=== PATIENT | male | born 1955 | race Caucasian/White ===

== ENCOUNTER 2018-09-07 19:52 | Inpatient (IN) | payer BC, OTHER ==
[~2018-09-07] VITALS: Ht 185.4 cm; Wt 147.4 kg
[2018-09-07] MEDS ORDERED: NS IV 1000 ML 1,000 ML IV SCH (20:03)
--- NOTE | 2018-09-07 20:12 | ED GI ---
General Chief Complaint: Abdominal/GI Problems Stated Complaint: GI BLEED Source of Information: Patient, Family, Spouse Exam Limitations: No Limitations History of Present Illness Date Seen by Provider: Sep 07, 2018 Time Seen by Provider: 19:45 Initial Comments Dark tarry stools for the past day and a half now pain. Dizziness lightheadedness passed out multiple times called EMS by . A colonoscopy 6 months ago that was unremarkable for screening By Dr. Colmenares. Patient states for the past few weeks she's been feeling a little more weak and tired than usual but has no history of any chest pressure and heart attacks or heart disease. He uses Breo for COPD, hydrochlorothiazide for blood pressure and lisinopril. He does not smoke he does drink beer about every day and denies any recreational drug use. Allergies and Home Medications Allergies Coded Allergies: No Known Drug Allergies (Unverified , 09/07/18) Patient Home Medication List Home Medication List Reviewed: Yes Review of Systems Review of Systems Constitutional: No chills, No dizziness, No fever EENTM: No Blurred Vision, No Double Vision Respiratory: Denies Cough, Denies Shortness of Air Cardiovascular: Denies Chest Pain, Denies Edema, Denies Irregular Heart Rate, Denies Lightheadedness, Denies Palpitations, Denies Syncope Gastrointestinal: Abdomen Distended; Denies Constipated, Denies Diarrhea; Other (Black tarry stools times one and a half days) Genitourinary: Denies Burning, Denies Discharge Musculoskeletal: No back pain, No joint pain Skin: No pruritus, No rash Past Tixshco-Vhuzjg-Sqqtaq Hx Patient Social History Alcohol Use: Regular Use Alcohol Beverage of Choice: Beer Recreational Drug Use: No Smoking Status: Never a Smoker Physical Exam Vital Signs Capillary Refill : Height/Weight/BMI Height: '" Weight: lbs. oz. kg; BMI Method: General Appearance: WD/WN, mild distress HEENT: PERRL/EOMI, normal ENT inspection, TMs normal, pharynx normal ( Oropharynx is dry) Neck: non-tender, full range of motion, supple, normal inspection Respiratory: chest non-tender, lungs clear, normal breath sounds, no respiratory distress, no accessory muscle use Cardiovascular: normal peripheral pulses, regular rate, rhythm Peripheral Pulses: 2+ Radial Pulses (R), 2+ Radial Pulses (L) Gastrointestinal: normal bowel sounds, non tender, soft Extremities: normal inspection, no pedal edema, normal capillary refill Neurologic/Psychiatric: 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, no motor/sensory deficits, alert, normal mood/affect, oriented x 3, other (Atraumatic head without Jang sign, hemotympanum or raccoon eyes.) Progress/Results/Core Measures Results/Orders Lab Results Laboratory Tests Test 09/07/18 19:55 Range/Units White Blood Count 9.1 4.3-11.0 10^3/uL Red Blood Count 2.00 L 4.35-5.85 10^6/uL Hemoglobin 5.3 *L 13.3-17.7 G/DL Hematocrit 17 *L 40-54 % Mean Corpuscular Volume 85 80-99 FL Mean Corpuscular Hemoglobin 27 25-34 PG Mean Corpuscular Hemoglobin Concent 31 L 32-36 G/DL Red Cell Distribution Width 21.7 H 10.0-14.5 % Platelet Count 132 130-400 10^3/uL Mean Platelet Volume 11.2 H 7.4-10.4 FL Neutrophils (%) (Auto) 76 H 42-75 % Lymphocytes (%) (Auto) 13 12-44 % Monocytes (%) (Auto) 11 0-12 % Eosinophils (%) (Auto) 0 0-10 % Basophils (%) (Auto) 0 0-10 % Neutrophils # (Auto) 6.9 1.8-7.8 X 10^3 Lymphocytes # (Auto) 1.2 1.0-4.0 X 10^3 Monocytes # (Auto) 1.0 0.0-1.0 X 10^3 Eosinophils # (Auto) 0.0 0.0-0.3 10^3/uL Basophils # (Auto) 0.0 0.0-0.1 10^3/uL Prothrombin Time 17.9 H 12.2-14.7 SEC INR Comment 1.5 H 0.8-1.4 Activated Partial Thromboplast Time 30 24-35 SEC Sodium Level 134 L 135-145 MMOL/L Potassium Level 4.4 3.6-5.0 MMOL/L Chloride Level 106 98-107 MMOL/L Carbon Dioxide Level 19 L 21-32 MMOL/L Anion Gap 9 5-14 MMOL/L Blood Urea Nitrogen 33 H 7-18 MG/DL Creatinine 0.77 0.60-1.30 MG/DL Estimat Glomerular Filtration Rate > 60 BUN/Creatinine Ratio 43 Glucose Level 143 H 70-105 MG/DL Calcium Level 7.4 L 8.5-10.1 MG/DL Corrected Calcium 8.8 8.5-10.1 MG/DL Magnesium Level 1.3 L 1.8-2.4 MG/DL Total Bilirubin 1.1 H 0.1-1.0 MG/DL Aspartate Amino Transf (AST/SGOT) 34 5-34 U/L Alanine Aminotransferase (ALT/SGPT) 27 0-55 U/L Alkaline Phosphatase 72 40-136 U/L Troponin I < 0.30 <0.30 NG/ML Total Protein 4.4 L 6.4-8.2 GM/DL Albumin 2.3 L 3.2-4.5 GM/DL Lipase 12 8-78 U/L Serum Alcohol < 10 <10 MG/DL My Orders Orders - JAIMEE VILLATORO Saline Lock/Iv-Start (09/07/18 20:03) Ns Iv 1000 Ml (Sodium Chloride 0.9%) (09/07/18 20:03) Alcohol (09/07/18 20:03) Cbc With Automated Diff (09/07/18 20:) Comprehensive Metabolic Panel (09/07/18 20:03) Lactic Acid Analyzer (09/07/18 20:03) Lipase (09/07/18 20:03) Magnesium (09/07/18 20:03) Protime With Inr (09/07/18 20:03) Partial Thromboplastin Time (09/07/18 20:03) Troponin I (09/07/18 20:03) Type And Screen (09/07/18 20:03) Blood Culture (09/07/18 20:03) Ct Abdomen/Pelvis W (09/07/18 20:03) Ondansetron Injection (Zofran Injectio (09/07/18 20:15) Vital Signs: Special (Order) (09/07/18 20:20) Consent-Obtain Consent For (09/07/18 20:20) Monitor S/S Transfusion Reacti (09/07/18 20:20) Ns Iv 500 Ml (Sodium Chloride 0.9%) (09/07/18 20:20) Red Cells Leukocytes Reduced (09/07/18 20:20) Preop Checklist (09/07/18 20:20) Pantoprazole Injection (Protonix Injecti (09/07/18 20:39) Ct Head/Cervical Spine Wo (09/07/18 20:50) Ondansetron Injection (Zofran Injectio (09/07/18 21:00) Fentanyl Injection (Sublimaze Injection (09/07/18 21:15) Hydrocodone/Apap 5/325 Tablet (Lortab 5 (09/07/18 22:45) Iohexol Injection (Omnipaque 350 Mg/Ml 1 (09/07/18 22:45) Contrast Received (Contrast Received) (09/07/18 22:45) Ns (Ivpb) (Sodium Chloride 0.9%) (09/07/18 22:45) Medications Given in ED Current Medications Medications Dose Ordered Sig/Eduardo Route Start Time Stop Time Status Last Admin Dose Admin Acetaminophen/ Hydrocodone Bitart 1 tab ONCE ONCE PO 09/07/18 22:45 09/07/18 22:46 DC 09/07/18 22:42 1 TAB Fentanyl Citrate 50 mcg ONCE ONCE IVP 09/07/18 21:15 09/07/18 21:16 DC 09/07/18 22:44 50 MCG Iohexol 100 ml ONCE ONCE IV 09/07/18 22:45 09/07/18 22:46 DC 09/07/18 22:51 100 ML Ondansetron HCl 4 mg ONCE ONCE IVP 09/07/18 20:15 09/07/18 20:16 DC 09/07/18 21:00 4 MG Ondansetron HCl 4 mg ONCE ONCE IVP 09/07/18 21:00 09/07/18 21:01 DC 09/07/18 22:45 4 MG Pantoprazole 40 mg STK-MED ONCE .ROUTE 09/07/18 20:39 09/07/18 20:41 DC 09/07/18 22:46 80 MG Sodium Chloride 250 ml ONCE ONCE IV 09/07/18 22:45 09/07/18 22:46 DC 09/07/18 22:51 80 ML Progress Progress Note : Time: 21:[address] of the head and C-spine as well as CT of the abdomen with contrast. Protonix 80 mg. Type and crossmatched for 4 units and holding 2. Plan to move him to the ICU as he has stabilized after a 30 cc/kg fluid bolus of 2500 cc. He has now with a blood pressure laying flat 115. Diagnostic Imaging Diagonstic Imaging: CT (Without contrast) Plain Films/CT/US/NM/MRI: c-spine, head Comments No acute intracranial abnormalities. No hemorrhages, mass effect, midline shift , tumors or calvarial fracture. No fracture or mis-alignment of the cervical spine. Reviewed: Reviewed by Me Diagonstic Imaging: CT (With contrast.) Plain Films/CT/US/NM/MRI: abdomen, pelvis Comments Mostly decompressed bowels. No free fluid or air. Lumbar and thoracic spine other osseous structures as visualized are unremarkable for acute changes. There is degenerative changes noted. There is a thickened appearance to the gallbladder. Findings suspicious for reported hypertension. Hepatic steatosis with possible chronic liver disease. Small amount of ascites. Gallbladder wall thickening is likely from ascites. Ascending colon thickening could be from cirrhotic colopathy versus colitis. Nonspecific gastric distention. Reviewed: Reviewed by Me Departure Communication (Admissions) Time/Spoke to Admitting Phy: 20:55 Discussed the case with Dr. Kay. She agrees with ICU and consulting Dedra and Dr. Serna in the morning. Time/Spoke to Consulting Phy: 20:[address] Moe, General Surgery and since the patient is stable he agrees with putting the patient in the ICU on Protonix 40 mg twice a day and having Dr. Colmenares consult on the case in the morning. He'll be available for phone calls throughout the night. Impression Primary Impression: GI bleed Qualified Codes: K92.2 - Gastrointestinal hemorrhage, unspecified Additional Impressions: Acute blood loss anemia Hypomagnesemia Disposition: ADMITTED INPATIENT Condition: Critical Admissions Decision to Admit Reason: Admit from ER (General) Decision to Admit/Date: Sep 07, 2018 Time/Decision to Admit Time: 21:00 Departure-Patient Inst. Referrals: UNKNOWN (PCP/Family) Primary Care Physician JAIMEE VILLATORO Sep 07, 2018 20:11
[2018-09-07 20:15] LABS: BASOPHILS % (AUTO) 0 % (0-10); EOSINOPHILS % (AUTO) 0 % (0-10); LYMPHOCYTES # (AUTO) 1.2 X 10^3 (1.0-4.0); LYMPHOCYTES % (AUTO) 13 % (12-44); MEAN CORPUSCULAR HEMOGLOBIN 27 PG (25-34); MEAN CORPUSCULAR HGB CONC 31 G/DL (32-36); MEAN CORPUSCULAR VOLUME 85 FL (80-99); MEAN PLATELET VOLUME 11.2 FL (7.4-10.4); MONOCYTES % (AUTO) 11 % (0-12); NEUTROPHILS # (AUTO) 6.9 X 10^3 (1.8-7.8); NEUTROPHILS % (AUTO) 76 % (42-75); PLATELET COUNT 132 10^3/uL (130-400); RED CELL DISTRIBUTION WIDTH 21.7 % (10.0-14.5); WHITE BLOOD COUNT 9.1 10^3/uL (4.3-11.0)
[2018-09-07] MEDS ORDERED: PANTOPRAZOLE INJECTION 200 MG in NS (IVPB) 100 ML IV SCH (20:15)
[2018-09-07] MEDS ORDERED: ONDANSETRON 4 MG/2 ML (SDV) Z0FRAN IVP ONE ×2 (20:15→21:00)
[2018-09-07] MEDS ORDERED: PANTOPRAZOLE 40 MG (PROTONIX) VIAL IV ONE (20:15)
[2018-09-07 20:17] LABS: HEMATOCRIT 17 % (40-54); HEMOGLOBIN 5.3 G/DL (13.3-17.7)
[2018-09-07] MEDS ORDERED: NS IV 500 ML 500 ML IV SCH (20:20)
[2018-09-07 20:29] LABS: ALANINE AMINOTRANSFERASE 27 U/L (0-55); ALBUMIN 2.3 GM/DL (3.2-4.5); ALKALINE PHOSPHATASE 72 U/L (40-136); BILIRUBIN,TOTAL 1.1 MG/DL (0.1-1.0); BUN/CREATININE RATIO 43; CALCIUM 7.4 MG/DL (8.5-10.1); CARBON DIOXIDE 19 MMOL/L (21-32); CHLORIDE 106 MMOL/L (98-107); CREATININE SERUM 0.77 MG/DL (0.60-1.30); GFR ESTIMATED > 60; GLUCOSE 143 MG/DL (70-105); LIPASE 12 U/L (8-78); MAGNESIUM 1.3 MG/DL (1.8-2.4); POTASSIUM 4.4 MMOL/L (3.6-5.0); SODIUM 134 MMOL/L (135-145); TOTAL PROTEIN 4.4 GM/DL (6.4-8.2)
[2018-09-07 20:32] LABS: INR 1.5 (0.8-1.4); PROTHROMBIN TIME PATIENT 17.9 SEC (12.2-14.7)
[2018-09-07] MEDS ORDERED: PANTOPRAZOLE 40 MG (PROTONIX) VIAL ONE (20:39)
[2018-09-07] MEDS ORDERED: fentaNYL INJECTION 100 MCG/2 ML AMP IVP ONE (21:15)
[2018-09-07] MEDS ORDERED: NS 250 ML (IVPB) BAG IV ONE (22:45)
[2018-09-07] MEDS ORDERED: RECEIVED CONTRAST (Hold Metformin) IV SCH (22:45)
[2018-09-07] MEDS ORDERED: HYDROcodone/APAP 5 MG/325 MG (LORTAB) TAB PO ONE (22:45)
[2018-09-07] MEDS ORDERED: IOHEXOL 350 MG/ML 100 ML (OMNIPAQUE 350) VIAL IV ONE (22:45)
[2018-09-07 23:26] VITALS: BP 115/53
[2018-09-07 23:30] VITALS: BP 119/40
[2018-09-07 23:39] VITALS: BP 136/59
[2018-09-07 23:45] VITALS: BP 133/107
[2018-09-07 23:53] VITALS: BP 133/107
[2018-09-08] VITALS (39 sets, daily range): BP systolic 91–127; BP diastolic 36–67
[2018-09-08] MEDS ORDERED: RT-ALBUTEROL SULF 2.5 MG/3 ML PRE-MIX VIAL INH PRN
[2018-09-08] MEDS ORDERED: fentaNYL INJECTION 100 MCG/2 ML AMP ONE (00:06)
[2018-09-08 01:19] LABS: BASOPHILS % (AUTO) 0 % (0-10); EOSINOPHILS % (AUTO) 0 % (0-10); HEMATOCRIT 21 % (40-54); LYMPHOCYTES # (AUTO) 1.3 X 10^3 (1.0-4.0); LYMPHOCYTES % (AUTO) 11 % (12-44); MEAN CORPUSCULAR HEMOGLOBIN 27 PG (25-34); MEAN CORPUSCULAR HGB CONC 32 G/DL (32-36); MEAN CORPUSCULAR VOLUME 86 FL (80-99); MEAN PLATELET VOLUME 10.9 FL (7.4-10.4); MONOCYTES % (AUTO) 8 % (0-12); NEUTROPHILS # (AUTO) 9.9 X 10^3 (1.8-7.8); NEUTROPHILS % (AUTO) 81 % (42-75); PLATELET COUNT 108 10^3/uL (130-400); RED BLOOD COUNT 2.41 10^6/uL (4.35-5.85); RED CELL DISTRIBUTION WIDTH 20.2 % (10.0-14.5); WHITE BLOOD COUNT 12.2 10^3/uL (4.3-11.0)
[2018-09-08] MEDS ORDERED: NS W/KCL 20 MEQ/L 1,000 ML IV SCH (01:30)
[2018-09-08] MEDS ORDERED: ONDANSETRON 4 MG/2 ML (SDV) Z0FRAN IV PRN (01:30)
[2018-09-08 01:37] LABS: BUN/CREATININE RATIO 49; CALCIUM 7.3 MG/DL (8.5-10.1); CARBON DIOXIDE 18 MMOL/L (21-32); CHLORIDE 109 MMOL/L (98-107); CREATININE SERUM 0.75 MG/DL (0.60-1.30); GFR ESTIMATED > 60; GLUCOSE 147 MG/DL (70-105); MAGNESIUM 1.4 MG/DL (1.8-2.4); PHOSPHORUS 2.9 MG/DL (2.3-4.7); POTASSIUM 4.5 MMOL/L (3.6-5.0); SODIUM 136 MMOL/L (135-145)
[2018-09-08 01:38] LABS: HEMOGLOBIN 6.6 G/DL (13.3-17.7)
[2018-09-08] MEDS: fentaNYL INJECTION 100 MCG/2 ML AMP IV PRN ×6 (02:47→22:06)
[2018-09-08 04:50] LABS: HEMOGLOBIN 7.8 G/DL (13.3-17.7)
[2018-09-08 05:01] LABS: INR 1.4 (0.8-1.4); PROTHROMBIN TIME PATIENT 17.2 SEC (12.2-14.7)
--- NOTE | 2018-09-08 06:01 | Pulmonary Consultation ---
History of Present Illness History of Present Illness Date of Consultation 09/08/18 05:56 Date of Admission Allergies and Home Medications Allergies Coded Allergies: No Known Drug Allergies (Unverified , 09/07/18) Past Qmdjgos-Owhbiu-Itzcjf Hx Patient Social History Alcohol Use: Regular Use Number of Drinks Today: AA Alcohol Beverage of Choice: Beer Recreational Drug Use: No Smoking Status: Never a Smoker Recent Foreign Travel: Yes Contact w/Someone Who Travel: No Recent Infectious Disease Expo: No Recent Hopitalizations: No Immunizations Up To Date Date of Influenza Vaccine: Jul 28, 2018 Seasonal Allergies Seasonal Allergies: Yes Past Medical History Surgeries: Yes Respiratory: Yes COPD Cardiac: No Hypertension Neurological: No Genitourinary: No Gastrointestinal: No Musculoskeletal: No Endocrine: No HEENT: No Cancer: No Psychosocial: No Integumentary: No Blood Disorders: No Adverse Reaction/Blood Tranf: No Sepsis Event Evaluation Height, Weight, BMI Height: 6'1.00" Weight: 321lbs. 0.0oz. [id number]; 42.4 BMI Method: Exam Exam Vital Signs Date Time Temp Pulse Resp B/P (MAP) Pulse Ox O2 Delivery O2 Flow Rate FiO2 09/08/18 05:35 97.9 84 20 102/46 98 Room Air 09/08/18 05:16 98.8 87 20 91/48 99 Room Air 09/08/18 05:00 84 21 110/50 (70) 99 Room Air 09/08/18 04:14 98.3 89 14 124/46 99 Room Air 09/08/18 04:00 86 14 122/53 (76) 98 Room Air 09/08/18 03:00 86 16 112/53 (72) 98 Nasal Cannula 2.00 09/08/18 02:30 98.7 87 20 120/56 100 Room Air 09/08/18 02:11 98.4 85 20 103/56 99 Room Air 09/08/18 02:00 89 17 118/56 (76) 99 Nasal Cannula 2.00 09/08/18 01:56 97.8 89 18 127/56 99 Room Air 09/08/18 01:00 90 09/08/18 01:00 90 25 108/67 (81) 100 Nasal Cannula 2.00 09/08/18 00:45 85 14 118/51 (73) 96 Nasal Cannula 2.00 09/08/18 00:30 84 11 111/50 (70) 99 Nasal Cannula 2.00 09/08/18 00:15 81 8 99/44 (62) 100 Nasal Cannula 2.00 09/08/18 00:12 97.9 83 18 102/51 100 Nasal Cannula 2.00 09/08/18 00:00 99 Room Air 2.00 09/08/18 00:00 55 15 117/52 (73) 100 Nasal Cannula 2.00 09/07/18 23:53 98.9 87 14 133/107 100 Nasal Cannula 2.00 09/07/18 23:45 92 14 133/107 (116) 99 Nasal Cannula 2.00 09/07/18 23:39 91 99 09/07/18 23:39 99 Nasal Cannula 2.00 09/07/18 23:30 89 15 119/40 (66) 98 Nasal Cannula 2.00 09/07/18 23:27 100 09/07/18 23:26 96 18 115/53 (73) 97 Nasal Cannula 2.00 09/07/18 23:21 99 Room Air 2.00 09/07/18 23:08 94 14 136/59 (84) 99 Room Air I & O 09/08/18 07:00 Intake Total 500 ml Output Total 300 ml Balance 200 ml Height & Weight Height: 6'1.00" Weight: 321lbs. 0.0oz. 145.675372jj; 42.4 BMI Method: Peripheral Pulses: 2+ Radial Pulses (R), 2+ Radial Pulses (L) Gastrointestinal: normal bowel sounds, non tender, soft Results Lab Laboratory Tests 09/07/18 19:55 09/08/18 01:10 09/08/18 04:45 Assessment/Plan Assessment/Plan Acute GIB s/p colonoscopy 6mo ago which was normal -S/p 3 units of PRBC -Protonix 40mg IV BID -Serial H&H -surgery consulted Metabolic lactic acidosis -IVF -transfusions REJI GAXIOLA DO Sep 08, 2018 6:01 am
--- NOTE | 2018-09-08 06:18 | Diagnostic Imaging Report ---
PROCEDURE: CT head and CT cervical spine without contrast. TECHNIQUE: Multiple contiguous axial images were obtained through the brain and cervical spine without the use of intravenous contrast. Sagittal and coronal reformations through the cervical spine were then performed. INDICATION: Fall with head and neck injury. CT HEAD: Multiple contiguous axial CT images of the head were obtained. FINDINGS: Ventricles and sulci are within normal limits for size. There is no intracranial hemorrhage identified. There is no abnormal mass effect or shift of midline structures. IMPRESSION: Unremarkable CT of the head. CT cervical spine: FINDINGS: There is straightening of normal cervical lordosis with moderate narrowing of lower cervical disc spaces. There is associated endplate spurring and degenerative facet arthropathy which is most pronounced on the right at C3-C4 and C4-C5 levels. There is no evidence of an acute fracture. No paraspinous hematoma is detected. IMPRESSION: Cervical spondylosis without CT evidence of acute cervical spinal abnormality. Dictated by: Dictated on workstation # [id number]
--- NOTE | 2018-09-08 07:26 | Diagnostic Imaging Report ---
PROCEDURE: CT abdomen and pelvis with contrast. TECHNIQUE: Multiple contiguous axial images were obtained through the abdomen and pelvis after administration of intravenous contrast. INDICATION: Abdominal pain and gastrointestinal bleeding. FINDINGS: There is mild hiatal hernia. There is mural thickening of the distal esophagus with prominent paraesophageal vessels which likely represent varices. No focal hepatic or splenic lesion is identified. There is small amount of fluid surrounding the gallbladder. The stomach is distended with high density material which may be blood. There may be mild surrounding edema and inflammation along the pancreas without focal fluid collection identified. No definite renal or adrenal gland abnormality is identified. There is mild ascites. No focal fluid collection is seen to indicate abscess or hematoma. There is [id number] mural thickening in the ascending colon. IMPRESSION: Findings suggestive of portal venous hypertension and probable esophageal varices. This may be source of gastrointestinal bleeding with high density material seen within the lumen of the stomach. There is mild ascites and pericholecystic fluid. Nonspecific mural thickening of the ascending colon could be due to edema or colitis. There is nonspecific densities surrounding the pancreas. Correlation with laboratory values would be useful to exclude pancreatitis. Dictated by: Dictated on workstation # [id number]
--- NOTE | 2018-09-08 07:29 | Diagnostic Imaging Report ---
INDICATION: Anemia, hypotension and gastrointestinal bleeding. COMPARISON: No previous study is available for comparison at this time. FINDINGS: Heart size and pulmonary vasculature are within normal limits, and the lungs are clear, bilaterally. IMPRESSION: Unremarkable chest. Dictated by: Dictated on workstation # [id number]
[2018-09-08] MEDS: NS IV 1000 ML 1,000 ML IV SCH ×3 (09:06→16:39)
[2018-09-08] MEDS: PANTOPRAZOLE 40 MG (PROTONIX) VIAL IV SCH ×2 (09:06→22:05)
[2018-09-08] MEDS ORDERED: MAGNESIUM 1 GM/100 ML IVPB 200 ML IV ONE (10:03)
[2018-09-08] MEDS: MAGNESIUM 1 GM/100 ML IVPB 100 ML IV SCH ×2 (10:08→11:42)
[2018-09-08] MEDS ORDERED: OMG1KC PO (10:37)
[2018-09-08] MEDS ORDERED: MULT-35 PO (10:37)
[2018-09-08] MEDS ORDERED: LISI40TA PO (10:37)
[2018-09-08] MEDS ORDERED: CHOL5000 PO (10:37)
[2018-09-08] MEDS ORDERED: POTA99TA21 PO (10:37)
[2018-09-08] MEDS ORDERED: FLUT1BLS IH (10:37)
[2018-09-08] MEDS ORDERED: HYDR25TA4 PO (10:39)
[2018-09-08] MEDS ORDERED: FUROSEMIDE 40 MG/4 ML INJ (LASIX) IVP NR (12:00)
[2018-09-08 12:31] LABS: HEMOGLOBIN 6.8 G/DL (13.3-17.7)
[2018-09-08 12:44] LABS: INR 1.2 (0.8-1.4); PROTHROMBIN TIME PATIENT 15.6 SEC (12.2-14.7)
[2018-09-08] MEDS: POTASSIUM CL 10MEQ/50ML IVPB 50 ML IV SCH ×4 (12:56→17:38)
[2018-09-08] MEDS ORDERED: NS IV 500 ML 500 ML ONE (13:08)
[2018-09-08] MEDS ORDERED: EPINEPHrine INJECTION 1 MG/ML AMP ONE (15:11)
--- NOTE | 2018-09-08 15:17 | History & Physical-Hospitalist ---
BOWEN OCASIO MD 09/08/18 1517: History of Present Illness HPI/Chief Complaint The patient is a 63-year-old white male who was admitted yesterday. He reports that he has had intermittent black stools for several months. These were clear and he would go on. Over the last week or so he has had much more consistent black stools and sometimes several per day. He reports that yesterday he had multiple stools and began to feel weaker and weaker and finally he slumped to the floor. When he attempted to get back up. Was unable to do so. He was brought to the emergency room for further evaluation and was found to have a hemoglobin of 5.3. Date Seen 09/08/18 Time Seen by a Provider: 15:16 Attending Physician Bowen Ocasio MD PCP Alejandro Crockett DO Referring Physician Date of Admission Sep 07, 2018 at 23:00 Home Medications & Allergies Home Medications Reviewed patient Home Medication Reconciliation performed by pharmacy medication reconciliations care technician and/or nursing. Patients Allergies have been reviewed. Allergies Allergies Coded Allergies No Known Drug Allergies (Nsjztcjpdr74/25/18) Past Jsoqtds-Osiujh-Tsuncj Hx Patient Social History Alcohol Use: Regular Use Number of Drinks Today: AA Alcohol Beverage of Choice: Beer Recreational Drug Use: No Smoking Status: Never a Smoker Physical Abuse Screen: No Sexual Abuse: No Recent Foreign Travel: Yes Contact w/other who traveled: No Recent Hopitalizations: No Recent Infectious Disease Expo: No Immunizations Up To Date Date of Influenza Vaccine: Jul 28, 2018 Seasonal Allergies Seasonal Allergies: Yes Past Medical History Cardiac: Hypertension History of Blood Disorders: No Adverse Reaction to Blood Humphries: No Physical Exam Physical Exam Vital Signs Vital Signs - First Documented 09/07/18 09/07/18 20:03 23:21 Temp 97.6 Pulse 94 Resp 14 B/P (MAP) 92/43 (59) Pulse Ox 100 O2 Delivery Room Air O2 Flow Rate 2.00 Capillary Refill : Less Than 3 Seconds Height, Weight, BMI Height: 6'1.00" Weight: 321lbs. 0.0oz. 145.120955yy; 42.4 BMI Method:Stated Results Results/Procedures Labs Laboratory Tests 09/07/18 19:55 09/08/18 01:10 09/08/18 04:45 11/26/18 12:20 Patient resulted labs reviewed. Clinical Quality Measures DVT/VTE Risk/Contraindication: Risk Factor Score Per Nursin RFS Level Per Nursing on Admit: 3=High CARMENELVIN BAJWAJULIETA Barros MED STUDENT 09/08/18 1613: History of Present Illness HPI/Chief Complaint CC: Dizziness and Fatigue HPI: The patient is a 63 y/o male who presented to the ER at [facility] yesterday with a chief complaint of dizziness and fatigue. He states that he has been having intermittent black and tarry stools for the past 4-5 months. He also states that he occasionally has upper abdominal pain which he describes as a mild burning. He also admits to occasional heartburn. Saturday morning he awoke around 5:30 am and was very dizzy upon sitting up in bed and just felt like he couldn't get out of bed. He said that throughout the day he would become dizzy and unsteady whenever he would attempt to get up and move around. Around 7pm he passed out while trying to ambulate and his convinced him to go to the ER. He states that he had a colonoscopy 1 year ago that was unremarkable. Source: patient, family Exam Limitations: no limitations Home Medications & Allergies Home Medications Active Scripts Medications Dose Route/Sig Max Daily Dose Days Date Category Hydrochlorothiazide 25 Mg Tablet 25 Mg PO DAILY 09/08/18 Reported Daily Multiple Vitamin (Multivitamin) 1 Each Tablet 1 Tab PO DAILY 09/08/18 Reported Breo Ellipta 200-25 Mcg INH (Fluticasone/Vilanterol) 1 Each Blst.w.dev 1 Puff IH DAILY 09/08/18 Reported Lisinopril 40 Mg Tablet 40 Mg PO DAILY 09/08/18 Reported Potassium (Potassium Gluconate) 99 Mg Tablet 99 Mg PO DAILY 09/08/18 Reported Fish Oil 1,000 mg Capsule ([place]wood 3 Polyunsat Fatty Acids) 1,000 Mg Cap 1,000 Mg PO DAILY 09/08/18 Reported Vitamin D3 (Cholecalciferol (Vitamin D3)) 5,000 Unit Capsule 5,000 Unit PO DAILY 09/08/18 Reported Allergies Allergies: NKDA Past Plwrimr-Nggcgs-Bjzvlt Hx Patient Social History Marrital Status: Employed/Student: employed Alcohol Use: Regular Use Alcohol Beverage of Choice: Beer Recreational Drug Use: No Smoking Status: Never a Smoker Past Medical History Surgeries: Orthopedic Cardiac: Hypertension Review of Systems Constitutional: dizziness, weakness EENTM: no symptoms reported Respiratory: short of breath Cardiovascular: no symptoms reported Gastrointestinal: RUQ, LUQ, abdominal pain Musculoskeletal: no symptoms reported Skin: no symptoms reported Physical Exam Physical Exam General Appearance: No Apparent Distress, WD/WN Respiratory: Chest Non Tender, Lungs Clear, Normal Breath Sounds, No Accessory Muscle Use, No Respiratory Distress Cardiovascular: Regular Rate, Rhythm, No Edema, No Gallop, No JVD, No Murmur, Normal Peripheral Pulses Gastrointestinal: Normal Bowel Sounds, No Organomegaly, No Pulsatile Mass, Non Tender, Soft Neurologic/Psychiatric: Alert, Oriented x3, No Motor/Sensory Deficits, Normal Mood/Affect Skin: Normal Color, Warm/Dry Results Results/Procedures Labs Vital Signs 09/08/18 09/08/18 03:00 13:27 Temp 98.2 Pulse 85 Resp 25 B/P (MAP) 115/62 Pulse Ox 99 O2 Delivery Room Air O2 Flow Rate 2.00 Laboratory Tests 09/07/18 19:55 09/08/18 01:10 09/08/18 04:45 09/08/18 12:20 Assessment/Plan Assessment and Plan Assessment: 1) GI bleed 2) Anemia Plan: 1) Surgical consult -Possible EGD to determine source of bleeding 2) Blood transfusion -due to very low Hgb and Hct 3) Cardiac consultation -due to previous Htn and syncope BOWEN OCASIO MD Sep 08, 2018 15:17 TAJ ROGERS MED STUDENT Sep 08, 2018 16:13
[2018-09-08] MEDS ORDERED: MIDAZOLAM 2 MG/2 ML (VERSED) VIAL ONE ×3 (15:33→15:52)
--- NOTE | 2018-09-08 15:37 | Conscious Sedation/ASA ---
Conscious Sedation Pre-Proced Time 15:00 ASA Score 2 For ASA 3 and 4: Consider anesthesia and medical clearance. Also, for patients with a history of failed moderate sedation consider anesthesia. Airway Lungs Heart ASA score ASA 1: a normal healthy patient ASA 2: a patient with a mild systemic disease (mid diabetes, controlled hypertension, obesity ASA 3: a patient with a severe systemic disease that limits activity (angina , COPD, prior Myocardial infarction) ASA 4: a patient with an incapacitating disease that is a constant threat to life (CHF, renal failure) ASA 5: a moribund patient not expected to survive 24 hrs. (ruptured aneurysm) ASA 6: a declared brain patient whose organs are being harvested. For emergent operations, add the letter E after the classification Mallampati Classification Grade 3 Sedation Plan Analgesia, Amnesia, Plan communicated to team members, Discussed options with patient/fam, Discussed risks with patient/fam The patient is an appropriate candidate to undergo the planned procedure, sedation, and anesthesia. The patient immediately re-assessed prior to indication. CHAVEZ THURMAN MD Sep 08, 2018 3:37 pm
--- NOTE | 2018-09-08 15:37 | Progress Note-Pre Operative ---
Pre-Operative Progress Note H&P Reviewed The H&P was reviewed, patient examined and no changes noted. Date Seen by Provider: Sep 08, 2018 Time Seen by Provider: 15:00 Date H&P Reviewed: Sep 08, 2018 Time H&P Reviewed: 15:00 Pre-Operative Diagnosis: dark tarry stool CHAVEZ THURMAN MD Sep 08, 2018 3:37 pm
--- NOTE | 2018-09-08 17:19 | Progress Note-Post Operative ---
Post-Operative Progess Note Surgeon (s)/Boiler Riveter (s) Surgeon CHAVEZ THURMAN MD Boiler Riveter: none Pre-Operative Diagnosis dark tarry stool Post-Operative Diagnosis stage 1 esophageal varices, reflux esophagitis(stage 2), small hiatal hernia(1cm), moderate gastritis. no active bleed. Procedure & Operative Findings Date of Procedure 09/08/18 Procedure Performed/Findings EGD with bx. Anesthesia Type CS Estimated Blood Loss Estimated blood loss (mL): minimal Specimens/Packing Specimens Removed antrum CHAVEZ THURMAN MD Sep 08, 2018 5:19 pm
[2018-09-08 18:59] LABS: BASOPHILS % (AUTO) 0 % (0-10); EOSINOPHILS # (AUTO) 0.1 10^3/uL (0.0-0.3); EOSINOPHILS % (AUTO) 1 % (0-10); HEMATOCRIT 23 % (40-54); HEMOGLOBIN 7.3 G/DL (13.3-17.7); LYMPHOCYTES # (AUTO) 1.8 X 10^3 (1.0-4.0); LYMPHOCYTES % (AUTO) 16 % (12-44); MEAN CORPUSCULAR HEMOGLOBIN 27 PG (25-34); MEAN CORPUSCULAR HGB CONC 32 G/DL (32-36); MEAN CORPUSCULAR VOLUME 85 FL (80-99); MEAN PLATELET VOLUME 11.2 FL (7.4-10.4); MONOCYTES # (AUTO) 1.4 X 10^3 (0.0-1.0); MONOCYTES % (AUTO) 13 % (0-12); NEUTROPHILS # (AUTO) 7.5 X 10^3 (1.8-7.8); NEUTROPHILS % (AUTO) 69 % (42-75); PLATELET COUNT 70 10^3/uL (130-400); RED BLOOD COUNT 2.66 10^6/uL (4.35-5.85); RED CELL DISTRIBUTION WIDTH 18.9 % (10.0-14.5); WHITE BLOOD COUNT 10.8 10^3/uL (4.3-11.0)
[2018-09-09] VITALS (19 sets, daily range): BP systolic 99–138; BP diastolic 38–68
[2018-09-09 00:24] LABS: HEMOGLOBIN 6.8 G/DL (13.3-17.7)
--- NOTE | 2018-09-09 00:41 | CONSULTATION REPORT ---
DATE OF SERVICE: 09/08/2018 ATTENDING PRIMARY CARE PHYSICIAN: Alejandro Crockett DO ADMITTING PHYSICIAN: Dr. Kay. HISTORY OF PRESENT ILLNESS: The patient is a 63-year-old male known to us. We had seen him for a colonoscopy approximately 6 months ago. The colonoscopy did show some chronic hemorrhoids as well as some mild diverticulosis; however, no other abnormalities detected. He did present with fatigue as well as black tarry stools. He then felt extremely weak and then states that it was hard for him to even ambulate. He was brought to the emergency room and found to have a hemoglobin of 5.3. Upon further questioning, he reports that he has had noticed some slightly darker stools in the past several months. He also does admit to a significant history of alcohol use over the years, which used to be hard alcohol on a daily basis. However, right now he drinks six beers on a daily basis. He does report history of reflux; however, does not take any medications for this. Since being admitted, he has received approximately 3 units of blood and states that he does feel better at this time. PAST MEDICAL HISTORY: Hypertension. PAST SURGICAL HISTORY: None. ALLERGIES: No known drug allergies. MEDICATIONS: Hydrochlorothiazide 25 mg daily, lisinopril 20 mg daily. SOCIAL HISTORY: Negative smoke. Positive alcohol approximately 6 beers daily. FAMILY HISTORY: Noncontributory. VITAL SIGNS: Temperature 98.6, blood pressure 120's systolic, pulse 112, respirations 17, pulse ox 93% on 2 liters nasal cannula. REVIEW OF SYSTEMS: Well-nourished male currently in no acute distress. He is not experiencing any shortness of breath or difficulty breathing. No chest pain, palpitations, diaphoresis. No nausea, vomiting with intermittent episodes of dark tarry stools, which was much more significant in the past several weeks with weakness, fatigue and shortness of breath. No fever, chills, no recent inadvertent weight loss. All the other review of systems is negative. PHYSICAL EXAMINATION: CHEST: Few scattered rales bilaterally. HEART: Regular, no murmurs. EXTREMITIES: No lower extremity edema, negative Homans sign. HEENT: No scleral icterus. NECK: No cervical lymphadenopathy. ABDOMEN: Soft, nontender, nondistended. SKIN: Warm, dry. LABORATORY DATA: Hemoglobin 6.8, hematocrit 21, platelets 108. ASSESSMENT AND PLAN: A 63-year-old male with an upper GI bleed. He does have an extensive history of alcoholism as well as a history of gastroesophageal reflux disease and possible peptic ulcer disease with dark tarry stools and fatigue and anemia. He did have a recent colonoscopy, which was generally normal with no signs of bleeding. Due to his recent findings of symptomatic anemia and signs and symptoms of upper gastrointestinal bleeding, we will proceed with an EGD as well as biopsies as appropriate. Job ID: [id number] DocumentID: [id number] Dictated Date: 09/08/2018 17:29:17 Bar And Filler Assembler Date: 09/09/2018 00:40:44 Dictated By: CHAVEZ THURMAN MD MTDD
[2018-09-09] MEDS: fentaNYL INJECTION 100 MCG/2 ML AMP IV PRN ×2 (01:09→03:09)
--- NOTE | 2018-09-09 03:08 | OPERATIVE REPORT ---
DATE OF SERVICE: 09/08/2018 ATTENDING PRIMARY CARE PHYSICIAN: Dr. Crockett. ADMITTING PHYSICIAN: Dr. Kay. PREOPERATIVE DIAGNOSIS: Upper gastrointestinal bleed. POSTOPERATIVE DIAGNOSES: Stage I esophageal varices, reflux esophagitis, stage II small hiatal hernia 1 cm in size, moderate severity diffuse gastritis, no active bleeding. PROCEDURE: EGD with biopsy. SURGEON: Dr. Colmenares. ANESTHESIA: Conscious sedation. ESTIMATED BLOOD LOSS: Minimal. FINDINGS: Stage I esophageal varices, no active bleeding. Chronic stage II reflux esophagitis. No ulcerations or strictures. A small hiatal hernia 1 cm in size. Moderate severity gastritis, no active bleeding. INDICATIONS: The patient is a 63-year-old male known to us. We had seen him for a colonoscopy approximately 6 months ago. The colonoscopy showed mild chronic stage II external and internal hemorrhoids as well as mild diverticulosis; however, no bleeding sources identified. He presented with fatigue and dark tarry stools, which had been going on for a few weeks as well as shortness of breath. His hemoglobin was found to be 5.4. Upon further questioning, he does admit to a significant alcohol history in the past. He also does have signs and symptoms of gastroesophageal reflux disease as well as potential peptic ulcer disease. He does not report any hematemesis, no coffee-ground emesis. DESCRIPTION OF PROCEDURE: The patient maintained in the ICU under monitor. After adequate IV pain and sedating medications and conscious sedation, the mouthpiece was applied. The endoscope was placed in the mouth, visualizing the pharynx and hypopharyngeal region. Vocal cords, epiglottis and vallecula identified and appeared to be normal. The endoscope was gently intubated at the esophageal opening and esophagus was insufflated. The endoscope was then advanced through the first, second and third portions of the esophagus. At the distal esophagus, stage I esophageal varices were identified, which were straight and encompassed less than one third of the luminal diameter of the esophagus. There was no active bleeding identified. There was a reflux esophagitis stage II with no strictures or ulcerations as well as no active bleeding. The endoscope was then easily advanced in the stomach and endoscope retroflexed, visualizing small hiatal hernia approximately 1 cm in size. There was moderate severity gastritis identified. There were no formal ulcerations as well as no active bleeding identified. Biopsy was taken of the antrum of the stomach with forceps with visualization of good hemostasis. The endoscope was then advanced through the pylorus into the first and second portions of duodenum, which appeared normal with no distal obstructions. The endoscope was then slowly withdrawn while taking a second look and suctioning of residual air with no additional findings. The patient tolerated the procedure well. It appears that he does have early esophageal varices, most likely secondary to early liver cirrhosis, which would be modified Child-Simmons classification A. We will recommend the necessary medical management with a low sodium diet as well as water restriction and spironolactone. He will also need to refrain from alcohol and proceed with change in dietary and lifestyle including regularly scheduled exercise and weight loss. We will also start him on Protonix 40 mg daily. Job ID: [id number] DocumentID: [id number] Dictated Date: 09/08/2018 17:39:17 Hot Dimpling Machine Operator Date: 09/09/2018 03:07:35 Dictated By: CHAVEZ COLMENARES MD
[2018-09-09 05:00] LABS: BASOPHILS % (AUTO) 0 % (0-10); EOSINOPHILS # (AUTO) 0.2 10^3/uL (0.0-0.3); EOSINOPHILS % (AUTO) 2 % (0-10); HEMATOCRIT 23 % (40-54); HEMOGLOBIN 7.3 G/DL (13.3-17.7); LYMPHOCYTES # (AUTO) 2.1 X 10^3 (1.0-4.0); LYMPHOCYTES % (AUTO) 23 % (12-44); MEAN CORPUSCULAR HEMOGLOBIN 27 PG (25-34); MEAN CORPUSCULAR HGB CONC 32 G/DL (32-36); MEAN CORPUSCULAR VOLUME 85 FL (80-99); MONOCYTES # (AUTO) 1.4 X 10^3 (0.0-1.0); MONOCYTES % (AUTO) 15 % (0-12); NEUTROPHILS # (AUTO) 5.5 X 10^3 (1.8-7.8); NEUTROPHILS % (AUTO) 60 % (42-75); PLATELET COUNT 60 10^3/uL (130-400); RED BLOOD COUNT 2.69 10^6/uL (4.35-5.85); RED CELL DISTRIBUTION WIDTH 18.5 % (10.0-14.5); WHITE BLOOD COUNT 9.2 10^3/uL (4.3-11.0)
[2018-09-09 05:19] LABS: BUN/CREATININE RATIO 44; CALCIUM 7.2 MG/DL (8.5-10.1); CARBON DIOXIDE 20 MMOL/L (21-32); CHLORIDE 111 MMOL/L (98-107); CREATININE SERUM 0.87 MG/DL (0.60-1.30); GFR ESTIMATED > 60; GLUCOSE 118 MG/DL (70-105); PHOSPHORUS 2.9 MG/DL (2.3-4.7); POTASSIUM 4.1 MMOL/L (3.6-5.0); SODIUM 137 MMOL/L (135-145)
[2018-09-09] MEDS: POTASSIUM CL 10MEQ/50ML IVPB 50 ML IV SCH (06:23)
[2018-09-09] MEDS: MAGNESIUM 1 GM/100 ML IVPB 100 ML IV SCH (06:24)
[2018-09-09] MEDS: KCL 20 MEQ TAB (K-DUR) PO SCH (06:24)
[2018-09-09] MEDS: NS IV 1000 ML 1,000 ML IV SCH ×4 (06:31→20:30)
--- NOTE | 2018-09-09 07:38 | Pulmonary Progress Note ---
Subjective Time Seen by a Provider: 07:36 Subjective/Events-last exam PT feels better. He did have EGD yesterday. Sepsis Event Evaluation Height, Weight, BMI Height: 6'1.00" Weight: 321lbs. 0.0oz. [id number]; 42.4 BMI Method:Stated Focused Exam Lactate Level 09/07/18 01:10: Lactic Acid Level 3.08*H 09/07/18 23:03: Lactic Acid Level 3.34*H Exam Exam Vital Signs Date Time Temp Pulse Resp B/P (MAP) Pulse Ox O2 Delivery O2 Flow Rate FiO2 09/09/18 06:50 Room Air 09/09/18 06:00 78 14 130/67 (88) 98 Nasal Cannula 2.00 09/09/18 05:00 81 16 120/68 (85) 100 Nasal Cannula 2.00 09/09/18 04:00 81 119/43 (68) 99 Nasal Cannula 2.00 09/09/18 04:00 Nasal Cannula 2.00 09/09/18 03:46 97.9 80 13 125/50 100 Nasal Cannula 1.00 09/09/18 03:00 81 25 103/54 (70) 99 Nasal Cannula 2.00 09/09/18 02:00 86 14 108/56 (73) 100 Nasal Cannula 2.00 09/09/18 02:00 98.1 85 15 108/56 100 Nasal Cannula 2.00 09/09/18 01:42 98.1 82 14 99/54 100 NIV Bilevel 2 09/09/18 01:00 84 09/09/18 01:00 84 15 108/50 (69) 100 Nasal Cannula 2.00 09/09/18 00:00 98.8 90 17 112/47 (68) 100 Nasal Cannula 2.00 09/09/18 00:00 Nasal Cannula 2.00 09/08/18 23:00 89 10 104/56 (72) 100 Nasal Cannula 2.00 09/08/18 22:00 84 14 121/43 (69) 100 Nasal Cannula 2.00 09/08/18 21:00 87 13 115/61 (79) 100 Nasal Cannula 2.00 09/08/18 20:00 98.4 81 16 102/56 (71) 100 Nasal Cannula 2.00 09/08/18 20:00 Nasal Cannula 2.00 09/08/18 19:00 82 09/08/18 19:00 82 26 120/55 (76) 95 Nasal Cannula 2.00 09/08/18 18:00 81 14 112/52 (72) 100 Nasal Cannula 2.00 09/08/18 17:00 84 15 124/63 (83) 100 Nasal Cannula 2.00 09/08/18 16:00 112 14 114/56 (75) 93 Nasal Cannula 2.00 09/08/18 16:00 98.6 112 17 116/36 93 Nasal Cannula 2.00 09/08/18 16:00 98.6 Nasal Cannula 2.00 09/08/18 15:00 Room Air 09/08/18 15:00 86 35 106/49 (68) 99 Room Air 09/08/18 14:00 79 25 124/48 (73) 98 Room Air 09/08/18 13:27 98.2 85 25 115/62 99 Room Air 09/08/18 13:13 98.7 80 26 99/48 100 Room Air 09/08/18 13:00 80 19 118/43 (68) 99 Room Air 09/08/18 13:00 89 09/08/18 12:00 85 25 124/44 (70) 99 Room Air 09/08/18 11:30 99.6 81 25 113/54 100 Room Air 09/08/18 11:30 99.6 Room Air 09/08/18 11:30 Room Air 09/08/18 11:00 85 25 106/49 (68) 99 Room Air 09/08/18 10:00 80 25 111/49 (69) 100 Room Air 09/08/18 09:15 98.9 86 26 110/41 100 Room Air 09/08/18 09:00 99.6 79 24 117/48 100 Room Air 09/08/18 09:00 83 27 117/48 (71) 99 Room Air 09/08/18 08:37 100 Room Air 09/08/18 08:15 Room Air 09/08/18 08:15 99.6 Room Air 09/08/18 08:15 99.6 85 28 121/43 100 Room Air 09/08/18 08:00 84 14 99/45 (63) 98 Room Air I & O 09/09/18 07:00 Intake Total 4630 ml Output Total 2525 ml Balance 2105 ml Height & Weight Height: 6'1.00" Weight: 321lbs. 0.0oz. 145.389911oy; 42.4 BMI Method:Stated General Appearance: No Apparent Distress, WD/WN Respiratory: Chest Non Tender, Lungs Clear, Normal Breath Sounds, No Accessory Muscle Use, No Respiratory Distress Cardiovascular: Regular Rate, Rhythm, No Edema, No Gallop, No JVD, No Murmur, Normal Peripheral Pulses Capillary Refill: Less Than 3 Seconds Peripheral Pulses: 2+ Radial Pulses (R), 2+ Radial Pulses (L) Gastrointestinal: normal bowel sounds, non tender, soft Neurologic/Psychiatric: Alert, Oriented x3, No Motor/Sensory Deficits, Normal Mood/Affect Skin: Normal Color, Warm/Dry Results Lab Laboratory Tests 09/07/18 19:55 09/08/18 01:10 09/08/18 04:45 09/08/18 12:20 09/08/18 18:45 09/09/18 00:15 09/09/18 04:40 Assessment/Plan Assessment/Plan Acute upper GIB s/p colonoscopy 6mo ago which was normal -S/p 5 units of PRBC -Protonix 40mg IV BID -Serial H&H -surgery consulted Acute gastritis hx of alcoholism Liver cirrhosis with portal HTN -If Hb continues to drop will need to add Octreotide Metabolic lactic acidosis -IVF -transfusions Obesity with probable SAVAGE -Will do PSG as out patient Will keep in ICU for at least another 24hrs. Son is at bedside all questions answered. Pt had a lot of questions and concerns regarding plan of care. Family asked if patient needs to be transferred. I don't believe there is any reason to transfer patient at this time. Will continue to follow Hb. Will do pulmonary and sleep eval as an out patient. 60min spent with patient and family discussing plan of care. Also discussed with Dr. Reveles's who is also at bedside visiting patient. REJI GAXIOLA DO Sep 09, 2018 07:38
--- NOTE | 2018-09-09 08:26 | Diagnostic Imaging Report ---
Indication: Anemia and hypotension. Comparison: 09/08/2018. Findings: Stable mild cardiomegaly. Visualized lungs are clear. No pneumothorax or pleural effusion. Normal pulmonary vasculature. Impression: Stable, negative portable chest radiograph. Dictated by: Dictated on workstation # [id number]
[2018-09-09] MEDS: SPIRONOLACTONE 25 MG (ALDACTONE) TAB PO SCH (08:52)
[2018-09-09] MEDS: PANTOPRAZOLE 40 MG (PROTONIX) VIAL IV SCH ×2 (08:52→20:38)
--- NOTE | 2018-09-09 09:02 | Consultation-Cardiology ---
HPI-Cardiology Cardiology Consultation Date of Consultation 09/09/18 Date of Admission Time Seen by Provider: 08:58 Indication: Syncope HPI 63 years old gentleman with history of hypertension, COPD, started having dizziness and lightheadedness then resulted in syncope, came into the emergency room and noted to have severe anemia, received blood transfusion and underwent endoscopy which showed peptic ulcer disease. He admitted some dyspnea on exertion, mild pedal edema, occasional palpitation, denied any chest pain. Drinks alcohol in large amount. Reported that he was tested for sleep apnea and it was negative Home Medications & Allergies Allergies: Coded Allergies: No Known Drug Allergies (Unverified , 09/07/18) Home Medication List Reviewed: Yes [id number] Hx Patient Social History Marital Status: Employed/Student: employed Alcohol Use: Regular Use Recreational Drug Use: No Smoking Status: Never a Smoker Recent Foreign Travel: Yes Recent Infectious Disease Expo: No Recent Hopitalizations: No Physical Abuse Screen: No Sexual Abuse: No Immunizations Up To Date Date of Influenza Vaccine: Jul 28, 2018 Past Medical History Past medical history as described below Family Medical History Family Medical Hx Noncontributory to his current condition Review of Systems Constitutional: see HPI, dizziness, malaise, weakness EENTM: see HPI, no symptoms reported Respiratory: see HPI; No cough; dyspnea on exertion; No hemoptysis, No orthopnea, No phlegm, No short of breath, No stridor, No wheezing, No other Cardiovascular: see HPI; No chest pain; edema; No Hx of Intervention; palpitations; No syncope, No vascular heart diseas, No other Gastrointestinal: see HPI, melena Genitourinary: no symptoms reported, see HPI Musculoskeletal: no symptoms reported, see HPI Skin: no symptoms reported, see HPI Psychiatric/Neurological: No Symptoms Reported, See HPI Reviewed Test Results Reviewed Test Results Lab Laboratory Tests Test 09/08/18 12:20 09/08/18 13:23 09/08/18 18:45 09/09/18 00:15 Range/Units Hemoglobin 6.8 *L 7.3 L 6.8 *L 13.3-17.7 G/DL Hematocrit 21 L 23 L 21 L 40-54 % Prothrombin Time 15.6 H 12.2-14.7 SEC INR Comment 1.2 0.8-1.4 Lab Scanned Report Transfusion Reaction Form [id number] White Blood Count 10.8 4.3-11.0 10^3/uL Red Blood Count 2.66 L 4.35-5.85 10^6/uL Mean Corpuscular Volume 85 80-99 FL Mean Corpuscular Hemoglobin 27 25-34 PG Mean Corpuscular Hemoglobin Concent 32 32-36 G/DL Red Cell Distribution Width 18.9 H 10.0-14.5 % Platelet Count 70 L 130-400 10^3/uL Mean Platelet Volume 11.2 H 7.4-10.4 FL Neutrophils (%) (Auto) 69 42-75 % Lymphocytes (%) (Auto) 16 12-44 % Monocytes (%) (Auto) 13 H 0-12 % Eosinophils (%) (Auto) 1 0-10 % Basophils (%) (Auto) 0 0-10 % Neutrophils # (Auto) 7.5 1.8-7.8 X 10^3 Lymphocytes # (Auto) 1.8 1.0-4.0 X 10^3 Monocytes # (Auto) 1.4 H 0.0-1.0 X 10^3 Eosinophils # (Auto) 0.1 0.0-0.3 10^3/uL Basophils # (Auto) 0.0 0.0-0.1 10^3/uL Test 09/09/18 04:40 Range/Units White Blood Count 9.2 4.3-11.0 10^3/uL Red Blood Count 2.69 L 4.35-5.85 10^6/uL Hemoglobin 7.3 L 13.3-17.7 G/DL Hematocrit 23 L 40-54 % Mean Corpuscular Volume 85 80-99 FL Mean Corpuscular Hemoglobin 27 25-34 PG Mean Corpuscular Hemoglobin Concent 32 32-36 G/DL Red Cell Distribution Width 18.5 H 10.0-14.5 % Platelet Count 60 L 130-400 10^3/uL Mean Platelet Volume 12.0 H 7.4-10.4 FL Neutrophils (%) (Auto) 60 42-75 % Lymphocytes (%) (Auto) 23 12-44 % Monocytes (%) (Auto) 15 H 0-12 % Eosinophils (%) (Auto) 2 0-10 % Basophils (%) (Auto) 0 0-10 % Neutrophils # (Auto) 5.5 1.8-7.8 X 10^3 Lymphocytes # (Auto) 2.1 1.0-4.0 X 10^3 Monocytes # (Auto) 1.4 H 0.0-1.0 X 10^3 Eosinophils # (Auto) 0.2 0.0-0.3 10^3/uL Basophils # (Auto) 0.0 0.0-0.1 10^3/uL Sodium Level 137 135-145 MMOL/L Potassium Level 4.1 3.6-5.0 MMOL/L Chloride Level 111 H 98-107 MMOL/L Carbon Dioxide Level 20 L 21-32 MMOL/L Anion Gap 6 5-14 MMOL/L Blood Urea Nitrogen 38 H 7-18 MG/DL Creatinine 0.87 0.60-1.30 MG/DL Estimat Glomerular Filtration Rate > 60 BUN/Creatinine Ratio 44 Glucose Level 118 H 70-105 MG/DL Calcium Level 7.2 L 8.5-10.1 MG/DL Phosphorus Level 2.9 2.3-4.7 MG/DL Magnesium Level 2.0 1.8-2.4 MG/DL Physical Exam Vital Signs Vital Signs - First Documented 09/07/18 09/07/18 09/09/18 20:03 23:21 01:42 Temp 97.6 Pulse 94 Resp 14 B/P (MAP) 92/43 (59) Pulse Ox 100 O2 Delivery Room Air O2 Flow Rate 2.00 FiO2 2 Capillary Refill : Less Than 3 Seconds Height, Weight, BMI Height: 6'1.00" Weight: 319lbs. 0.0oz. 144.900204cv; 42.4 BMI Method:Stated General Appearance: No Apparent Distress, WD/WN Eyes: Bilateral Eye Normal Inspection, Bilateral Eye PERRL, Bilateral Eye EOMI HEENT: PERRL/EOMI, TMs Normal, Normal ENT Inspection, Pharynx Normal Neck: Full Range of Motion, Normal Inspection, Non Tender, Supple, Carotid Bruit (Faint bruit bilaterally) Respiratory: Chest Non Tender, Lungs Clear, Normal Breath Sounds, No Accessory Muscle Use, No Respiratory Distress Cardiovascular: Regular Rate, Rhythm, No Edema, No Gallop, No JVD, No Murmur, Normal Peripheral Pulses Gastrointestinal: Normal Bowel Sounds, No Organomegaly, No Pulsatile Mass, Non Tender, Soft Back: Normal Inspection, No CVA Tenderness, No Vertebral Tenderness Extremity: Normal Capillary Refill, Normal Inspection, Normal Range of Motion, Non Tender, No Calf Tenderness, Pedal Edema (Trace edema) Neurologic/Psychiatric: Alert, Oriented x3, No Motor/Sensory Deficits, Normal Mood/Affect Skin: Normal Color, Warm/Dry Lymphatic: No Adenopathy A/P-Cardiology Admission Diagnosis Syncope Hypertension Hyperlipidemia Obesity Assessment/Plan Syncope secondary to GI bleed and severe anemia, transfused, feeling better. Peptic ulcer disease, managed by Dr. Colmenares. Hypertension, controlled, monitor blood pressure Hyperlipidemia, continue to monitor lipids. Mild peripheral edema, maintained on diuretics, planning to evaluate echocardiogram. COPD, on bronchodilator, followed and managed by Dr. Serna, was tested for sleep apnea and reported that it was negative. Obesity, BMI 42, we discussed weight loss and exercise Alcoholism, educated about limiting alcohol intake Faint bilateral carotid bruit, will evaluate carotid ultrasound as an outpatient Clinical Quality Measures DVT/VTE Risk/Contraindication: Risk Factor Score Per Nursin RFS Level Per Nursing on Admit: 3=High JEANMARIE MARCANO MD Sep 09, 2018 09:02
[2018-09-09 12:05] LABS: HEMOGLOBIN 7.8 G/DL (13.3-17.7)
--- NOTE | 2018-09-09 14:52 | Progress Note (SOAP) ---
Subjective Date Seen by a Provider: Sep 09, 2018 Time Seen by a Provider: 12:00 Subjective/Events-last exam doing better today. mild wheezing. tolerating diet. no BM's. Hb stable. Focused Exam Lactate Level 09/07/18 01:10: Lactic Acid Level 3.08*H 09/07/18 23:03: Lactic Acid Level 3.34*H 09/09/18 10:01: Lactic Acid Level 1.81 Objective Exam Vital Signs Date Time Temp Pulse Resp B/P (MAP) Pulse Ox O2 Delivery O2 Flow Rate FiO2 09/09/18 12:00 84 14 118/49 (72) 98 Room Air 09/09/18 11:00 91 11 101/52 (68) 100 Room Air 09/09/18 10:00 82 17 115/47 (69) 100 Room Air 09/09/18 09:00 92 15 114/38 (63) 96 Room Air 09/09/18 08:00 Nasal Cannula 2.00 09/09/18 08:00 84 15 138/44 (75) 100 Room Air 09/09/18 08:00 97.9 Room Air 09/09/18 07:00 78 14 125/59 (81) 98 Nasal Cannula 2.00 09/09/18 07:00 76 09/09/18 06:50 Room Air 09/09/18 06:00 78 14 130/67 (88) 98 Nasal Cannula 2.00 09/09/18 05:00 81 16 120/68 (85) 100 Nasal Cannula 2.00 09/09/18 04:00 98.1 09/09/18 04:00 81 119/43 (68) 99 Nasal Cannula 2.00 09/09/18 04:00 Nasal Cannula 2.00 09/09/18 03:46 97.9 80 13 125/50 100 Nasal Cannula 1.00 09/09/18 03:00 81 25 103/54 (70) 99 Nasal Cannula 2.00 09/09/18 02:00 86 14 108/56 (73) 100 Nasal Cannula 2.00 09/09/18 02:00 98.1 85 15 108/56 100 Nasal Cannula 2.00 09/09/18 01:42 98.1 82 14 99/54 100 NIV Bilevel 2 09/09/18 01:00 84 09/09/18 01:00 84 15 108/50 (69) 100 Nasal Cannula 2.00 09/09/18 00:00 98.8 90 17 112/47 (68) 100 Nasal Cannula 2.00 09/09/18 00:00 Nasal Cannula 2.00 09/08/18 23:00 89 10 104/56 (72) 100 Nasal Cannula 2.00 09/08/18 22:00 84 14 121/43 (69) 100 Nasal Cannula 2.00 09/08/18 21:00 87 13 115/61 (79) 100 Nasal Cannula 2.00 09/08/18 20:00 98.4 81 16 102/56 (71) 100 Nasal Cannula 2.00 09/08/18 20:00 Nasal Cannula 2.00 09/08/18 19:00 82 09/08/18 19:00 82 26 120/55 (76) 95 Nasal Cannula 2.00 09/08/18 18:00 81 14 112/52 (72) 100 Nasal Cannula 2.00 09/08/18 17:00 84 15 124/63 (83) 100 Nasal Cannula 2.00 09/08/18 16:00 112 14 114/56 (75) 93 Nasal Cannula 2.00 09/08/18 16:00 98.6 112 17 116/36 93 Nasal Cannula 2.00 09/08/18 16:00 98.6 Nasal Cannula 2.00 09/08/18 15:00 Room Air 09/08/18 15:00 86 35 106/49 (68) 99 Room Air I & O 09/09/18 07:00 Intake Total 4830 ml Output Total 2800 ml Balance 2030 ml Capillary Refill : Less Than 3 Seconds General Appearance: No Apparent Distress HEENT: PERRL/EOMI Neck: Full Range of Motion Respiratory: Chest Non Tender, Wheezing Cardiovascular: Regular Rate, Rhythm Gastrointestinal: normal bowel sounds, non tender, soft Extremity: Normal Capillary Refill Neurologic/Psychiatric: Alert, Oriented x3 Skin: Normal Color Lymphatic: No Adenopathy Results Lab Laboratory Tests 09/08/18 18:45: White Blood Count 10.8, Red Blood Count 2.66L, Hemoglobin 7.3L, Hematocrit 23L, Mean Corpuscular Volume 85, Mean Corpuscular Hemoglobin 27, Mean Corpuscular Hemoglobin Concent 32, Red Cell Distribution Width 18.9H, Platelet Count 70L, Mean Platelet Volume 11.2H, Neutrophils (%) (Auto) 69, Lymphocytes (%) (Auto) 16 , Monocytes (%) (Auto) 13H, Eosinophils (%) (Auto) 1, Basophils (%) (Auto) 0, Neutrophils # (Auto) 7.5, Lymphocytes # (Auto) 1.8, Monocytes # (Auto) 1.4H, Eosinophils # (Auto) 0.1, Basophils # (Auto) 0.0 09/09/18 00:15: Hemoglobin 6.8*L, Hematocrit 21L 09/09/18 04:40: White Blood Count 9.2, Red Blood Count 2.69L, Hemoglobin 7.3L, Hematocrit 23L, Mean Corpuscular Volume 85, Mean Corpuscular Hemoglobin 27, Mean Corpuscular Hemoglobin Concent 32, Red Cell Distribution Width 18.5H, Platelet Count 60L, Mean Platelet Volume 12.0H, Neutrophils (%) (Auto) 60, Lymphocytes (%) (Auto) 23 , Monocytes (%) (Auto) 15H, Eosinophils (%) (Auto) 2, Basophils (%) (Auto) 0, Neutrophils # (Auto) 5.5, Lymphocytes # (Auto) 2.1, Monocytes # (Auto) 1.4H, Eosinophils # (Auto) 0.2, Basophils # (Auto) 0.0, Sodium Level 137, Potassium Level 4.1, Chloride Level 111H, Carbon Dioxide Level 20L, Anion Gap 6, Blood Urea Nitrogen 38H, Creatinine 0.87, Estimat Glomerular Filtration Rate > 60, BUN /Creatinine Ratio 44, Glucose Level 118H, Calcium Level 7.2L, Phosphorus Level 2.9, Magnesium Level 2.0 09/09/18 09:20: Lab Scanned Report Transfusion Reaction Form 09/09/18 10:01: Lactic Acid Level 1.81 09/09/18 11:19: Lab Scanned Report Transfusion Reaction Form 09/09/18 11:58: Hemoglobin 7.8L, Hematocrit 24L Microbiology 09/07/18 Blood Culture - Preliminary, Resulted No growth 09/07/18 MRSA Screen - Preliminary, Resulted MRSA not isolated Assessment/Plan Assessment/Plan Assess & Plan/Chief Complaint upper GI bleed with syncopal episode. stage 1 esophageal varices no actively bleeding. child-arredondo A. hb relatively stable. do not think further transfusion necessary at this point. recommend medical management with low sodium(<2g) and water restriction(<2 liters/day). also ETOH cessation. will add protonix and spironolactone. Clinical Quality Measures DVT/VTE Risk/Contraindication: Risk Factor Score Per Nursin RFS Level Per Nursing on Admit: 3=High CHAVEZ THURMAN MD Sep 09, 2018 2:52 pm
--- NOTE | 2018-09-09 16:12 | Progress Note-Hospitalist ---
Progress Note Progress Notes/Assess & Plan Date Seen 09/09/18 Time Seen by Provider: 16:07 Assessment & Plan The patient reports he continues to have black stools. His hemoglobin is 7+. He has received a total of 5 units of packed red blood cells. His CT scan did not describe cirrhosis but did note increased portal blood flow. Upper endoscopy by Dr. Colmenares today showed esophageal varices. The patient accounts to a considerable alcohol intake mostly beer. Physical exam: He is alert and oriented. Lungs are clear to auscultation. CV is regular without murmur. Abdomen is large. There are no masses or tenderness to palpation Impression: Upper GI bleed ostensibly from esophageal varices. 2.alcohol abuse 3.persistent melena. Plan: Continue to monitor hemoglobin Focused Exam Lactate Level 09/07/18 01:10: Lactic Acid Level 3.08*H 09/07/18 23:03: Lactic Acid Level 3.34*H 09/09/18 10:01: Lactic Acid Level 1.81 BOWEN OCASIO MD Sep 09, 2018 16:12
[2018-09-09 18:18] LABS: HEMOGLOBIN 7.3 G/DL (13.3-17.7)
[2018-09-10] VITALS (9 sets, daily range): BP systolic 119–154; BP diastolic 60–88
[2018-09-10 00:05] LABS: HEMOGLOBIN 7.1 G/DL (13.3-17.7)
[2018-09-10] MEDS: NS IV 1000 ML 1,000 ML IV SCH (03:43)
[2018-09-10 04:01] LABS: BASOPHILS % (AUTO) 1 % (0-10); EOSINOPHILS # (AUTO) 0.2 10^3/uL (0.0-0.3); EOSINOPHILS % (AUTO) 3 % (0-10); HEMATOCRIT 22 % (40-54); HEMOGLOBIN 7.3 G/DL (13.3-17.7); LYMPHOCYTES # (AUTO) 1.6 X 10^3 (1.0-4.0); LYMPHOCYTES % (AUTO) 25 % (12-44); MEAN CORPUSCULAR HEMOGLOBIN 28 PG (25-34); MEAN CORPUSCULAR HGB CONC 33 G/DL (32-36); MEAN CORPUSCULAR VOLUME 86 FL (80-99); MEAN PLATELET VOLUME 11.7 FL (7.4-10.4); MONOCYTES % (AUTO) 15 % (0-12); NEUTROPHILS # (AUTO) 3.7 X 10^3 (1.8-7.8); NEUTROPHILS % (AUTO) 56 % (42-75); PLATELET COUNT 55 10^3/uL (130-400); RED CELL DISTRIBUTION WIDTH 18.8 % (10.0-14.5); WHITE BLOOD COUNT 6.5 10^3/uL (4.3-11.0)
[2018-09-10 04:21] LABS: BUN/CREATININE RATIO 29; CALCIUM 7.3 MG/DL (8.5-10.1); CARBON DIOXIDE 20 MMOL/L (21-32); CHLORIDE 109 MMOL/L (98-107); CREATININE SERUM 0.72 MG/DL (0.60-1.30); GFR ESTIMATED > 60; GLUCOSE 118 MG/DL (70-105); MAGNESIUM 1.8 MG/DL (1.8-2.4); PHOSPHORUS 2.6 MG/DL (2.3-4.7); POTASSIUM 3.9 MMOL/L (3.6-5.0); SODIUM 134 MMOL/L (135-145)
[2018-09-10] MEDS: MAGNESIUM 1 GM/100 ML IVPB 100 ML IV SCH (05:11)
[2018-09-10] MEDS: POTASSIUM CL 10MEQ/50ML IVPB 50 ML IV SCH (05:11)
[2018-09-10] MEDS: KCL 20 MEQ TAB (K-DUR) PO SCH (05:11)
[2018-09-10 06:13] LABS: HEMOGLOBIN 6.8 G/DL (13.3-17.7)
--- NOTE | 2018-09-10 07:12 | Pulmonary Progress Note ---
Subjective Time Seen by a Provider: 07:11 Subjective/Events-last exam Pt has no complaints he did have BM yesterday. Sepsis Event Evaluation Height, Weight, BMI Height: 6'1.00" Weight: 318lbs. 1.0oz. 144.603590ym; 42.4 BMI Method:Stated Focused Exam Lactate Level 09/07/18 23:03: Lactic Acid Level 3.34*H 09/09/18 10:01: Lactic Acid Level 1.81 Exam Exam Vital Signs Date Time Temp Pulse Resp B/P (MAP) Pulse Ox O2 Delivery O2 Flow Rate FiO2 09/10/18 06:00 78 97 Room Air 09/10/18 04:00 Room Air 09/10/18 04:00 79 131/62 (85) 98 Room Air 09/10/18 03:00 80 98 Room Air 09/10/18 02:00 90 95 Room Air 09/10/18 01:00 79 92 Room Air 09/10/18 01:00 83 09/10/18 00:00 Room Air 09/10/18 00:00 89 123/60 (81) 98 Room Air 09/09/18 20:47 100 Room Air 09/09/18 20:00 90 125/56 (79) 97 Room Air 09/09/18 20:00 Room Air 09/09/18 19:00 90 09/09/18 18:00 95 17 124/57 (79) 100 Room Air 09/09/18 16:38 Nasal Cannula 2.00 09/09/18 14:00 82 17 115/47 (69) 100 Room Air 09/09/18 13:00 87 09/09/18 13:00 92 15 114/38 (63) 96 Room Air 09/09/18 12:00 Nasal Cannula 2.00 09/09/18 12:00 84 14 118/49 (72) 98 Room Air 09/09/18 11:00 91 11 101/52 (68) 100 Room Air 09/09/18 10:00 82 17 115/47 (69) 100 Room Air 09/09/18 09:00 92 15 114/38 (63) 96 Room Air 09/09/18 08:00 Nasal Cannula 2.00 09/09/18 08:00 84 15 138/44 (75) 100 Room Air 09/09/18 08:00 97.9 Room Air I & O 09/10/18 07:00 Intake Total 2916 ml Output Total 2025 ml Balance 891 ml Height & Weight Height: 6'1.00" Weight: 318lbs. 1.0oz. 144.485386kc; 42.4 BMI Method:Stated General Appearance: No Apparent Distress, WD/WN HEENT: PERRL/EOMI Neck: Full Range of Motion Respiratory: Chest Non Tender, Lungs Clear, Normal Breath Sounds, No Accessory Muscle Use, No Respiratory Distress Cardiovascular: Regular Rate, Rhythm Capillary Refill: Less Than 3 Seconds Peripheral Pulses: 2+ Radial Pulses (R), 2+ Radial Pulses (L) Gastrointestinal: normal bowel sounds, non tender, soft Extremity: Normal Capillary Refill Neurologic/Psychiatric: Alert, Oriented x3 Skin: Normal Color Lymphatic: No Adenopathy Results Lab Laboratory Tests 09/08/18 12:20 09/08/18 18:45 09/09/18 00:15 09/09/18 04:40 09/09/18 11:58 09/09/18 18:10 09/09/18 23:57 09/10/18 03:40 09/10/18 05:50 Assessment/Plan Assessment/Plan Acute upper GIB s/p colonoscopy 6mo ago which was normal -S/p 5 units of PRBC -Protonix 40mg IV BID -D/C serial H&H -surgery consulted -D/C IVF -Repeat H&H and if still 6.8 or lower transfuse 1 unit - Will d/c serial H&H and IVF and just check CBC daily Acute gastritis -Protonix hx of alcoholism Liver cirrhosis with portal HTN Metabolic lactic acidosis -improved Obesity with probable SAVAGE -Will do PSG as out patient REJI GAXIOLA DO Sep 10, 2018 07:12
[2018-09-10 07:29] LABS: HEMOGLOBIN 7.2 G/DL (13.3-17.7)
[2018-09-10] MEDS: PANTOPRAZOLE 40 MG (PROTONIX) VIAL IV SCH ×2 (07:42→20:28)
[2018-09-10] MEDS: SPIRONOLACTONE 25 MG (ALDACTONE) TAB PO SCH (07:43)
--- NOTE | 2018-09-10 07:48 | Diagnostic Imaging Report ---
INDICATION: Anemia and hypotension. COMPARISON: 09/09/2018. FINDINGS: Stable mild cardiomegaly. Visualized lungs are clear. No pleural effusion or pneumothorax. IMPRESSION: No adverse development. Dictated by: Dictated on workstation # [id number]
--- NOTE | 2018-09-10 07:56 | Cardiology Progress Note ---
Subjective Date Seen by Provider: Sep 10, 2018 Time Seen by Provider: 07:54 Subjective/Events-last exam Patient is laying down in bed, feeling better, had melanotic stool yesterday morning since then no further bowel movement Review of Systems General: No Chills, No Night Sweats, No Fatigue, No Malaise, No Appetite, No Other HEENT: No Head Aches, No Visual Changes, No Eye Pain, No Ear Pain, No Dysphasia , No Sinus Congestion, No Post Nasal Drip, No Sore Throat, No Other Pulmonary: No Dyspnea, No Cough, No Pleuritic Chest Pain, No Other Cardiovascular: No: Chest Pain, Palpitations, Orthopnea, Paroxysmal Noc. Dyspnea, Edema, Lt Headedness, Other Focused Exam Lactate Level 09/07/18 23:03: Lactic Acid Level 3.34*H 09/09/18 10:01: Lactic Acid Level 1.81 Objective-Cardiology Exam Last Set of Vital Signs Vital Signs 09/09/18 09/09/18 09/09/18 09/10/18 09/10/18 09/10/18 01:42 16:38 18:00 04:00 06:00 07:47 Temp 97.1 Pulse 78 Resp 17 B/P (MAP) 131/62 (85) Pulse Ox 97 O2 Delivery Room Air O2 Flow Rate 2.00 FiO2 2 Capillary Refill : Less Than 3 Seconds I&O Intake and Output 09/10/18 00:00 Intake Total 2890 ml Output Total 2075 ml Balance 815 ml Intake Oral 2390 ml IV Total 500 ml Output Urine Total 2075 ml General: Alert, Oriented X3, Cooperative HEENT: Atraumatic, PERRLA Neck: Supple, No JVD, No Thyromegaly Lungs: Clear to Auscultation, Normal Air Movement Heart: Regular Rate, Normal S1, Normal S2, No Murmurs Abdomen: Normal Bowel Sounds, Soft, No Tenderness, No Hepatosplenomegaly, No Masses Extremities: No Clubbing, No Cyanosis, No Edema, Normal Pulses, No Tenderness/ Swelling Skin: No Rashes, No Breakdown, No Significant Lesion Neuro: Normal Gait, Normal Speech, Strength at 5/5 X4 Ext, Normal Tone, Sensation Intact Psych/Mental Status: Mental Status NL, Mood NL Results Lab Laboratory Tests 09/09/18 11:58 09/09/18 18:10 09/09/18 23:57 09/10/18 03:40 09/10/18 05:50 09/10/18 07:20 A/P-Cardiology Admission Diagnosis Syncope Hypertension Hyperlipidemia Obesity Assessment/Plan Syncope secondary to GI bleed and severe anemia, transfused, feeling better. Peptic ulcer disease, stage I esophageal paresis, gastritis, managed by Dr. Colmenares Anemia, multiple transfusion, another drop in his hemoglobin today, continue to monitor Echocardiogram showed normal LV size and function with ejection fraction 60 percent, grade 1 diastolic dysfunction, aortic valve sclerosis no aortic stenosis, mild MR, PA 30-35 mmHg, continue to monitor Hypertension, controlled, monitor blood pressure Hyperlipidemia, continue to monitor lipids. Mild peripheral edema, maintained on diuretics, planning to evaluate echocardiogram. COPD, on bronchodilator, followed and managed by Dr. Serna, was tested for sleep apnea and reported that it was negative. Obesity, BMI 42, we discussed weight loss and exercise Alcoholism, educated about limiting alcohol intake Faint bilateral carotid bruit, will evaluate carotid ultrasound as an outpatient Clinical Quality Measures DVT/VTE Risk/Contraindication: Risk Factor Score Per Nursin RFS Level Per Nursing on Admit: 3=High JEANMARIE MARCANO MD Sep 10, 2018 07:56
--- NOTE | 2018-09-10 10:54 | Progress Note-Hospitalist ---
BRENNA LIND DO 09/10/18 1054: Subjective HPI/CC On Admission Date Seen by Provider: Sep 10, 2018 Time Seen by Provider: 10:30 CC: Dizziness and Fatigue HPI: The patient is a 63 y/o male who presented to the ER at [facility] yesterday with a chief complaint of dizziness and fatigue. He states that he has been having intermittent black and tarry stools for the past 4-5 months. He also states that he occasionally has upper abdominal pain which he describes as a mild burning. He also admits to occasional heartburn. Saturday morning he awoke around 5:30 am and was very dizzy upon sitting up in bed and just felt like he couldn't get out of bed. He said that throughout the day he would become dizzy and unsteady whenever he would attempt to get up and move around. Around 7pm he passed out while trying to ambulate and his convinced him to go to the ER. He states that he had a colonoscopy 1 year ago that was unremarkable. Subjective/Events-last exam Transfusing 1 more unit this morning to total 6 units of blood and 2 units of FFP since admitted ETOH cessation counseled Patient denies pain Needs hepatology referral as outpt Holding most of home meds Review of Systems General: Fatigue Focused Exam Lactate Level 09/07/18 23:03: Lactic Acid Level 3.34*H 09/09/18 10:01: Lactic Acid Level 1.81 Objective Exam Vital Signs Vital Signs Date Time Temp Pulse Resp B/P (MAP) Pulse Ox O2 Delivery O2 Flow Rate FiO2 09/10/18 20:04 98.9 94 18 144/72 (96) 96 Room Air 09/09/18 16:38 2.00 09/09/18 01:42 2 Capillary Refill : Less Than 3 Seconds General Appearance: No Apparent Distress, WD/WN, Chronically ill, Obese Respiratory: Chest Non Tender, Lungs Clear, Normal Breath Sounds, No Accessory Muscle Use, No Respiratory Distress Cardiovascular: Regular Rate, Rhythm, No Edema, No Gallop, No JVD, No Murmur, Normal Peripheral Pulses Gastrointestinal: Normal Bowel Sounds, No Organomegaly, No Pulsatile Mass, Non Tender, Soft Neurologic/Psychiatric: Alert, Oriented x3, No Motor/Sensory Deficits, Normal Mood/Affect Skin: Normal Color, Warm/Dry Results/Procedures Lab Laboratory Tests 09/09/18 23:57 09/10/18 03:40 09/10/18 05:50 09/10/18 07:20 09/10/18 15:15 Patient resulted labs reviewed. Assessment/Plan Assessment and Plan Assess & Plan/Chief Complaint Assessment: Severe GIB requiring 6 units of blood and 2 units of FFP Cirrhosis new dx ETOH excessive use HTN Asthma Plan: Monitor hgb closely Hepatology referral once DC Diagnosis/Problems Diagnosis/Problems (1) GI bleed Status: Acute Qualifiers: GI bleed type/associated pathology: unspecified gastrointestinal hemorrhage type Qualified Codes: K92.2 - Gastrointestinal hemorrhage, unspecified (2) Acute blood loss anemia Status: Acute (3) Cirrhosis Status: Acute Qualifiers: Hepatic cirrhosis type: alcoholic cirrhosis Ascites presence: with ascites Qualified Codes: K70.31 - Alcoholic cirrhosis of liver with ascites (4) Portal hypertension Status: Acute (5) Coagulopathy Status: Acute (6) Transfusion of blood during current hospitalization Status: Acute (7) Esophageal varices Status: Acute Qualifiers: Esophageal varices type: unspecified type Esophageal varices bleeding: without bleeding Qualified Codes: I85.00 - Esophageal varices without bleeding Clinical Quality Measures DVT/VTE Risk/Contraindication: Risk Factor Score Per Nursin RFS Level Per Nursing on Admit: 3=High TAJ ROGERS MED STUDENT 09/10/18 1439: Subjective Subjective/Events-last exam Patient states that he is feeling fine this morning He reports no pain He has not had any black stools He reports no shortness of breath Objective Exam General Appearance: No Apparent Distress, WD/WN Respiratory: Chest Non Tender, Lungs Clear, Normal Breath Sounds, No Accessory Muscle Use, No Respiratory Distress Cardiovascular: Regular Rate, Rhythm, No Edema, No Gallop, No JVD, No Murmur, Normal Peripheral Pulses Gastrointestinal: Normal Bowel Sounds, Non Tender, Soft Neurologic/Psychiatric: Alert, Oriented x3, No Motor/Sensory Deficits, Normal Mood/Affect Skin: Normal Color, Warm/Dry Assessment/Plan Assessment and Plan Assess & Plan/Chief Complaint Assessment: 1) Upper GI bleed 2) Anemia Plan: 1) Continue to monitor CBC 2) Blood transfusions as needed BRENNA LIND DO Sep 10, 2018 10:54 TAJ ROGERS MED STUDENT Sep 10, 2018 14:39
[2018-09-10 15:24] LABS: HEMOGLOBIN 7.6 G/DL (13.3-17.7)
--- NOTE | 2018-09-10 16:12 | Progress Note (SOAP) ---
Subjective Date Seen by a Provider: Sep 10, 2018 Time Seen by a Provider: 15:00 Subjective/Events-last exam doing better. less dark BM's. tolerating diet. breathing status improving. Hb stable at 7.2. no clinical bleeding. Focused Exam Lactate Level 09/07/18 23:03: Lactic Acid Level 3.34*H 09/09/18 10:01: Lactic Acid Level 1.81 Objective Exam Vital Signs Date Time Temp Pulse Resp B/P (MAP) Pulse Ox O2 Delivery O2 Flow Rate FiO2 09/10/18 15:17 88 95 09/10/18 15:12 95 Room Air 09/10/18 13:00 99.4 88 18 154/88 98 Room Air 09/10/18 12:38 80 09/10/18 11:15 98.1 92 24 100 Room Air 09/10/18 09:53 97.7 83 129/77 (94) 99 Room Air 09/10/18 09:49 97.7 77 133/73 98 Room Air 09/10/18 07:59 98.8 77 18 119/61 (80) 98 Room Air 09/10/18 07:55 Room Air 09/10/18 07:47 97.1 09/10/18 07:00 82 09/10/18 06:00 78 97 Room Air 09/10/18 04:00 Room Air 09/10/18 04:00 79 131/62 (85) 98 Room Air 09/10/18 03:00 80 98 Room Air 09/10/18 02:00 90 95 Room Air 09/10/18 01:00 79 92 Room Air 09/10/18 01:00 83 09/10/18 00:00 Room Air 09/10/18 00:00 89 123/60 (81) 98 Room Air 09/09/18 20:47 100 Room Air 09/09/18 20:00 90 125/56 (79) 97 Room Air 09/09/18 20:00 Room Air 09/09/18 19:00 90 09/09/18 18:00 95 17 124/57 (79) 100 Room Air 09/09/18 16:38 Nasal Cannula 2.00 I & O 09/10/18 07:00 Intake Total 2916 ml Output Total 2025 ml Balance 891 ml Capillary Refill : Less Than 3 Seconds General Appearance: No Apparent Distress HEENT: PERRL/EOMI Neck: Full Range of Motion Respiratory: Chest Non Tender, Rhonci Cardiovascular: Regular Rate, Rhythm Gastrointestinal: normal bowel sounds, non tender, soft Extremity: Normal Capillary Refill Neurologic/Psychiatric: Alert, Oriented x3 Skin: Normal Color Lymphatic: No Adenopathy Results Lab Laboratory Tests 09/09/18 18:10: Hemoglobin 7.3L, Hematocrit 22L 09/09/18 23:57: Hemoglobin 7.1L, Hematocrit 22L 09/10/18 03:40: Hemoglobin 7.3L, Hematocrit 22L, White Blood Count 6.5, Red Blood Count 2.60L, Mean Corpuscular Volume 86, Mean Corpuscular Hemoglobin 28, Mean Corpuscular Hemoglobin Concent 33, Red Cell Distribution Width 18.8H, Platelet Count 55L, Mean Platelet Volume 11.7H, Neutrophils (%) (Auto) 56, Lymphocytes (%) (Auto) 25 , Monocytes (%) (Auto) 15H, Eosinophils (%) (Auto) 3, Basophils (%) (Auto) 1, Neutrophils # (Auto) 3.7, Lymphocytes # (Auto) 1.6, Monocytes # (Auto) 1.0, Eosinophils # (Auto) 0.2, Basophils # (Auto) 0.0, Sodium Level 134L, Potassium Level 3.9, Chloride Level 109H, Carbon Dioxide Level 20L, Anion Gap 5, Blood Urea Nitrogen 21H, Creatinine 0.72, Estimat Glomerular Filtration Rate > 60, BUN /Creatinine Ratio 29, Glucose Level 118H, Calcium Level 7.3L, Phosphorus Level 2.6, Magnesium Level 1.8 09/10/18 05:50: Hemoglobin 6.8*L, Hematocrit 21L 09/10/18 07:20: Hemoglobin 7.2L, Hematocrit 22L 09/10/18 15:15: Hemoglobin 7.6L, Hematocrit 23L Microbiology 09/07/18 Blood Culture - Preliminary, Resulted No growth 09/07/18 MRSA Screen - Preliminary, Resulted MRSA not isolated Assessment/Plan Assessment/Plan Assess & Plan/Chief Complaint upper GI bleed with syncopal episode. stage 1 esophageal varices no actively bleeding. child-arredondo A. hb relatively stable. do not think further transfusion necessary at this point. recommend medical management with low sodium(<2g) and water restriction(<2 liters/day). also ETOH cessation. will add protonix and spironolactone. transferred to 4th. continue to monitor Hb. increase ambulation and ADL's. will recommend hepatology referral as outpatient for further recommendations. Clinical Quality Measures DVT/VTE Risk/Contraindication: Risk Factor Score Per Nursin RFS Level Per Nursing on Admit: 3=High CHAVEZ THURMAN MD Sep 10, 2018 4:12 pm
[2018-09-10] MEDS: RT-ALBUTEROL SULF 2.5 MG/3 ML PRE-MIX VIAL INH SCH (19:05)
[2018-09-10] MEDS ORDERED: CALCIUM CARBONATE 500 MG (TUMS) TAB.CHEW PO PRN (20:45)
[2018-09-10] MEDS ORDERED: ALPRAZolam 0.25 MG (XANAX) TAB PO PRN (20:45)
[2018-09-11] VITALS (8 sets, daily range): BP systolic 130–194; BP diastolic 59–89
[2018-09-11 05:57] LABS: BASOPHILS % (AUTO) 0 % (0-10); EOSINOPHILS # (AUTO) 0.2 10^3/uL (0.0-0.3); EOSINOPHILS % (AUTO) 3 % (0-10); HEMATOCRIT 23 % (40-54); HEMOGLOBIN 7.5 G/DL (13.3-17.7); LYMPHOCYTES # (AUTO) 1.2 X 10^3 (1.0-4.0); LYMPHOCYTES % (AUTO) 20 % (12-44); MEAN CORPUSCULAR HEMOGLOBIN 28 PG (25-34); MEAN CORPUSCULAR HGB CONC 32 G/DL (32-36); MEAN CORPUSCULAR VOLUME 86 FL (80-99); MONOCYTES % (AUTO) 16 % (0-12); NEUTROPHILS # (AUTO) 3.6 X 10^3 (1.8-7.8); NEUTROPHILS % (AUTO) 61 % (42-75); PLATELET COUNT 58 10^3/uL (130-400); RED BLOOD COUNT 2.72 10^6/uL (4.35-5.85); RED CELL DISTRIBUTION WIDTH 18.7 % (10.0-14.5); WHITE BLOOD COUNT 5.9 10^3/uL (4.3-11.0)
[2018-09-11 06:22] LABS: ALANINE AMINOTRANSFERASE 31 U/L (0-55); ALBUMIN 2.6 GM/DL (3.2-4.5); ALKALINE PHOSPHATASE 89 U/L (40-136); BILIRUBIN,TOTAL 1.4 MG/DL (0.1-1.0); BUN/CREATININE RATIO 20; CALCIUM 7.6 MG/DL (8.5-10.1); CARBON DIOXIDE 19 MMOL/L (21-32); CHLORIDE 107 MMOL/L (98-107); CREATININE SERUM 0.66 MG/DL (0.60-1.30); GFR ESTIMATED > 60; GLUCOSE 123 MG/DL (70-105); SODIUM 133 MMOL/L (135-145); TOTAL PROTEIN 4.7 GM/DL (6.4-8.2)
--- NOTE | 2018-09-11 07:13 | Pulmonary Progress Note ---
Subjective Time Seen by a Provider: 07:12 Sepsis Event Evaluation Height, Weight, BMI Height: 6'1.00" Weight: 344lbs. 8.0oz. 156.713466wa; 42.4 BMI Method:Stated Focused Exam Lactate Level 09/09/18 10:01: Lactic Acid Level 1.81 Exam Exam Vital Signs Date Time Temp Pulse Resp B/P (MAP) Pulse Ox O2 Delivery O2 Flow Rate FiO2 09/11/18 04:00 99.9 86 18 130/61 (84) 96 Room Air 09/11/18 01:00 90 09/11/18 00:00 99.9 93 20 142/65 (90) 95 Room Air 09/10/18 20:04 98.9 94 18 144/72 (96) 96 Room Air 09/10/18 19:49 99 09/10/18 19:07 96 Room Air 09/10/18 16:00 98.8 87 20 124/60 (81) 98 Room Air 09/10/18 15:17 88 95 09/10/18 15:12 95 Room Air 09/10/18 13:00 99.4 88 18 154/88 98 Room Air 09/10/18 12:38 80 09/10/18 11:15 98.1 92 24 100 Room Air 09/10/18 09:53 97.7 83 129/77 (94) 99 Room Air 09/10/18 09:49 97.7 77 133/73 98 Room Air 09/10/18 07:59 98.8 77 18 119/61 (80) 98 Room Air 09/10/18 07:55 Room Air 09/10/18 07:47 97.1 I & O 09/11/18 07:00 Intake Total 4144 ml Output Total 2880 ml Balance 1264 ml Height & Weight Height: 6'1.00" Weight: 344lbs. 8.0oz. 156.900702to; 42.4 BMI Method:Stated General Appearance: No Apparent Distress, WD/WN HEENT: PERRL/EOMI Neck: Full Range of Motion Respiratory: Chest Non Tender, Lungs Clear, Normal Breath Sounds, No Accessory Muscle Use, No Respiratory Distress Cardiovascular: Regular Rate, Rhythm Capillary Refill: Less Than 3 Seconds Peripheral Pulses: 2+ Radial Pulses (R), 2+ Radial Pulses (L) Gastrointestinal: normal bowel sounds, non tender, soft Extremity: Normal Capillary Refill Neurologic/Psychiatric: Alert, Oriented x3 Skin: Normal Color Lymphatic: No Adenopathy Results Lab Laboratory Tests 09/09/18 11:58 09/09/18 18:10 09/09/18 23:57 09/10/18 03:40 09/10/18 05:50 09/10/18 07:20 09/10/18 15:15 09/11/18 05:20 Assessment/Plan Assessment/Plan Acute upper GIB s/p colonoscopy 6mo ago which was normal -Hb appears stable now -S/p 5 units of PRBC -Protonix 40mg IV BID -surgery consulted Tm 99.9 -CXR is clear -Check UA Acute gastritis -Protonix hx of alcoholism Liver cirrhosis with portal HTN Metabolic lactic acidosis -improved Obesity with probable SAVAGE -Will do PSG as out patient REJI GAXIOLA DO Sep 11, 2018 07:13
[2018-09-11] MEDS: RT-ALBUTEROL SULF 2.5 MG/3 ML PRE-MIX VIAL INH SCH ×2 (07:27→20:16)
[2018-09-11] MEDS: RT-ADVAIR HFA 115/21 MCG PER PUFF IH SCH (07:27)
[2018-09-11] MEDS: PANTOPRAZOLE 40 MG (PROTONIX) VIAL IV SCH ×3 (08:05→21:41)
[2018-09-11] MEDS: SPIRONOLACTONE 25 MG (ALDACTONE) TAB PO SCH ×2 (08:06→20:16)
--- NOTE | 2018-09-11 08:19 | Cardiology Progress Note ---
Subjective Date Seen by Provider: Sep 11, 2018 Time Seen by Provider: 08:16 Subjective/Events-last exam Patient is sitting up in bed. Complaining of increased edema and mild dyspnea. Denies any chest pain or palpitations. Review of Systems General: No Night Sweats, No Fatigue, No Malaise HEENT: No Visual Changes, No Dysphasia Pulmonary: No Dyspnea, No Cough Cardiovascular: Edema; No: Chest Pain, Palpitations Gastrointestinal: No: Nausea, Vomiting, Abdominal Pain Genitourinary: No Dysuria, No Frequency Musculoskeletal: No: neck pain, back pain Neurological: No: Weakness, Numbness Focused Exam Lactate Level 09/09/18 10:01: Lactic Acid Level 1.81 Objective-Cardiology Exam Last Set of Vital Signs Vital Signs 09/09/18 09/09/18 09/11/18 09/11/18 09/11/18 01:42 16:38 04:00 07:00 07:27 Temp 99.9 Pulse 85 Resp 18 B/P (MAP) 130/61 (84) Pulse Ox 94 O2 Delivery Room Air O2 Flow Rate 2.00 FiO2 2 Capillary Refill : Less Than 3 Seconds I&O Intake and Output 09/11/18 00:00 Intake Total 3966 ml Output Total 975 ml Balance 2991 ml Intake Oral 2466 ml IV Total 1500 ml Output Urine Total 975 ml # Voids 3 # Bowel Movements 2 General: Alert, Oriented X3, Cooperative HEENT: Atraumatic, PERRLA Neck: Supple, No JVD, No Thyromegaly Lungs: Clear to Auscultation, Normal Air Movement Heart: Regular Rate, Normal S1, Normal S2, No Murmurs Abdomen: Normal Bowel Sounds, Soft, No Tenderness, No Hepatosplenomegaly, No Masses Extremities: No Clubbing, No Cyanosis, Normal Pulses, No Tenderness/Swelling, Other (+1-2 edema BLE) Skin: No Rashes, No Breakdown, No Significant Lesion Neuro: Normal Gait, Normal Speech, Strength at 5/5 X4 Ext, Normal Tone, Sensation Intact Psych/Mental Status: Mental Status NL, Mood NL Results Lab Laboratory Tests 09/10/18 15:15 09/11/18 05:20 A/P-Cardiology Admission Diagnosis Syncope Hypertension Hyperlipidemia Obesity Assessment/Plan Syncope secondary to GI bleed and severe anemia, transfused, feeling better. Peptic ulcer disease, stage I esophageal paresis, gastritis, managed by Dr. Colmenares Anemia, multiple transfusion, continue to monitor H/H closely Echocardiogram showed normal LV size and function with ejection fraction 60 percent, grade 1 diastolic dysfunction, aortic valve sclerosis no aortic stenosis, mild MR, PA 30-35 mmHg, continue to monitor Hypertension, controlled, monitor blood pressure Hyperlipidemia, continue to monitor lipids. Peripheral edema, continue to diurese. 2D Echo done revealed normal EF. COPD, on bronchodilator, followed and managed by Dr. Serna, was tested for sleep apnea and reported that it was negative. Obesity, BMI 42, we discussed weight loss and exercise Alcoholism, educated about limiting alcohol intake Faint bilateral carotid bruit, will evaluate carotid ultrasound as an outpatient Clinical Quality Measures DVT/VTE Risk/Contraindication: Risk Factor Score Per Nursin RFS Level Per Nursing on Admit: 3=High GILES CROWE Sep 11, 2018 08:19
[2018-09-11 08:35] LABS: BILIRUBIN,URINE NEGATIVE (NEGATIVE); CLARITY,URINE CLEAR; COLOR,URINE YELLOW; GLUCOSE, URINE (UA) NEGATIVE (NEGATIVE); KETONES,URINE NEGATIVE (NEGATIVE); LEUKOCYTE ESTERASE ,URINE NEGATIVE (NEGATIVE); NITRITE,URINE NEGATIVE (NEGATIVE); PH,URINE 6 (5-9); PROTEIN,URINE NEGATIVE (NEGATIVE); UROBILINOGEN,URINE NORMAL (NORMAL)
[2018-09-11 08:37] LABS: BACTERIA,URINE TRACE /HPF; SQUAMOUS EPITHELIAL CELL,UR RARE /HPF
--- NOTE | 2018-09-11 10:07 | Progress Note-Hospitalist ---
Subjective HPI/CC On Admission Date Seen by Provider: Sep 11, 2018 Time Seen by Provider: 10:00 CC: Dizziness and Fatigue HPI: The patient is a 63 y/o male who presented to the ER at [facility] yesterday with a chief complaint of dizziness and fatigue. He states that he has been having intermittent black and tarry stools for the past 4-5 months. He also states that he occasionally has upper abdominal pain which he describes as a mild burning. He also admits to occasional heartburn. Saturday morning he awoke around 5:30 am and was very dizzy upon sitting up in bed and just felt like he couldn't get out of bed. He said that throughout the day he would become dizzy and unsteady whenever he would attempt to get up and move around. Around 7pm he passed out while trying to ambulate and his convinced him to go to the ER. He states that he had a colonoscopy 1 year ago that was unremarkable. Subjective/Events-last exam Patient doing much better Hemoglobin is stable at 7.5 Had a bowel movement today and there was no dark tarry stools now and it's only brown Feels volume overloaded so will initiate IV Lasix Lost IV so will place midline Up by about 35 pounds of fluid due to fluids given in ICU and 6 units of blood Review of Systems General: Fatigue Cardiovascular: Edema Focused Exam Lactate Level 09/09/18 10:01: Lactic Acid Level 1.81 Objective Exam Vital Signs Vital Signs Date Time Temp Pulse Resp B/P (MAP) Pulse Ox O2 Delivery O2 Flow Rate FiO2 09/11/18 08:00 98.5 86 16 132/59 (83) 97 Room Air 09/09/18 16:38 2.00 09/09/18 01:42 2 Capillary Refill : Less Than 3 Seconds General Appearance: No Apparent Distress, WD/WN, Chronically ill, Obese Respiratory: Chest Non Tender, Lungs Clear, Normal Breath Sounds, No Accessory Muscle Use, No Respiratory Distress Cardiovascular: Regular Rate, Rhythm, No Edema, No Gallop, No JVD, No Murmur, Normal Peripheral Pulses Extremity: Pedal Edema Neurologic/Psychiatric: Alert, Oriented x3, No Motor/Sensory Deficits, Normal Mood/Affect Results/Procedures Lab Laboratory Tests 09/10/18 15:15 09/11/18 05:20 Patient resulted labs reviewed. Assessment/Plan Assessment and Plan Assess & Plan/Chief Complaint Assessment: Severe GIB requiring 6 units of blood and 2 units of FFP Acute volume overload with edema initiating IV Lasix Cirrhosis new dx ETOH excessive use HTN Asthma Poor venous access Plan: Monitor hgb closely Hepatology referral once DC IV Lasix Midline Alcohol cessation Diagnosis/Problems Diagnosis/Problems (1) GI bleed Status: Resolved Qualifiers: GI bleed type/associated pathology: unspecified gastrointestinal hemorrhage type Qualified Codes: K92.2 - Gastrointestinal hemorrhage, unspecified Resolution Date/Time: 09/11/18 @ 11:34 (2) Acute blood loss anemia Status: Acute (3) Cirrhosis Status: Acute Qualifiers: Hepatic cirrhosis type: alcoholic cirrhosis Ascites presence: with ascites Qualified Codes: K70.31 - Alcoholic cirrhosis of liver with ascites (4) Portal hypertension Status: Acute (5) Coagulopathy Status: Acute (6) Transfusion of blood during current hospitalization Status: Acute (7) Esophageal varices Status: Acute Qualifiers: Esophageal varices type: unspecified type Esophageal varices bleeding: without bleeding Qualified Codes: I85.00 - Esophageal varices without bleeding (8) Volume overload Status: Acute Qualifiers: Hypervolemia type: unspecified Qualified Codes: E87.70 - Fluid overload, unspecified (9) Edema Status: Acute Qualifiers: Edema type: unspecified Qualified Codes: R60.9 - Edema, unspecified Clinical Quality Measures DVT/VTE Risk/Contraindication: Risk Factor Score Per Nursin RFS Level Per Nursing on Admit: 3=High BRENNA LIND DO Sep 11, 2018 10:07
[2018-09-11] MEDS ORDERED: FUROSEMIDE 40 MG/4 ML INJ (LASIX) IVP NR (10:15)
[2018-09-11] MEDS ORDERED: KCL 10 MEQ TAB (MICRO K) PO NR (10:15)
--- NOTE | 2018-09-11 11:57 | Cardiology Progress Note ---
Subjective Date Seen by Provider: Sep 11, 2018 Time Seen by Provider: 11:55 Subjective/Events-last exam Patient is laying down in bed, feeling better, denied any chest pain or shortness of breath. Focused Exam Lactate Level 09/09/18 10:01: Lactic Acid Level 1.81 Objective-Cardiology Exam Last Set of Vital Signs Vital Signs 09/09/18 09/09/18 09/11/18 01:42 16:38 08:00 Temp 98.5 Pulse 86 Resp 16 B/P (MAP) 132/59 (83) Pulse Ox 97 O2 Delivery Room Air O2 Flow Rate 2.00 FiO2 2 Capillary Refill : Less Than 3 Seconds I&O Intake and Output 09/11/18 00:00 Intake Total 3966 ml Output Total 975 ml Balance 2991 ml Intake Oral 2466 ml IV Total 1500 ml Output Urine Total 975 ml # Voids 3 # Bowel Movements 2 General: Alert, Oriented X3, Cooperative HEENT: Atraumatic, PERRLA Neck: Supple, No JVD, No Thyromegaly Lungs: Clear to Auscultation, Normal Air Movement Heart: Regular Rate, Normal S1, Normal S2, No Murmurs Abdomen: Normal Bowel Sounds, Soft, No Tenderness, No Hepatosplenomegaly, No Masses Extremities: No Clubbing, No Cyanosis, Normal Pulses, No Tenderness/Swelling, Other (+1-2 edema BLE) Skin: No Rashes, No Breakdown, No Significant Lesion Neuro: Normal Gait, Normal Speech, Strength at 5/5 X4 Ext, Normal Tone, Sensation Intact Psych/Mental Status: Mental Status NL, Mood NL Results Lab Laboratory Tests 09/10/18 15:15 09/11/18 05:20 A/P-Cardiology Admission Diagnosis Syncope Hypertension Hyperlipidemia Obesity Assessment/Plan Syncope secondary to GI bleed and severe anemia, transfused, feeling better. Peptic ulcer disease, stage I esophageal varesis, gastritis, managed by Dr. Colmenares Anemia, multiple transfusion, continue to monitor H/H closely Echocardiogram showed normal LV size and function with ejection fraction 60 percent, grade 1 diastolic dysfunction, aortic valve sclerosis no aortic stenosis, mild MR, PA 30-35 mmHg, continue to monitor Hypertension, controlled, monitor blood pressure Hyperlipidemia, continue to monitor lipids. Peripheral edema, continue to diurese. 2D Echo done revealed normal EF. COPD, on bronchodilator, followed and managed by Dr. Serna, was tested for sleep apnea and reported that it was negative. Obesity, BMI 42, we discussed weight loss and exercise Alcoholism, educated about limiting alcohol intake Faint bilateral carotid bruit, will evaluate carotid ultrasound as an outpatient Clinical Quality Measures DVT/VTE Risk/Contraindication: Risk Factor Score Per Nursin RFS Level Per Nursing on Admit: 3=High JEANMARIE MARCANO MD Sep 11, 2018 11:57 am
--- NOTE | 2018-09-11 17:37 | Progress Note (SOAP) ---
Subjective Date Seen by a Provider: Sep 11, 2018 Time Seen by a Provider: 17:30 Subjective/Events-last exam doing better. tolerating diet. having brown brown BM's, no clinical bleeding. breathing better. Focused Exam Lactate Level 09/09/18 10:01: Lactic Acid Level 1.81 Objective Exam Vital Signs Date Time Temp Pulse Resp B/P (MAP) Pulse Ox O2 Delivery O2 Flow Rate FiO2 09/11/18 17:09 146/61 (89) 09/11/18 17:01 183/79 (113) 09/11/18 16:05 99.7 90 18 194/89 (124) 98 Room Air 09/11/18 13:00 90 09/11/18 12:31 98.5 92 20 158/77 (104) 98 Room Air 09/11/18 12:30 91 20 99 Room Air 09/11/18 08:00 98.5 86 16 132/59 (83) 97 Room Air 09/11/18 07:27 94 Room Air 09/11/18 07:00 85 09/11/18 04:00 99.9 86 18 130/61 (84) 96 Room Air 09/11/18 01:00 90 09/11/18 00:00 99.9 93 20 142/65 (90) 95 Room Air 09/10/18 20:04 98.9 94 18 144/72 (96) 96 Room Air 09/10/18 19:49 99 09/10/18 19:07 96 Room Air I & O 09/11/18 07:00 Intake Total 4144 ml Output Total 2880 ml Balance 1264 ml Capillary Refill : Less Than 3 Seconds General Appearance: No Apparent Distress HEENT: PERRL/EOMI Neck: Full Range of Motion Respiratory: Chest Non Tender, Normal Breath Sounds, Wheezing Cardiovascular: Regular Rate, Rhythm Gastrointestinal: normal bowel sounds, non tender, soft Extremity: Normal Capillary Refill Neurologic/Psychiatric: Alert, Oriented x3 Skin: Normal Color Lymphatic: No Adenopathy Results Lab Laboratory Tests 09/11/18 05:20: White Blood Count 5.9, Red Blood Count 2.72L, Hemoglobin 7.5L, Hematocrit 23L, Mean Corpuscular Volume 86, Mean Corpuscular Hemoglobin 28, Mean Corpuscular Hemoglobin Concent 32, Red Cell Distribution Width 18.7H, Platelet Count 58L, Mean Platelet Volume , Neutrophils (%) (Auto) 61, Lymphocytes (%) (Auto) 20, Monocytes (%) (Auto) 16H, Eosinophils (%) (Auto) 3, Basophils (%) (Auto) 0, Neutrophils # (Auto) 3.6, Lymphocytes # (Auto) 1.2, Monocytes # (Auto) 1.0, Eosinophils # (Auto) 0.2, Basophils # (Auto) 0.0, Sodium Level 133L, Potassium Level 4.0, Chloride Level 107, Carbon Dioxide Level 19L, Anion Gap 7, Blood Urea Nitrogen 13, Creatinine 0.66, Estimat Glomerular Filtration Rate > 60, BUN/ Creatinine Ratio 20, Glucose Level 123H, Calcium Level 7.6L, Corrected Calcium 8.7, Total Bilirubin 1.4H, Aspartate Amino Transf (AST/SGOT) 46H, Alanine Aminotransferase (ALT/SGPT) 31, Alkaline Phosphatase 89, Total Protein 4.7L, Albumin 2.6L 09/11/18 07:50: Urine Color YELLOW, Urine Clarity CLEAR, Urine pH 6, Urine Specific [place] 1.020, Urine Protein NEGATIVE, Urine Glucose (UA) NEGATIVE, Urine Ketones NEGATIVE, Urine Nitrite NEGATIVE, Urine Bilirubin NEGATIVE, Urine Urobilinogen NORMAL, Urine Leukocyte Esterase NEGATIVE, Urine RBC (Auto) NEGATIVE, Urine RBC NONE, Urine WBC 2-5, Urine Squamous Epithelial Cells RARE, Urine Crystals NONE, Urine Bacteria TRACE, Urine Casts NONE, Urine Mucus SMALLH, Urine Culture Indicated NO 09/11/18 12:13: Lab Scanned Report Transfusion Reaction Form Microbiology 09/07/18 Blood Culture - Preliminary, Resulted No growth 09/07/18 MRSA Screen - Preliminary, Resulted MRSA not isolated Assessment/Plan Assessment/Plan Assess & Plan/Chief Complaint upper GI bleed with syncopal episode. stage 1 esophageal varices no actively bleeding. child-arredondo A. hb relatively stable. do not think further transfusion necessary at this point. recommend medical management with low sodium(<2g) and water restriction(<2 liters/day). also ETOH cessation. will add protonix and spironolactone. transferred to [facility]. continue to monitor Hb. increase ambulation and ADL's. will recommend hepatology referral as outpatient for further recommendations. Clinical Quality Measures DVT/VTE Risk/Contraindication: Risk Factor Score Per Nursin RFS Level Per Nursing on Admit: 3=High KIDO,TAKAAKI MD Sep 11, 2018 5:37 pm
[2018-09-12 00:11] VITALS: BP 127/59
[2018-09-12] MEDS ORDERED: ACETAMINOPHEN 325 MG TABLET ONE (00:18)
[2018-09-12] MEDS: ACETAMINOPHEN 500 MG TAB (TYLENOL) PO PRN ×2 (00:21→10:30)
[2018-09-12 04:17] VITALS: BP 120/58
[2018-09-12 06:02] LABS: BASOPHILS % (AUTO) 0 % (0-10); EOSINOPHILS # (AUTO) 0.2 10^3/uL (0.0-0.3); EOSINOPHILS % (AUTO) 3 % (0-10); HEMATOCRIT 24 % (40-54); HEMOGLOBIN 7.7 G/DL (13.3-17.7); LYMPHOCYTES # (AUTO) 1.2 X 10^3 (1.0-4.0); LYMPHOCYTES % (AUTO) 16 % (12-44); MEAN CORPUSCULAR HEMOGLOBIN 28 PG (25-34); MEAN CORPUSCULAR HGB CONC 33 G/DL (32-36); MEAN CORPUSCULAR VOLUME 86 FL (80-99); MEAN PLATELET VOLUME 11.7 FL (7.4-10.4); MONOCYTES # (AUTO) 1.3 X 10^3 (0.0-1.0); MONOCYTES % (AUTO) 17 % (0-12); NEUTROPHILS # (AUTO) 4.9 X 10^3 (1.8-7.8); NEUTROPHILS % (AUTO) 64 % (42-75); PLATELET COUNT 68 10^3/uL (130-400); RED BLOOD COUNT 2.74 10^6/uL (4.35-5.85); RED CELL DISTRIBUTION WIDTH 19.1 % (10.0-14.5); WHITE BLOOD COUNT 7.6 10^3/uL (4.3-11.0)
[2018-09-12 06:18] LABS: ALANINE AMINOTRANSFERASE 33 U/L (0-55); ALBUMIN 2.7 GM/DL (3.2-4.5); ALKALINE PHOSPHATASE 90 U/L (40-136); BILIRUBIN,TOTAL 1.2 MG/DL (0.1-1.0); BUN/CREATININE RATIO 15; CALCIUM 7.9 MG/DL (8.5-10.1); CARBON DIOXIDE 22 MMOL/L (21-32); CHLORIDE 104 MMOL/L (98-107); CREATININE SERUM 0.72 MG/DL (0.60-1.30); GFR ESTIMATED > 60; GLUCOSE 121 MG/DL (70-105); POTASSIUM 3.9 MMOL/L (3.6-5.0); SODIUM 133 MMOL/L (135-145); TOTAL PROTEIN 5.1 GM/DL (6.4-8.2)
[2018-09-12] MEDS: KCL 10 MEQ TAB (MICRO K) PO SCH (06:38)
--- NOTE | 2018-09-12 07:16 | Cardiology Progress Note ---
Subjective Date Seen by Provider: Sep 12, 2018 Time Seen by Provider: 07:15 Subjective/Events-last exam Patient is laying down in bed, having mild shortness of breath and wheezing. No chest pain. Review of Systems General: No Chills, No Night Sweats, No Fatigue, No Malaise, No Appetite, No Other HEENT: No Head Aches, No Visual Changes, No Eye Pain, No Ear Pain, No Dysphasia , No Sinus Congestion, No Post Nasal Drip, No Sore Throat, No Other Pulmonary: No Dyspnea, No Cough, No Pleuritic Chest Pain, No Other Cardiovascular: No: Chest Pain, Palpitations, Orthopnea, Paroxysmal Noc. Dyspnea, Edema, Lt Headedness, Other Focused Exam Lactate Level 09/09/18 10:01: Lactic Acid Level 1.81 Objective-Cardiology Exam Last Set of Vital Signs Vital Signs 09/09/18 09/09/18 09/12/18 01:42 16:38 04:17 Temp 98.5 Pulse 94 Resp 20 B/P (MAP) 120/58 (78) Pulse Ox 97 O2 Delivery Room Air O2 Flow Rate 2.00 FiO2 2 Capillary Refill : Less Than 3 Seconds I&O Intake and Output 09/11/18 23:59 Intake Total 3082 ml Output Total 5180 ml Balance -2098 ml Intake Oral 3082 ml Output Urine Total 5180 ml # Voids 7 # Bowel Movements 2 General: Alert, Oriented X3, Cooperative HEENT: Atraumatic, PERRLA Neck: Supple, No JVD, No Thyromegaly Lungs: Normal Air Movement, Other (Wheezing) Heart: Regular Rate, Normal S1, Normal S2, No Murmurs Abdomen: Normal Bowel Sounds, Soft, No Tenderness, No Hepatosplenomegaly, No Masses Extremities: No Clubbing, No Cyanosis, Normal Pulses, No Tenderness/Swelling, Other (+1-2 edema BLE) Skin: No Rashes, No Breakdown, No Significant Lesion Neuro: Normal Gait, Normal Speech, Strength at 5/5 X4 Ext, Normal Tone, Sensation Intact Psych/Mental Status: Mental Status NL, Mood NL Results Lab Laboratory Tests 09/12/18 05:22 A/P-Cardiology Admission Diagnosis Syncope Hypertension Hyperlipidemia Obesity Assessment/Plan Syncope secondary to GI bleed and severe anemia, transfused, feeling better. Peptic ulcer disease, stage I esophageal varesis, gastritis, managed by Dr. Colmenares Anemia, multiple transfusion, continue to monitor H/H closely Shortness of breath, responded to Lasix yesterday, scheduled to receive additional dose today. Continue to monitor Echocardiogram showed normal LV size and function with ejection fraction 60 percent, grade 1 diastolic dysfunction, aortic valve sclerosis no aortic stenosis, mild MR, PA 30-35 mmHg, continue to monitor Hypertension, controlled, monitor blood pressure Hyperlipidemia, continue to monitor lipids. Peripheral edema, continue to diurese. 2D Echo done revealed normal EF. COPD, on bronchodilator, followed and managed by Dr. Serna, was tested for sleep apnea and reported that it was negative. Obesity, BMI 42, we discussed weight loss and exercise Alcoholism, educated about limiting alcohol intake Faint bilateral carotid bruit, will evaluate carotid ultrasound as an outpatient Clinical Quality Measures DVT/VTE Risk/Contraindication: Risk Factor Score Per Nursin RFS Level Per Nursing on Admit: 3=High JEANMARIE MARCANO MD Sep 12, 2018 07:16
[2018-09-12] MEDS: RT-ALBUTEROL SULF 2.5 MG/3 ML PRE-MIX VIAL INH PRN ×2 (07:59→19:40)
[2018-09-12] MEDS: RT-ADVAIR HFA 115/21 MCG PER PUFF IH SCH (07:59)
[2018-09-12] MEDS: UMECLIDINIUM BROMIDE (INCRUSE ELLIPTA) 7'S IH SCH (07:59)
--- NOTE | 2018-09-12 07:59 | Pulmonary Progress Note ---
Subjective Time Seen by a Provider: 07:56 Subjective/Events-last exam Pt complains of SOB however he is not requiring much oxygen Sepsis Event Evaluation Height, Weight, BMI Height: 6'1.00" Weight: 342lbs. 11.2oz. 155.483013vt; 42.4 BMI Method:Stated Focused Exam Lactate Level 09/09/18 10:01: Lactic Acid Level 1.81 Exam Exam Vital Signs Date Time Temp Pulse Resp B/P (MAP) Pulse Ox O2 Delivery O2 Flow Rate FiO2 09/12/18 04:17 98.5 94 20 120/58 (78) 97 Room Air 09/12/18 01:00 90 09/12/18 00:51 99.8 09/12/18 00:45 99.8 09/12/18 00:21 100.5 09/12/18 00:11 100.5 94 18 127/59 (81) 95 Room Air 09/11/18 21:00 97 Room Air 09/11/18 20:16 97 Room Air 09/11/18 20:07 100.2 98 18 146/63 (90) 96 Room Air 09/11/18 19:00 98 09/11/18 17:09 146/61 (89) 09/11/18 17:01 183/79 (113) 09/11/18 16:05 99.7 90 18 194/89 (124) 98 Room Air 09/11/18 13:00 90 09/11/18 12:31 98.5 92 20 158/77 (104) 98 Room Air 09/11/18 12:30 91 20 99 Room Air 09/11/18 10:00 Room Air 09/11/18 08:00 98.5 86 16 132/59 (83) 97 Room Air I & O 09/12/18 07:00 Intake Total 3598 ml Output Total 6550 ml Balance -2952 ml Height & Weight Height: 6'1.00" Weight: 342lbs. 11.2oz. 155.082853nt; 42.4 BMI Method:Stated General Appearance: No Apparent Distress, Anxious HEENT: PERRL/EOMI Neck: Full Range of Motion Respiratory: Chest Non Tender, Normal Breath Sounds, Wheezing Cardiovascular: Regular Rate, Rhythm Capillary Refill: Less Than 3 Seconds Peripheral Pulses: 2+ Radial Pulses (R), 2+ Radial Pulses (L) Gastrointestinal: normal bowel sounds, non tender, soft Extremity: Normal Capillary Refill Neurologic/Psychiatric: Alert, Oriented x3 Skin: Normal Color Lymphatic: No Adenopathy Results Lab Laboratory Tests 09/10/18 15:15 09/11/18 05:20 09/12/18 05:22 Assessment/Plan Assessment/Plan Acute upper GIB s/p colonoscopy 6mo ago which was normal -Hb appears stable -S/p 5 units of PRBC -Protonix 40mg IV BID -surgery consulted Tm 99.9 -CXR is clear -Check UA Acute gastritis -Protonix hx of alcoholism Liver cirrhosis with portal HTN Metabolic lactic acidosis -improved Obesity with probable SAVAGE -Will do PSG as out patient REJI GAXIOLA DO Sep 12, 2018 07:58
[2018-09-12 08:00] VITALS: BP 153/67
[2018-09-12] MEDS ORDERED: RT-ALBUTEROL SULF 2.5 MG/3 ML PRE-MIX VIAL INH SCH (08:00)
[2018-09-12] MEDS: SPIRONOLACTONE 25 MG (ALDACTONE) TAB PO SCH ×2 (09:32→20:44)
[2018-09-12] MEDS: FUROSEMIDE 40 MG/4 ML INJ (LASIX) IVP SCH (09:32)
[2018-09-12] MEDS: PANTOPRAZOLE 40 MG (PROTONIX) TAB PO SCH ×2 (10:06→17:13)
[2018-09-12 12:00] VITALS: BP 152/70
--- NOTE | 2018-09-12 12:04 | Progress Note-Hospitalist ---
Subjective HPI/CC On Admission Date Seen by Provider: Sep 12, 2018 Time Seen by Provider: 11:30 CC: Dizziness and Fatigue HPI: The patient is a 63 y/o male who presented to the ER at [facility] yesterday with a chief complaint of dizziness and fatigue. He states that he has been having intermittent black and tarry stools for the past 4-5 months. He also states that he occasionally has upper abdominal pain which he describes as a mild burning. He also admits to occasional heartburn. Saturday morning he awoke around 5:30 am and was very dizzy upon sitting up in bed and just felt like he couldn't get out of bed. He said that throughout the day he would become dizzy and unsteady whenever he would attempt to get up and move around. Around 7pm he passed out while trying to ambulate and his convinced him to go to the ER. He states that he had a colonoscopy 1 year ago that was unremarkable. Subjective/Events-last exam Patient feels better and diuresis is really helping him Denies pain Nosebleed from right nostril not severe UOP increased with Lasix IV Review of Systems General: Fatigue Objective Exam Vital Signs Vital Signs Date Time Temp Pulse Resp B/P (MAP) Pulse Ox O2 Delivery O2 Flow Rate FiO2 09/12/18 16:07 100.0 96 20 129/61 (83) 100 Room Air 09/09/18 16:38 2.00 09/09/18 01:42 2 Capillary Refill : Less Than 3 Seconds General Appearance: No Apparent Distress, WD/WN, Chronically ill, Obese Respiratory: Chest Non Tender, Lungs Clear, Normal Breath Sounds, No Accessory Muscle Use, No Respiratory Distress Cardiovascular: Regular Rate, Rhythm, No Edema, No Gallop, No JVD, No Murmur, Normal Peripheral Pulses Neurologic/Psychiatric: Alert, Oriented x3, No Motor/Sensory Deficits, Normal Mood/Affect Results/Procedures Lab Laboratory Tests 09/12/18 05:22 Patient resulted labs reviewed. Assessment/Plan Assessment and Plan Assess & Plan/Chief Complaint Assessment: Severe GIB requiring 6 units of blood and 2 units of FFP Acute volume overload with edema initiating IV Lasix Cirrhosis new dx ETOH excessive use HTN Asthma Poor venous access Plan: Monitor hgb closely Hepatology referral once DC IV Lasix Midline Alcohol cessation Diagnosis/Problems Diagnosis/Problems (1) GI bleed Status: Resolved Qualifiers: GI bleed type/associated pathology: unspecified gastrointestinal hemorrhage type Qualified Codes: K92.2 - Gastrointestinal hemorrhage, unspecified Resolution Date/Time: 09/11/18 @ 11:34 (2) Acute blood loss anemia Status: Acute (3) Cirrhosis Status: Acute Qualifiers: Hepatic cirrhosis type: alcoholic cirrhosis Ascites presence: with ascites Qualified Codes: K70.31 - Alcoholic cirrhosis of liver with ascites (4) Portal hypertension Status: Acute (5) Coagulopathy Status: Acute (6) Transfusion of blood during current hospitalization Status: Acute (7) Esophageal varices Status: Acute Qualifiers: Esophageal varices type: unspecified type Esophageal varices bleeding: without bleeding Qualified Codes: I85.00 - Esophageal varices without bleeding (8) Volume overload Status: Acute Qualifiers: Hypervolemia type: unspecified Qualified Codes: E87.70 - Fluid overload, unspecified (9) Edema Status: Acute Qualifiers: Edema type: unspecified Qualified Codes: R60.9 - Edema, unspecified Clinical Quality Measures DVT/VTE Risk/Contraindication: Risk Factor Score Per Nursin RFS Level Per Nursing on Admit: 3=High BRENNA LIND DO Sep 12, 2018 12:04
[2018-09-12 16:07] VITALS: BP 129/61
--- NOTE | 2018-09-12 20:05 | Progress Note (SOAP) ---
Subjective Date Seen by a Provider: Sep 12, 2018 Time Seen by a Provider: 15:00 Subjective/Events-last exam doing better today. normal brown BM's with form. tolerating diet. ambulating better but still has exertional SOB. Hb stable at 7.8. no signs clinical bleeding. Objective Exam Vital Signs Date Time Temp Pulse Resp B/P (MAP) Pulse Ox O2 Delivery O2 Flow Rate FiO2 09/12/18 16:07 100.0 96 20 129/61 (83) 100 Room Air 09/12/18 12:48 115 09/12/18 12:00 99.8 72 20 152/70 (97) 96 Room Air 09/12/18 09:00 Room Air 09/12/18 08:00 99.3 99 22 153/67 (95) 91 Room Air 09/12/18 07:59 95 Room Air 09/12/18 07:00 97 09/12/18 04:17 98.5 94 20 120/58 (78) 97 Room Air 09/12/18 01:00 90 09/12/18 00:51 99.8 09/12/18 00:45 99.8 09/12/18 00:21 100.5 09/12/18 00:11 100.5 94 18 127/59 (81) 95 Room Air 09/11/18 21:00 97 Room Air 09/11/18 20:16 97 Room Air 09/11/18 20:07 100.2 98 18 146/63 (90) 96 Room Air I & O 09/12/18 06:59 Intake Total 3598 ml Output Total 6550 ml Balance -2952 ml Capillary Refill : Less Than 3 Seconds General Appearance: No Apparent Distress HEENT: PERRL/EOMI Neck: Full Range of Motion Respiratory: Chest Non Tender, Rhonci, Wheezing Cardiovascular: Regular Rate, Rhythm Gastrointestinal: normal bowel sounds, non tender, soft Extremity: Normal Capillary Refill Neurologic/Psychiatric: Alert, Oriented x3 Skin: Normal Color Lymphatic: No Adenopathy Results Lab Laboratory Tests 09/12/18 05:22: White Blood Count 7.6, Red Blood Count 2.74L, Hemoglobin 7.7L, Hematocrit 24L, Mean Corpuscular Volume 86, Mean Corpuscular Hemoglobin 28, Mean Corpuscular Hemoglobin Concent 33, Red Cell Distribution Width 19.1H, Platelet Count 68L, Mean Platelet Volume 11.7H, Neutrophils (%) (Auto) 64, Lymphocytes (%) (Auto) 16 , Monocytes (%) (Auto) 17H, Eosinophils (%) (Auto) 3, Basophils (%) (Auto) 0, Neutrophils # (Auto) 4.9, Lymphocytes # (Auto) 1.2, Monocytes # (Auto) 1.3H, Eosinophils # (Auto) 0.2, Basophils # (Auto) 0.0, Sodium Level 133L, Potassium Level 3.9, Chloride Level 104, Carbon Dioxide Level 22, Anion Gap 7, Blood Urea Nitrogen 11, Creatinine 0.72, Estimat Glomerular Filtration Rate > 60, BUN/ Creatinine Ratio 15, Glucose Level 121H, Calcium Level 7.9L, Corrected Calcium 8.9, Total Bilirubin 1.2H, Aspartate Amino Transf (AST/SGOT) 47H, Alanine Aminotransferase (ALT/SGPT) 33, Alkaline Phosphatase 90, Total Protein 5.1L, Albumin 2.7L Microbiology 09/07/18 Blood Culture - Preliminary, Resulted No growth 09/07/18 MRSA Screen - Preliminary, Resulted MRSA not isolated Assessment/Plan Assessment/Plan Assess & Plan/Chief Complaint upper GI bleed with syncopal episode. stage 1 esophageal varices no actively bleeding. child-arredondo A. hb relatively stable. do not think further transfusion necessary at this point. recommend medical management with low sodium(<2g) and water restriction(<2 liters/day). also ETOH cessation. will add protonix and spironolactone. transferred to [facility]. continue to monitor Hb. increase ambulation and ADL's. will recommend hepatology referral as outpatient for further recommendations. Clinical Quality Measures DVT/VTE Risk/Contraindication: Risk Factor Score Per Nursin RFS Level Per Nursing on Admit: 3=High CHAVEZ THURMAN MD Sep 12, 2018 8:05 pm
[2018-09-12 20:10] VITALS: BP 126/59
[2018-09-12] MEDS: ACETAMINOPHEN 325 MG TABLET PO PRN (20:43)
[2018-09-12] MEDS: RT-ALBUTEROL SULF 2.5 MG/3 ML PRE-MIX VIAL INH SCH (20:49)
[2018-09-13 00:01] VITALS: BP 127/57
[2018-09-13 03:38] VITALS: BP 131/60
[2018-09-13 05:58] LABS: BASOPHILS % (AUTO) 0 % (0-10); EOSINOPHILS # (AUTO) 0.1 10^3/uL (0.0-0.3); EOSINOPHILS % (AUTO) 1 % (0-10); HEMATOCRIT 25 % (40-54); HEMOGLOBIN 7.9 G/DL (13.3-17.7); LYMPHOCYTES % (AUTO) 11 % (12-44); MEAN CORPUSCULAR HEMOGLOBIN 28 PG (25-34); MEAN CORPUSCULAR HGB CONC 32 G/DL (32-36); MEAN CORPUSCULAR VOLUME 86 FL (80-99); MONOCYTES # (AUTO) 1.5 X 10^3 (0.0-1.0); MONOCYTES % (AUTO) 18 % (0-12); NEUTROPHILS # (AUTO) 5.8 X 10^3 (1.8-7.8); NEUTROPHILS % (AUTO) 69 % (42-75); PLATELET COUNT 88 10^3/uL (130-400); RED BLOOD COUNT 2.86 10^6/uL (4.35-5.85); RED CELL DISTRIBUTION WIDTH 19.1 % (10.0-14.5); WHITE BLOOD COUNT 8.5 10^3/uL (4.3-11.0)
[2018-09-13 06:09] LABS: INR 1.2 (0.8-1.4); PROTHROMBIN TIME PATIENT 15.6 SEC (12.2-14.7)
[2018-09-13 06:16] LABS: ALANINE AMINOTRANSFERASE 33 U/L (0-55); ALBUMIN 2.8 GM/DL (3.2-4.5); ALKALINE PHOSPHATASE 90 U/L (40-136); BILIRUBIN,TOTAL 1.4 MG/DL (0.1-1.0); BUN/CREATININE RATIO 12; CALCIUM 8.1 MG/DL (8.5-10.1); CARBON DIOXIDE 23 MMOL/L (21-32); CHLORIDE 103 MMOL/L (98-107); CREATININE SERUM 0.76 MG/DL (0.60-1.30); GFR ESTIMATED > 60; GLUCOSE 120 MG/DL (70-105); POTASSIUM 4.3 MMOL/L (3.6-5.0); SODIUM 133 MMOL/L (135-145); TOTAL PROTEIN 5.2 GM/DL (6.4-8.2)
[2018-09-13] MEDS: KCL 10 MEQ TAB (MICRO K) PO SCH (06:29)
[2018-09-13] MEDS: PANTOPRAZOLE 40 MG (PROTONIX) TAB PO SCH ×2 (06:29→16:13)
[2018-09-13] MEDS: SPIRONOLACTONE 25 MG (ALDACTONE) TAB PO SCH (08:07)
[2018-09-13] MEDS: FUROSEMIDE 40 MG/4 ML INJ (LASIX) IVP SCH (08:07)
[2018-09-13 08:40] VITALS: BP 123/57
--- NOTE | 2018-09-13 08:53 | Pulmonary Progress Note ---
Subjective Time Seen by a Provider: 09:19 Subjective/Events-last exam Pt continues to run fever. Sepsis Event Evaluation Height, Weight, BMI Height: 6'1.00" Weight: 336lbs. 11.2oz. 152.886903nd; 42.4 BMI Method:Stated Exam Exam Vital Signs Date Time Temp Pulse Resp B/P (MAP) Pulse Ox O2 Delivery O2 Flow Rate FiO2 09/13/18 08:40 99.2 92 20 123/57 (79) 97 Room Air 09/13/18 03:38 100.1 96 20 131/60 (83) 97 Room Air 09/13/18 01:06 100.8 09/13/18 00:01 100.2 106 20 127/57 (80) 95 Room Air 09/12/18 21:15 101.8 09/12/18 20:51 93 Room Air 09/12/18 20:43 101.9 09/12/18 20:10 101.9 106 20 126/59 (81) 97 Room Air 09/12/18 20:00 Room Air 09/12/18 16:07 100.0 96 20 129/61 (83) 100 Room Air 09/12/18 12:48 115 09/12/18 12:00 99.8 72 20 152/70 (97) 96 Room Air 09/12/18 09:00 Room Air I & O 09/13/18 07:00 Intake Total 3890 ml Output Total 7005 ml Balance -3115 ml Height & Weight Height: 6'1.00" Weight: 336lbs. 11.2oz. 152.576617jr; 42.4 BMI Method:Stated General Appearance: No Apparent Distress HEENT: PERRL/EOMI Neck: Full Range of Motion Respiratory: Chest Non Tender, Rhonci, Wheezing Cardiovascular: Regular Rate, Rhythm Capillary Refill: Less Than 3 Seconds Peripheral Pulses: 2+ Radial Pulses (R), 2+ Radial Pulses (L) Gastrointestinal: normal bowel sounds, non tender, soft Extremity: Normal Capillary Refill Neurologic/Psychiatric: Alert, Oriented x3 Skin: Normal Color Lymphatic: No Adenopathy Results Lab Laboratory Tests 09/12/18 05:22 09/13/18 05:50 Assessment/Plan Assessment/Plan Acute upper GIB s/p colonoscopy 6mo ago which was normal -Hb appears stable -S/p 5 units of PRBC -Protonix 40mg IV BID -surgery consulted Tm 101.9 r/o infection r/o SBP -Check US of abdomen liver, Pancrease today -I discussed with Dr. Meza who will also see him today -I question need for paracentesis -Check Amylase, Lipase -repeat carroll cultures -Start Zosyn -Check UA Acute gastritis -Protonix hx of alcoholism Liver cirrhosis with portal HTN Metabolic lactic acidosis -improved Obesity with probable SAVAGE -Will do PSG as out patient REJI GAXIOLA DO Sep 13, 2018 08:53
[2018-09-13] MEDS ORDERED: PIPERACILLIN SODIUM/TAZOBACTAM 4.5 GM in NS (IVPB) 100 ML IV NR (08:56)
[2018-09-13] MEDS: RT-ALBUTEROL SULF 2.5 MG/3 ML PRE-MIX VIAL INH SCH ×2 (09:14→18:59)
[2018-09-13] MEDS: UMECLIDINIUM BROMIDE (INCRUSE ELLIPTA) 7'S IH SCH (09:14)
[2018-09-13] MEDS: RT-ADVAIR HFA 115/21 MCG PER PUFF IH SCH (09:15)
[2018-09-13 09:24] LABS: BILIRUBIN,URINE NEGATIVE (NEGATIVE); CLARITY,URINE CLEAR; COLOR,URINE YELLOW; GLUCOSE, URINE (UA) NEGATIVE (NEGATIVE); KETONES,URINE NEGATIVE (NEGATIVE); LEUKOCYTE ESTERASE ,URINE NEGATIVE (NEGATIVE); NITRITE,URINE NEGATIVE (NEGATIVE); PH,URINE 5 (5-9); PROTEIN,URINE NEGATIVE (NEGATIVE); UROBILINOGEN,URINE NORMAL (NORMAL)
[2018-09-13 09:31] LABS: BACTERIA,URINE NEGATIVE /HPF
[2018-09-13 09:54] LABS: ALANINE AMINOTRANSFERASE 36 U/L (0-55); ALBUMIN 3.1 GM/DL (3.2-4.5); ALKALINE PHOSPHATASE 96 U/L (40-136); AMYLASE 36 U/L (25-125); BILIRUBIN,TOTAL 1.6 MG/DL (0.1-1.0); BUN/CREATININE RATIO 12; CALCIUM 8.3 MG/DL (8.5-10.1); CARBON DIOXIDE 23 MMOL/L (21-32); CHLORIDE 100 MMOL/L (98-107); CREATININE SERUM 0.76 MG/DL (0.60-1.30); GFR ESTIMATED > 60; GLUCOSE 117 MG/DL (70-105); LIPASE 23 U/L (8-78); SODIUM 131 MMOL/L (135-145); TOTAL PROTEIN 5.6 GM/DL (6.4-8.2)
--- NOTE | 2018-09-13 10:56 | Cardiology Progress Note ---
Subjective Date Seen by Provider: Sep 13, 2018 Time Seen by Provider: 10:54 Subjective/Events-last exam Patient is sitting in a chair, feeling better, had low-grade fever, has been having some cough mainly last night. Denied any chest pain. Review of Systems General: No Chills, No Night Sweats, No Fatigue, No Malaise, No Appetite, No Other HEENT: No Head Aches, No Visual Changes, No Eye Pain, No Ear Pain, No Dysphasia , No Sinus Congestion, No Post Nasal Drip, No Sore Throat, No Other Pulmonary: Dyspnea, Cough; No Pleuritic Chest Pain, No Other Cardiovascular: Edema; No: Chest Pain, Palpitations, Orthopnea, Paroxysmal Noc. Dyspnea, Lt Headedness, Other Focused Exam Lactate Level 09/13/18 09:20: Lactic Acid Level 1.42 Lactic Acid Level Laboratory Tests Test 09/13/18 09:20 Lactic Acid Level 1.42 MMOL/L (0.50-2.00) Objective-Cardiology Exam Last Set of Vital Signs Vital Signs 09/09/18 09/09/18 09/13/18 09/13/18 01:42 16:38 08:40 09:18 Temp 99.2 Pulse 92 Resp 20 B/P (MAP) 123/57 (79) Pulse Ox 94 O2 Delivery Room Air O2 Flow Rate 2.00 FiO2 2 Capillary Refill : Less Than 3 Seconds I&O Intake and Output 09/13/18 00:00 Intake Total 3570 ml Output Total 7200 ml Balance -3630 ml Intake Oral 3070 ml IV Total 500 ml Output Urine Total 7200 ml General: Alert, Oriented X3, Cooperative HEENT: Atraumatic, PERRLA Neck: Supple, No JVD, No Thyromegaly Lungs: Normal Air Movement, Other (Wheezing) Heart: Regular Rate, Normal S1, Normal S2, No Murmurs Abdomen: Normal Bowel Sounds, Soft, No Tenderness, No Hepatosplenomegaly, No Masses, Other (Distended abdomen) Extremities: No Clubbing, No Cyanosis, Normal Pulses, No Tenderness/Swelling, Other (+1-2 edema BLE) Skin: No Rashes, No Breakdown, No Significant Lesion Neuro: Normal Gait, Normal Speech, Strength at 5/5 X4 Ext, Normal Tone, Sensation Intact Psych/Mental Status: Mental Status NL, Mood NL Results Lab Laboratory Tests 09/13/18 05:50 09/13/18 09:20 A/P-Cardiology Admission Diagnosis Syncope Hypertension Hyperlipidemia Obesity Assessment/Plan Peptic ulcer disease, stage I esophageal varesis, gastritis, managed by Dr. Colmenares Anemia, multiple transfusion, continue to monitor H/H closely Shortness of breath, cough, low-grade fever, repeating chest x-ray today, panculture, started back on Zosyn, continue on Lasix and monitor tolerance and response. Portal hypertension and liver cirrhosis, ascites, planning to evaluate ultrasound, possible paracentesis Echocardiogram showed normal LV size and function with ejection fraction 60 percent, grade 1 diastolic dysfunction, aortic valve sclerosis no aortic stenosis, mild MR, PA 30-35 mmHg, continue to monitor Hypertension, controlled, monitor blood pressure Hyperlipidemia, continue to monitor lipids. Peripheral edema, continue to diurese. 2D Echo done revealed normal EF. COPD, on bronchodilator, followed and managed by Dr. Serna, was tested for sleep apnea and reported that it was negative. Obesity, BMI 42, we discussed weight loss and exercise Alcoholism, educated about limiting alcohol intake Faint bilateral carotid bruit, will evaluate carotid ultrasound as an outpatient Clinical Quality Measures DVT/VTE Risk/Contraindication: Risk Factor Score Per Nursin RFS Level Per Nursing on Admit: 3=High JEANMARIE MARCANO MD Sep 13, 2018 10:56
[2018-09-13] MEDS ORDERED: SPIRONOLACTONE 25 MG (ALDACTONE) TAB PO ONE (11:00)
--- NOTE | 2018-09-13 11:19 | Diagnostic Imaging Report ---
INDICATION: Shortness of breath and cough. TIME OF EXAM: 10:23 AM Correlation is made with prior study from 09/10/2018. FINDINGS: Heart size is stable. Lungs appear to be clear. No infiltrates are seen. No effusion or pneumothorax is identified. IMPRESSION: No acute cardiopulmonary process is detected. Dictated by: Dictated on workstation # [id number]
[2018-09-13 11:35] VITALS: BP 126/62
--- NOTE | 2018-09-13 12:23 | Progress Note-Hospitalist ---
Subjective HPI/CC On Admission Date Seen by Provider: Sep 13, 2018 Time Seen by Provider: 11:00 CC: Dizziness and Fatigue HPI: The patient is a 63 y/o male who presented to the ER at [facility] yesterday with a chief complaint of dizziness and fatigue. He states that he has been having intermittent black and tarry stools for the past 4-5 months. He also states that he occasionally has upper abdominal pain which he describes as a mild burning. He also admits to occasional heartburn. Saturday morning he awoke around 5:30 am and was very dizzy upon sitting up in bed and just felt like he couldn't get out of bed. He said that throughout the day he would become dizzy and unsteady whenever he would attempt to get up and move around. Around 7pm he passed out while trying to ambulate and his convinced him to go to the ER. He states that he had a colonoscopy 1 year ago that was unremarkable. Subjective/Events-last exam Patient started running a fever last night Wheezing was noted by the patient and on exam it appears that he has a right lower lobe at least early pneumonia versus atelectasis versus some sort of early pneumonitis and was placed on empiric Zosyn by Dr. Serna and after Daphne and Georgie conferred Ultrasound will be performed to evaluate for possible spontaneous bacterial peritonitis due to liver disease Patient overall is doing well and walking around well Diuresis is working very well Low iron noted so we'll initiate iron infusions Due to history of asthma and COPD Will initiate low dose of Solu-Medrol Review of Systems Pulmonary: Dyspnea Focused Exam Lactate Level 09/13/18 09:20: Lactic Acid Level 1.42 Lactic Acid Level Objective Exam Vital Signs Vital Signs Date Time Temp Pulse Resp B/P (MAP) Pulse Ox O2 Delivery O2 Flow Rate FiO2 09/13/18 11:35 99.0 90 20 126/62 (83) 98 Room Air 09/09/18 16:38 2.00 09/09/18 01:42 2 Capillary Refill : Less Than 3 Seconds General Appearance: No Apparent Distress, WD/WN, Obese Respiratory: Chest Non Tender, No Accessory Muscle Use, No Respiratory Distress , Crackles, Decreased Breath Sounds, Wheezing Cardiovascular: Regular Rate, Rhythm, No Edema, No Gallop, No JVD, No Murmur, Normal Peripheral Pulses Neurologic/Psychiatric: Alert, Oriented x3, No Motor/Sensory Deficits, Normal Mood/Affect Results/Procedures Lab Laboratory Tests 09/13/18 05:50 09/13/18 09:20 Patient resulted labs reviewed. Assessment/Plan Assessment and Plan Assess & Plan/Chief Complaint Assessment: Fever with negative CXR but new rales RLL c/w early pneumonitis so will cover empirically Severe GIB requiring 6 units of blood and 2 units of FFP Acute volume overload with edema initiating IV Lasix improved Cirrhosis new dx ETOH excessive use HTN Asthma Poor venous access Plan: Monitor hgb closely Hepatology referral once DC IV Lasix Midline Alcohol cessation IV iron Abx Zosyn Nebs Low dose of Solumedrol Ambulate Diagnosis/Problems Diagnosis/Problems (1) Fever Status: Acute Qualifiers: Fever type: unspecified Qualified Codes: R50.9 - Fever, unspecified (2) GI bleed Status: Resolved Qualifiers: GI bleed type/associated pathology: unspecified gastrointestinal hemorrhage type Qualified Codes: K92.2 - Gastrointestinal hemorrhage, unspecified Resolution Date/Time: 09/11/18 @ 11:34 (3) Acute blood loss anemia Status: Acute (4) Cirrhosis Status: Acute Qualifiers: Hepatic cirrhosis type: alcoholic cirrhosis Ascites presence: with ascites Qualified Codes: K70.31 - Alcoholic cirrhosis of liver with ascites (5) Portal hypertension Status: Acute (6) Coagulopathy Status: Acute (7) Transfusion of blood during current hospitalization Status: Acute (8) Esophageal varices Status: Acute Qualifiers: Esophageal varices type: unspecified type Esophageal varices bleeding: without bleeding Qualified Codes: I85.00 - Esophageal varices without bleeding (9) Volume overload Status: Acute Qualifiers: Hypervolemia type: unspecified Qualified Codes: E87.70 - Fluid overload, unspecified (10) Edema Status: Acute Qualifiers: Edema type: unspecified Qualified Codes: R60.9 - Edema, unspecified (11) Wheezing Status: Acute (12) Rales Status: Acute Assessment & Plan: RLL (13) Pneumonia Status: Acute Qualifiers: Pneumonia type: due to unspecified organism Laterality: right Lung location: lower lobe of lung Qualified Codes: J18.1 - Lobar pneumonia, unspecified organism Clinical Quality Measures DVT/VTE Risk/Contraindication: Risk Factor Score Per Nursin RFS Level Per Nursing on Admit: 3=High BRENNA LIND DO Sep 13, 2018 12:23
--- NOTE | 2018-09-13 12:50 | Progress Note (SOAP) ---
Subjective Date Seen by a Provider: Sep 13, 2018 Time Seen by a Provider: 11:20 Subjective/Events-last exam highest temperature at 101.8. Eversion of umbilicus being more symptomatic.no GI bleeding. Hemoglobin 7.9. Bilirubin at 1.6 Review of Systems General: Fatigue HEENT: No Head Aches, No Eye Pain, No Ear Pain, No Dysphasia, No Sinus Congestion, No Post Nasal Drip, No Sore Throat Pulmonary: Cough Cardiovascular: No: Chest Pain, Palpitations, Orthopnea, Paroxysmal Noc. Dyspnea, Edema, Lt Headedness Gastrointestinal: Other Genitourinary: No Dysuria, No Frequency, No Incontinence, No Hematuria, No Retention Musculoskeletal: No: other, neck pain, shoulder pain, arm pain, back pain, hand pain, leg pain, foot pain Neurological: No: Weakness, Numbness, Incoordination, Change in speech, Confusion, Seizures, Other Focused Exam Lactate Level 09/13/18 09:20: Lactic Acid Level 1.42 Lactic Acid Level Laboratory Tests Test 09/13/18 09:20 Lactic Acid Level 1.42 MMOL/L (0.50-2.00) Objective Exam Vital Signs Date Time Temp Pulse Resp B/P (MAP) Pulse Ox O2 Delivery O2 Flow Rate FiO2 09/13/18 11:35 99.0 90 20 126/62 (83) 98 Room Air 09/13/18 09:18 94 Room Air 09/13/18 09:00 Room Air 09/13/18 08:40 99.2 92 20 123/57 (79) 97 Room Air 09/13/18 03:38 100.1 96 20 131/60 (83) 97 Room Air 09/13/18 01:06 100.8 09/13/18 00:01 100.2 106 20 127/57 (80) 95 Room Air 09/12/18 21:15 101.8 09/12/18 20:51 93 Room Air 09/12/18 20:43 101.9 09/12/18 20:10 101.9 106 20 126/59 (81) 97 Room Air 09/12/18 20:00 Room Air 09/12/18 16:07 100.0 96 20 129/61 (83) 100 Room Air I & O 09/13/18 06:59 Intake Total 3890 ml Output Total 7005 ml Balance -3115 ml Capillary Refill : Less Than 3 Seconds General Appearance: No Apparent Distress Cardiovascular: Regular Rate, Rhythm Gastrointestinal: soft, hernia Extremity: Normal Inspection Neurologic/Psychiatric: Oriented x3 Skin: Warm/Dry Other comments long-standing umbilical hernia with skin being fragile. Results Lab Laboratory Tests 09/13/18 05:50: White Blood Count 8.5, Red Blood Count 2.86L, Hemoglobin 7.9L, Hematocrit 25L, Mean Corpuscular Volume 86, Mean Corpuscular Hemoglobin 28, Mean Corpuscular Hemoglobin Concent 32, Red Cell Distribution Width 19.1H, Platelet Count 88L, Mean Platelet Volume 12.0H, Neutrophils (%) (Auto) 69, Lymphocytes (%) (Auto) 11L, Monocytes (%) (Auto) 18H, Eosinophils (%) (Auto) 1, Basophils (%) (Auto) 0 , Neutrophils # (Auto) 5.8, Lymphocytes # (Auto) 1.0, Monocytes # (Auto) 1.5H, Eosinophils # (Auto) 0.1, Basophils # (Auto) 0.0, Prothrombin Time 15.6H, INR Comment 1.2, Sodium Level 133L, Potassium Level 4.3, Chloride Level 103, Carbon Dioxide Level 23, Anion Gap 7, Blood Urea Nitrogen 9, Creatinine 0.76, Estimat Glomerular Filtration Rate > 60, BUN/Creatinine Ratio 12, Glucose Level 120H, Calcium Level 8.1L, Corrected Calcium 9.1, Total Bilirubin 1.4H, Aspartate Amino Transf (AST/SGOT) 48H, Alanine Aminotransferase (ALT/SGPT) 33, Alkaline Phosphatase 90, Total Protein 5.2L, Albumin 2.8L 09/13/18 09:10: Urine Color YELLOW, Urine Clarity CLEAR, Urine pH 5, Urine Specific [place] 1.010L, Urine Protein NEGATIVE, Urine Glucose (UA) NEGATIVE, Urine Ketones NEGATIVE, Urine Nitrite NEGATIVE, Urine Bilirubin NEGATIVE, Urine Urobilinogen NORMAL, Urine Leukocyte Esterase NEGATIVE, Urine RBC (Auto) NEGATIVE, Urine RBC NONE, Urine WBC NONE, Urine Crystals NONE, Urine Bacteria NEGATIVE, Urine Casts NONE, Urine Mucus NEGATIVE, Urine Culture Indicated NO 09/13/18 09:20: Sodium Level 131L, Potassium Level 4.0, Chloride Level 100, Carbon Dioxide Level 23, Anion Gap 8, Blood Urea Nitrogen 9, Creatinine 0.76, Estimat Glomerular Filtration Rate > 60, BUN/Creatinine Ratio 12, Glucose Level 117H, Calcium Level 8.3L, Corrected Calcium 9.0, Total Bilirubin 1.6H, Aspartate Amino Transf (AST/SGOT) 50H, Alanine Aminotransferase (ALT/SGPT) 36, Alkaline Phosphatase 96, Total Protein 5.6L, Albumin 3.1L, Lactic Acid Level 1.42, Amylase Level 36, Lipase 23 Microbiology 09/07/18 Blood Culture - Preliminary, Resulted No growth 09/13/18 Influenza Types A,B Antigen (BERTA) - Final, Complete Assessment/Plan Assessment/Plan Assess & Plan/Chief Complaint gentleman with portal hypertension with esophageal varices and enlarged mesenteric vessels. Umbilical hernia. Very minimal ascites noticed on CT scan from 5 days ago. Do not see any concern about spontaneous bacterial peritonitis. Fever very likely pulmonary in origin. Patient reassured. Final Diagnosis portal hypertension Clinical Quality Measures DVT/VTE Risk/Contraindication: Risk Factor Score Per Nursin RFS Level Per Nursing on Admit: 3=High FRANCOIS CAMPBELL MD Sep 13, 2018 12:50
[2018-09-13] MEDS: IRON SUCROSE 200 MG/10 ML (VENOFER) VIAL IV SCH (13:30)
--- NOTE | 2018-09-13 14:15 | Diagnostic Imaging Report ---
PROCEDURE: US Abdomen, limited. TECHNIQUE: Multiple realtime grayscale images were obtained over the abdomen in various projections. INDICATION: Ascites COMPARISON: There are no prior ultrasound examinations available for comparison. FINDINGS: The CT abdomen / pelvis exam of 09/07/2018 did note mild ascites with pericholecystic fluid. On this study, there is no significant free fluid accumulation identified. All 4 quadrants of the abdomen were evaluated. There may be some sludge within the gallbladder but there is no evidence for cholelithiasis or acute cholecystitis. The liver does not appear to be enlarged and there is no focal mass involving the liver. The pancreas and right kidney were obscured by bowel gas as was the common bile duct and the proximal aorta. IMPRESSION: 1. There does not appear to be any significant free fluid within the abdomen. If further study is desired, CT of the abdomen and pelvis would be recommended. 2. There is no acute abnormality identified. Dictated by: Dictated on workstation # [id number]
[2018-09-13] MEDS: methylPREDNISolone 40 MG/ML (Solu-MEDROL) VIAL IV SCH ×2 (14:23→20:45)
[2018-09-13] MEDS: PIPERACILLIN SODIUM/TAZOBACTAM 4.5 GM in NS (IVPB) 100 ML IV SCH ×2 (14:23→22:56)
[2018-09-13 16:05] VITALS: BP 134/60
[2018-09-13] MEDS: ACETAMINOPHEN 325 MG TABLET PO PRN (16:12)
[2018-09-13 20:25] VITALS: BP 132/69
[2018-09-14] VITALS: BP 127/58
[2018-09-14 04:00] VITALS: BP 147/69
[2018-09-14 05:53] LABS: BASOPHILS % (AUTO) 0 % (0-10); EOSINOPHILS % (AUTO) 0 % (0-10); HEMATOCRIT 25 % (40-54); LYMPHOCYTES # (AUTO) 0.5 X 10^3 (1.0-4.0); LYMPHOCYTES % (AUTO) 6 % (12-44); MEAN CORPUSCULAR HEMOGLOBIN 28 PG (25-34); MEAN CORPUSCULAR HGB CONC 32 G/DL (32-36); MEAN CORPUSCULAR VOLUME 86 FL (80-99); MONOCYTES # (AUTO) 0.7 X 10^3 (0.0-1.0); MONOCYTES % (AUTO) 8 % (0-12); NEUTROPHILS % (AUTO) 87 % (42-75); PLATELET COUNT 96 10^3/uL (130-400); RED BLOOD COUNT 2.87 10^6/uL (4.35-5.85); RED CELL DISTRIBUTION WIDTH 18.9 % (10.0-14.5); WHITE BLOOD COUNT 9.3 10^3/uL (4.3-11.0)
[2018-09-14] MEDS: KCL 10 MEQ TAB (MICRO K) PO SCH (06:06)
[2018-09-14] MEDS: PANTOPRAZOLE 40 MG (PROTONIX) TAB PO SCH ×2 (06:06→17:00)
[2018-09-14] MEDS: PIPERACILLIN SODIUM/TAZOBACTAM 4.5 GM in NS (IVPB) 100 ML IV SCH ×3 (06:08→22:33)
[2018-09-14 06:09] LABS: ALANINE AMINOTRANSFERASE 34 U/L (0-55); ALBUMIN 2.8 GM/DL (3.2-4.5); ALKALINE PHOSPHATASE 110 U/L (40-136); AMMONIA 41 UMOL/L (11-32); BILIRUBIN,TOTAL 0.8 MG/DL (0.1-1.0); BUN/CREATININE RATIO 14; CARBON DIOXIDE 19 MMOL/L (21-32); CHLORIDE 101 MMOL/L (98-107); CREATININE SERUM 0.77 MG/DL (0.60-1.30); GFR ESTIMATED > 60; GLUCOSE 130 MG/DL (70-105); POTASSIUM 4.1 MMOL/L (3.6-5.0); SODIUM 130 MMOL/L (135-145); TOTAL PROTEIN 5.5 GM/DL (6.4-8.2)
[2018-09-14 08:24] VITALS: BP 138/65
--- NOTE | 2018-09-14 09:38 | Cardiology Progress Note ---
Subjective Date Seen by Provider: Sep 14, 2018 Time Seen by Provider: 09:35 Subjective/Events-last exam Patient is in a chair, feeling better today, more energy, no chest pain Review of Systems General: No Chills, No Night Sweats, No Fatigue, No Malaise, No Appetite, No Other HEENT: No Head Aches, No Visual Changes, No Eye Pain, No Ear Pain, No Dysphasia , No Sinus Congestion, No Post Nasal Drip, No Sore Throat, No Other Pulmonary: No Dyspnea, No Cough, No Pleuritic Chest Pain, No Other Cardiovascular: Edema; No: Chest Pain, Palpitations, Orthopnea, Paroxysmal Noc. Dyspnea, Lt Headedness, Other Focused Exam Lactate Level 09/13/18 09:20: Lactic Acid Level 1.42 Objective-Cardiology Exam Last Set of Vital Signs Vital Signs 09/09/18 09/09/18 09/14/18 01:42 16:38 08:24 Temp 97.6 Pulse 97 Resp 20 B/P (MAP) 138/65 (89) Pulse Ox 99 O2 Delivery Room Air O2 Flow Rate 2.00 FiO2 2 Capillary Refill : Less Than 3 Seconds I&O Intake and Output 09/14/18 00:00 Intake Total 4920 ml Output Total 5990 ml Balance -1070 ml Intake Oral 4720 ml IV Total 200 ml Output Urine Total 5990 ml # Voids 8 General: Alert, Oriented X3, Cooperative HEENT: Atraumatic, PERRLA Neck: Supple, No JVD, No Thyromegaly Lungs: Normal Air Movement, Other (Wheezing) Heart: Regular Rate, Normal S1, Normal S2, No Murmurs Abdomen: Normal Bowel Sounds, Soft, No Tenderness, No Hepatosplenomegaly, No Masses, Other (Distended abdomen) Extremities: No Clubbing, No Cyanosis, Normal Pulses, No Tenderness/Swelling, Other (+1 edema BLE) Skin: No Rashes, No Breakdown, No Significant Lesion Neuro: Normal Gait, Normal Speech, Strength at 5/5 X4 Ext, Normal Tone, Sensation Intact Psych/Mental Status: Mental Status NL, Mood NL Results Lab Laboratory Tests 09/14/18 05:35 A/P-Cardiology Admission Diagnosis Syncope Hypertension Hyperlipidemia Obesity Assessment/Plan Peptic ulcer disease, stage I esophageal varices, gastritis, managed by Dr. Colmenares Anemia, multiple transfusion, improving slowly. Continue to monitor Shortness of breath, cough, low-grade fever, feeling better today, receiving antibiotic and steroids. Portal hypertension and liver cirrhosis, ultrasound did not show significant ascites. Continue to monitor Echocardiogram showed normal LV size and function with ejection fraction 60 percent, grade 1 diastolic dysfunction, aortic valve sclerosis no aortic stenosis, mild MR, PA 30-35 mmHg, continue to monitor Hypertension, controlled, monitor blood pressure Hyperlipidemia, continue to monitor lipids. Peripheral edema, continue to diurese. 2D Echo done revealed normal EF. COPD, on bronchodilator, followed and managed by Dr. Serna, was tested for sleep apnea and reported that it was negative. Obesity, BMI 42, we discussed weight loss and exercise Alcoholism, educated about limiting alcohol intake Faint bilateral carotid bruit, will evaluate carotid ultrasound as an outpatient Clinical Quality Measures DVT/VTE Risk/Contraindication: Risk Factor Score Per Nursin RFS Level Per Nursing on Admit: 3=High JEANMARIE MARCANO MD Sep 14, 2018 09:38
[2018-09-14] MEDS: SPIRONOLACTONE 25 MG (ALDACTONE) TAB PO SCH (09:40)
[2018-09-14] MEDS: FUROSEMIDE 40 MG/4 ML INJ (LASIX) IVP SCH (09:40)
[2018-09-14] MEDS: methylPREDNISolone 40 MG/ML (Solu-MEDROL) VIAL IV SCH ×2 (09:40→20:49)
[2018-09-14] MEDS: RT-ALBUTEROL SULF 2.5 MG/3 ML PRE-MIX VIAL INH SCH ×2 (09:59→19:26)
[2018-09-14] MEDS: RT-ADVAIR HFA 115/21 MCG PER PUFF IH SCH (10:01)
[2018-09-14] MEDS: UMECLIDINIUM BROMIDE (INCRUSE ELLIPTA) 7'S IH SCH (10:01)
--- NOTE | 2018-09-14 11:25 | Progress Note-Hospitalist ---
Subjective HPI/CC On Admission Date Seen by Provider: Sep 14, 2018 Time Seen by Provider: 10:45 CC: Dizziness and Fatigue HPI: The patient is a 63 y/o male who presented to the ER at [facility] yesterday with a chief complaint of dizziness and fatigue. He states that he has been having intermittent black and tarry stools for the past 4-5 months. He also states that he occasionally has upper abdominal pain which he describes as a mild burning. He also admits to occasional heartburn. Saturday morning he awoke around 5:30 am and was very dizzy upon sitting up in bed and just felt like he couldn't get out of bed. He said that throughout the day he would become dizzy and unsteady whenever he would attempt to get up and move around. Around 7pm he passed out while trying to ambulate and his convinced him to go to the ER. He states that he had a colonoscopy 1 year ago that was unremarkable. Subjective/Events-last exam Patient much improved today Lost 20# since Lasix 40mg IV given the past 4 days Breathing better and responding to abx and steroids Sputum reveals nl domonique Had been placed on MDI from Urgent Care recently for wheezing and dyspnea Bowels are moving Likely will be ready to go tomorrow Checked meds and labs Will need IV iron infusions to complete the course No melena reported Review of Systems General: Fatigue Pulmonary: Cough Focused Exam Lactate Level 09/13/18 09:20: Lactic Acid Level 1.42 Objective Exam Vital Signs Vital Signs Date Time Temp Pulse Resp B/P (MAP) Pulse Ox O2 Delivery O2 Flow Rate FiO2 09/14/18 12:10 98.0 92 20 136/70 (92) 98 Room Air 09/09/18 16:38 2.00 09/09/18 01:42 2 Capillary Refill : Less Than 3 Seconds General Appearance: No Apparent Distress, WD/WN Respiratory: Chest Non Tender, Lungs Clear, Normal Breath Sounds, No Accessory Muscle Use, No Respiratory Distress Cardiovascular: Regular Rate, Rhythm, No Edema, No Gallop, No JVD, No Murmur, Normal Peripheral Pulses Neurologic/Psychiatric: Alert, Oriented x3, No Motor/Sensory Deficits, Normal Mood/Affect Skin: Normal Color, Warm/Dry Results/Procedures Lab Laboratory Tests 09/14/18 05:35 Patient resulted labs reviewed. Assessment/Plan Assessment and Plan Assess & Plan/Chief Complaint Assessment: Fever with negative CXR but new rales RLL c/w early pneumonitis noted yesterday so placed on Zosyn empirically and today resolved rales Severe GIB requiring 6 units of blood and 2 units of FFP Acute volume overload with edema initiating IV Lasix improved now lost 20# Cirrhosis new dx ETOH excessive use HTN Asthma Poor venous access Plan: Monitor hgb closely Hepatology referral once DC IV Lasix Midline Alcohol cessation IV iron to be completed as outpt Abx Zosyn to be maintained Nebs Low dose of Solumedrol to continue Ambulate DC home tomorrow Diagnosis/Problems Diagnosis/Problems (1) Fever Status: Acute Qualifiers: Fever type: unspecified Qualified Codes: R50.9 - Fever, unspecified (2) GI bleed Status: Resolved Qualifiers: GI bleed type/associated pathology: unspecified gastrointestinal hemorrhage type Qualified Codes: K92.2 - Gastrointestinal hemorrhage, unspecified Resolution Date/Time: 09/11/18 @ 11:34 (3) Acute blood loss anemia Status: Acute (4) Cirrhosis Status: Acute Qualifiers: Hepatic cirrhosis type: alcoholic cirrhosis Ascites presence: with ascites Qualified Codes: K70.31 - Alcoholic cirrhosis of liver with ascites (5) Portal hypertension Status: Acute (6) Coagulopathy Status: Acute (7) Transfusion of blood during current hospitalization Status: Acute (8) Esophageal varices Status: Acute Qualifiers: Esophageal varices type: unspecified type Esophageal varices bleeding: without bleeding Qualified Codes: I85.00 - Esophageal varices without bleeding (9) Volume overload Status: Acute Qualifiers: Hypervolemia type: unspecified Qualified Codes: E87.70 - Fluid overload, unspecified (10) Edema Status: Acute Qualifiers: Edema type: unspecified Qualified Codes: R60.9 - Edema, unspecified (11) Wheezing Status: Resolved Resolution Date/Time: 09/14/18 @ 13:50 (12) Rales Status: Resolved Assessment & Plan: RLL Resolution Date/Time: 09/14/18 @ 13:50 (13) Pneumonia Status: Acute Qualifiers: Pneumonia type: due to unspecified organism Laterality: right Lung location: lower lobe of lung Qualified Codes: J18.1 - Lobar pneumonia, unspecified organism Clinical Quality Measures DVT/VTE Risk/Contraindication: Risk Factor Score Per Nursin RFS Level Per Nursing on Admit: 3=High BRENNA LIND DO Sep 14, 2018 11:25
[2018-09-14 12:10] VITALS: BP 136/70
[2018-09-14 16:25] VITALS: BP 136/61
[2018-09-14 19:43] VITALS: BP 139/61
[2018-09-15 00:07] VITALS: BP 130/59
[2018-09-15 04:00] VITALS: BP 134/63
[2018-09-15 05:02] LABS: BASOPHILS % (AUTO) 0 % (0-10); EOSINOPHILS % (AUTO) 0 % (0-10); HEMATOCRIT 26 % (40-54); HEMOGLOBIN 8.2 G/DL (13.3-17.7); LYMPHOCYTES # (AUTO) 0.9 X 10^3 (1.0-4.0); LYMPHOCYTES % (AUTO) 7 % (12-44); MEAN CORPUSCULAR HEMOGLOBIN 28 PG (25-34); MEAN CORPUSCULAR HGB CONC 32 G/DL (32-36); MEAN CORPUSCULAR VOLUME 86 FL (80-99); MEAN PLATELET VOLUME 11.4 FL (7.4-10.4); MONOCYTES # (AUTO) 0.9 X 10^3 (0.0-1.0); MONOCYTES % (AUTO) 7 % (0-12); NEUTROPHILS % (AUTO) 86 % (42-75); PLATELET COUNT 118 10^3/uL (130-400); RED BLOOD COUNT 2.96 10^6/uL (4.35-5.85); RED CELL DISTRIBUTION WIDTH 19.3 % (10.0-14.5); WHITE BLOOD COUNT 12.7 10^3/uL (4.3-11.0)
[2018-09-15 05:21] LABS: ALANINE AMINOTRANSFERASE 34 U/L (0-55); ALKALINE PHOSPHATASE 117 U/L (40-136); BILIRUBIN,TOTAL 0.6 MG/DL (0.1-1.0); BUN/CREATININE RATIO 15; CALCIUM 8.2 MG/DL (8.5-10.1); CARBON DIOXIDE 20 MMOL/L (21-32); CHLORIDE 105 MMOL/L (98-107); GFR ESTIMATED > 60; GLUCOSE 143 MG/DL (70-105); POTASSIUM 4.6 MMOL/L (3.6-5.0); SODIUM 133 MMOL/L (135-145); TOTAL PROTEIN 5.3 GM/DL (6.4-8.2)
[2018-09-15] MEDS: PANTOPRAZOLE 40 MG (PROTONIX) TAB PO SCH (06:11)
[2018-09-15] MEDS: KCL 10 MEQ TAB (MICRO K) PO SCH (06:11)
[2018-09-15] MEDS: PIPERACILLIN SODIUM/TAZOBACTAM 4.5 GM in NS (IVPB) 100 ML IV SCH (06:12)
--- NOTE | 2018-09-15 06:41 | Pulmonary Progress Note ---
Subjective Time Seen by a Provider: 06:53 Sepsis Event Evaluation Height, Weight, BMI Height: 6'1.00" Weight: 324lbs. 11.2oz. 146.367973pr; 42.4 BMI Method:Stated Focused Exam Lactate Level 09/13/18 09:20: Lactic Acid Level 1.42 Exam Exam Vital Signs Date Time Temp Pulse Resp B/P (MAP) Pulse Ox O2 Delivery O2 Flow Rate FiO2 09/15/18 00:07 98.6 93 20 130/59 (82) 97 Room Air 09/14/18 20:00 Room Air 09/14/18 19:43 99.6 105 24 139/61 (87) 95 Room Air 09/14/18 19:26 98 Room Air 09/14/18 16:25 99.2 102 24 136/61 (86) 96 Room Air 09/14/18 12:10 98.0 92 20 136/70 (92) 98 Room Air 09/14/18 09:59 98 Room Air 09/14/18 08:55 Room Air 09/14/18 08:24 97.6 97 20 138/65 (89) 99 Room Air I & O 09/15/18 07:00 Intake Total 4678 ml Output Total 1650 ml Balance 3028 ml Height & Weight Height: 6'1.00" Weight: 324lbs. 11.2oz. 146.545811at; 42.4 BMI Method:Stated General Appearance: No Apparent Distress, WD/WN HEENT: PERRL/EOMI Neck: Full Range of Motion Respiratory: Chest Non Tender, Lungs Clear, Normal Breath Sounds, No Accessory Muscle Use, No Respiratory Distress Cardiovascular: Regular Rate, Rhythm, No Edema, No Gallop, No JVD, No Murmur, Normal Peripheral Pulses Capillary Refill: Less Than 3 Seconds Peripheral Pulses: 2+ Radial Pulses (R), 2+ Radial Pulses (L) Gastrointestinal: soft, hernia Extremity: Normal Inspection Neurologic/Psychiatric: Alert, Oriented x3, No Motor/Sensory Deficits, Normal Mood/Affect Skin: Normal Color, Warm/Dry Lymphatic: No Adenopathy Results Lab Laboratory Tests 09/13/18 09:20 09/14/18 05:35 09/15/18 04:42 Assessment/Plan Assessment/Plan Acute upper GIB s/p colonoscopy 6mo ago which was normal -Hb appears stable -S/p 5 units of PRBC -Protonix 40mg IV BID -surgery consulted H influenza PNA and bacteremia fd -Needs total of 10 days of ABx -Continue Zosyn -Can switch to Augmentin or Amoxil at discharge Acute gastritis -Protonix hx of alcoholism Liver cirrhosis with portal HTN Metabolic lactic acidosis -improved Obesity with probable SAVAGE -Will do PSG as out patient REJI GAXIOLA DO Sep 15, 2018 06:41
[2018-09-15 08:00] VITALS: BP 123/67
--- NOTE | 2018-09-15 08:28 | Cardiology Progress Note ---
Subjective Date Seen by Provider: Sep 15, 2018 Time Seen by Provider: 08:25 Subjective/Events-last exam Patient is sitting up in chair, no new complaints. Denies any chest pain or dyspnea at this time. Review of Systems General: No Night Sweats, No Fatigue HEENT: No Visual Changes, No Dysphasia, No Sore Throat Pulmonary: No Dyspnea, No Cough Cardiovascular: No: Chest Pain, Palpitations, Orthopnea Gastrointestinal: No: Nausea, Vomiting, Abdominal Pain Genitourinary: No Dysuria, No Frequency Musculoskeletal: No: neck pain, back pain Neurological: No: Weakness, Numbness, Change in speech, Confusion Focused Exam Lactate Level 09/13/18 09:20: Lactic Acid Level 1.42 Objective-Cardiology Exam Last Set of Vital Signs Vital Signs 09/09/18 09/09/18 09/15/18 01:42 16:38 04:00 Temp 99.1 Pulse 97 Resp 20 B/P (MAP) 134/63 (86) Pulse Ox 96 O2 Delivery Room Air O2 Flow Rate 2.00 FiO2 2 Capillary Refill : Less Than 3 Seconds I&O Intake and Output 09/15/18 00:00 Intake Total 4360 ml Output Total 1675 ml Balance 2685 ml Intake Oral 4260 ml IV Total 100 ml Output Urine Total 1675 ml # Voids 26 # Bowel Movements 2 General: Alert, Oriented X3, Cooperative HEENT: Atraumatic, PERRLA Neck: Supple, No JVD, No Thyromegaly Lungs: Clear to Auscultation, Normal Air Movement Heart: Regular Rate, Normal S1, Normal S2, No Murmurs Abdomen: Normal Bowel Sounds, Soft, No Tenderness, No Hepatosplenomegaly, No Masses Extremities: No Clubbing, No Cyanosis, Normal Pulses, No Tenderness/Swelling, Other (+1 edema BLE) Skin: No Rashes, No Breakdown, No Significant Lesion Neuro: Normal Gait, Normal Speech, Strength at 5/5 X4 Ext, Normal Tone, Sensation Intact Psych/Mental Status: Mental Status NL, Mood NL Results Lab Laboratory Tests 09/15/18 04:42 A/P-Cardiology Admission Diagnosis Syncope Hypertension Hyperlipidemia Obesity Assessment/Plan Peptic ulcer disease, stage I esophageal varices, gastritis, managed by Dr. Colmenares Anemia, multiple transfusion, improving slowly. Continue to monitor H. Influenza PNA- continue antibiotics, management per Dr. Serna and hospitalist service Portal hypertension and liver cirrhosis, ultrasound did not show significant ascites. Continue to monitor Echocardiogram showed normal LV size and function with ejection fraction 60 percent, grade 1 diastolic dysfunction, aortic valve sclerosis no aortic stenosis, mild MR, PA 30-35 mmHg, continue to monitor Hypertension, controlled, monitor blood pressure Hyperlipidemia, continue to monitor lipids. Peripheral edema, continue to diurese. 2D Echo done revealed normal EF. COPD, on bronchodilator, followed and managed by Dr. Serna, was tested for sleep apnea and reported that it was negative. Obesity, BMI 42, we discussed weight loss and exercise Alcoholism, educated about limiting alcohol intake Faint bilateral carotid bruit, will evaluate carotid ultrasound as an outpatient OK to discharge from cardiology standpoint. Follow up in 2-4 weeks in our office. Clinical Quality Measures DVT/VTE Risk/Contraindication: Risk Factor Score Per Nursin RFS Level Per Nursing on Admit: 3=High GILES CROWE Sep 15, 2018 08:28
[2018-09-15] MEDS ORDERED: AMOX-358 PO (08:44)
[2018-09-15] MEDS ORDERED: ACID1TAB5 PO (08:44)
[2018-09-15] MEDS ORDERED: SPIR25TA5 PO (08:44)
[2018-09-15] MEDS ORDERED: PANT40TA2 PO (08:45)
[2018-09-15] MEDS ORDERED: IRON100V2 IV ×2 (08:45→08:50)
--- NOTE | 2018-09-15 08:53 | Discharge Summary-Hospitalist ---
Diagnosis/Chief Complaint Date of Admission Sep 07, 2018 at 23:00 Date of Discharge Discharge Date: Sep 15, 2018 Discharge Diagnosis (1) H. influenzae infection Status: Acute (2) Fever Status: Resolved (3) GI bleed Status: Resolved (4) Acute blood loss anemia Status: Acute (5) Cirrhosis Status: Acute (6) Portal hypertension Status: Acute (7) Coagulopathy Status: Acute (8) Transfusion of blood during current hospitalization Status: Acute (9) Esophageal varices Status: Acute (10) Volume overload Status: Acute (11) Edema Status: Acute (12) Wheezing Status: Resolved (13) Rales Status: Resolved Assessment & Plan: RLL (14) Pneumonia Status: Acute Discharge Summary Discharge Physical Exam Allergies: Coded Allergies: No Known Drug Allergies (Unverified , 09/07/18) Vitals & I&Os Vital Signs Date Time Temp Pulse Resp B/P (MAP) Pulse Ox O2 Delivery O2 Flow Rate FiO2 09/15/18 12:27 98 20 123/67 98 Room Air 2.00 09/15/18 08:00 96.7 General Appearance: No Apparent Distress, WD/WN, Chronically ill, Obese Respiratory: Chest Non Tender, Lungs Clear, Normal Breath Sounds, No Accessory Muscle Use, No Respiratory Distress Cardiovascular: Regular Rate, Rhythm, No Edema, No Gallop, No JVD, No Murmur, Normal Peripheral Pulses Neurologic/Psychiatric: Alert, Oriented x3, No Motor/Sensory Deficits, Normal Mood/Affect Hospital Course Hospital course: patient had a lengthy hospital course which required several days in the ICU for severe and life threatening GIB requiring multiple units of blood transfusions along with urgent EGD and Cardiology, Pulmonology and surgery consultations. Pt was stabilized with IVF and blood products with FFP and he underwent EGD which revealed severe gastritis along with esophageal varices. Pt was monitored closely and hemoglobin was monitored closely. Volume overload was managed with Lasix and had good results with loss of 20# of water weight prior to DC. IV iron was initiated with good results and hemoglobin began rising quickly. No melena persisted after initial episode but fever was noted and was pancultured and USG obtained to r/o SBP but no ascites noted so he was maintained on broad spectrum Zosyn and H. influenza was diagnosed on sputum and BCx. He was deemed stable for DC with close f/u with Daphne MorganDedra and to obtain referral to [facility] to Dr Macey Barragan for chronic liver disease management. Complete alcohol cessation was counseled and he agreed with the plan. [place] [facility] [place] and establishment of care will be initiated with me with appt at [facility] the day after DC. Labs (last 24 hrs) Microbiology 09/13/18 Blood Culture - Preliminary, Resulted Haemophilus influenza See Comments 09/13/18 Gram Stain - Final, Complete 09/13/18 Sputum Culture - Final, Complete Usual upper respiratory domonique Haemophilus influenza Patient resulted labs reviewed. Pending Labs Discussion & Recommendations Discharge Planning: <30 minutes discharge planning Discharge Home Medications: Active Scripts Active K-Tab ER (Potassium Chloride) 20 Meq Tablet.er 20 Meq PO DAILY Lasix (Furosemide) 40 Mg Tablet 40 Mg PO DAILY Venofer (Iron Sucrose Complex) 200 Mg/10 Ml Vial 200 Mg IV Q48H Protonix (Pantoprazole Sodium) 40 Mg Tablet.dr 40 Mg PO BID Spironolactone 25 Mg Tablet 25 Mg PO DAILY Lactinex Chewable Tablet (L. Acidophilus/Bulgaricus) 1 Each Tab.chew 1 Each PO ACHS Augmentin 875-125 Tablet (Amoxicillin/Potassium Clav) 1 Each Tablet 1 Each PO BID Reported Daily Multiple Vitamin (Multivitamin) 1 Each Tablet 1 Tab PO DAILY Breo Ellipta 200-25 Mcg INH (Fluticasone/Vilanterol) 1 Each Blst.w.dev 1 Puff IH DAILY Fish Oil 1,000 mg Capsule ([place] 3 Polyunsat Fatty Acids) 1,000 Mg Cap 1,000 Mg PO DAILY Vitamin D3 (Cholecalciferol (Vitamin D3)) 5,000 Unit Capsule 5,000 Unit PO DAILY Instructions to patient/family Please see electronic discharge instructions given to patient. Clinical Quality Measures DVT/VTE Risk/Contraindication: Risk Factor Score Per Nursin RFS Level Per Nursing on Admit: 3=High Problem Qualifiers (1) Fever: Fever type: unspecified Qualified Codes: R50.9 - Fever, unspecified (2) GI bleed: GI bleed type/associated pathology: unspecified gastrointestinal hemorrhage type Qualified Codes: K92.2 - Gastrointestinal hemorrhage, unspecified (3) Cirrhosis: Hepatic cirrhosis type: alcoholic cirrhosis Ascites presence: with ascites Qualified Codes: K70.31 - Alcoholic cirrhosis of liver with ascites (4) Esophageal varices: Esophageal varices type: unspecified type Esophageal varices bleeding: without bleeding Qualified Codes: I85.00 - Esophageal varices without bleeding (5) Volume overload: Hypervolemia type: unspecified Qualified Codes: E87.70 - Fluid overload, unspecified (6) Edema: Edema type: unspecified Qualified Codes: R60.9 - Edema, unspecified (7) Pneumonia: Pneumonia type: due to unspecified organism Laterality: right Lung location : lower lobe of lung Qualified Codes: J18.1 - Lobar pneumonia, unspecified organism BRENNA LIND DO Sep 15, 2018 08:53
[2018-09-15] MEDS ORDERED: methylPREDNISolone 40 MG/ML (Solu-MEDROL) VIAL IV SCH (09:00)
[2018-09-15] MEDS: IRON SUCROSE 200 MG/10 ML (VENOFER) VIAL IV SCH (09:20)
[2018-09-15] MEDS: FUROSEMIDE 40 MG/4 ML INJ (LASIX) IVP SCH (09:20)
[2018-09-15] MEDS: SPIRONOLACTONE 25 MG (ALDACTONE) TAB PO SCH (09:21)
[2018-09-15] MEDS: RT-ALBUTEROL SULF 2.5 MG/3 ML PRE-MIX VIAL INH SCH (09:59)
[2018-09-15] MEDS: RT-ADVAIR HFA 115/21 MCG PER PUFF IH SCH (10:00)
[2018-09-15] MEDS: UMECLIDINIUM BROMIDE (INCRUSE ELLIPTA) 7'S IH SCH (10:01)
[2018-09-15] MEDS ORDERED: POTA-53 PO (10:27)
[2018-09-15] MEDS ORDERED: FURO-124 PO (10:27)
--- NOTE | 2018-09-15 10:30 | Cardiology Progress Note ---
Subjective Date Seen by Provider: Sep 15, 2018 Time Seen by Provider: 10:28 Subjective/Events-last exam patient is sitting in a chair, feeling better, denied any chest pain. No palpitation, still having some cough Review of Systems General: No Chills, No Night Sweats, No Fatigue, No Malaise, No Appetite, No Other HEENT: No Head Aches, No Visual Changes, No Eye Pain, No Ear Pain, No Dysphasia , No Sinus Congestion, No Post Nasal Drip, No Sore Throat, No Other Pulmonary: No Dyspnea, No Cough, No Pleuritic Chest Pain, No Other Cardiovascular: No: Chest Pain, Palpitations, Orthopnea, Paroxysmal Noc. Dyspnea, Edema, Lt Headedness, Other Focused Exam Lactate Level 09/13/18 09:20: Lactic Acid Level 1.42 Objective-Cardiology Exam Last Set of Vital Signs Vital Signs 09/09/18 09/09/18 09/15/18 09/15/18 01:42 16:38 08:00 09:59 Temp 96.7 Pulse 98 Resp 20 B/P (MAP) 123/67 (85) Pulse Ox 98 O2 Delivery Room Air O2 Flow Rate 2.00 FiO2 2 Capillary Refill : Less Than 3 Seconds I&O Intake and Output 09/15/18 00:00 Intake Total 4360 ml Output Total 1675 ml Balance 2685 ml Intake Oral 4260 ml IV Total 100 ml Output Urine Total 1675 ml # Voids 26 # Bowel Movements 2 General: Alert, Oriented X3, Cooperative HEENT: Atraumatic, PERRLA Neck: Supple, No JVD, No Thyromegaly Lungs: Clear to Auscultation, Normal Air Movement Heart: Regular Rate, Normal S1, Normal S2, No Murmurs Abdomen: Normal Bowel Sounds, Soft, No Tenderness, No Hepatosplenomegaly, No Masses Extremities: No Clubbing, No Cyanosis, Normal Pulses, No Tenderness/Swelling, Other (+1 edema BLE) Skin: No Rashes, No Breakdown, No Significant Lesion Neuro: Normal Gait, Normal Speech, Strength at 5/5 X4 Ext, Normal Tone, Sensation Intact Psych/Mental Status: Mental Status NL, Mood NL Results Lab Laboratory Tests 09/15/18 04:42 A/P-Cardiology Admission Diagnosis Syncope Hypertension Hyperlipidemia Obesity Assessment/Plan Peptic ulcer disease, stage I esophageal varices, gastritis, managed by Dr. Colmenares Anemia, multiple transfusion, improving slowly, being discharged today, followed by primary care physician Tiffany Influenza PNA- continue antibiotics, management per Dr. Serna and hospitalist service Portal hypertension and liver cirrhosis, ultrasound did not show significant ascites. Continue to monitor Echocardiogram showed normal LV size and function with ejection fraction 60 percent, grade 1 diastolic dysfunction, aortic valve sclerosis no aortic stenosis, mild MR, PA 30-35 mmHg, continue to monitor Hypertension, controlled, monitor blood pressure Hyperlipidemia, continue to monitor lipids. Peripheral edema, continue to diurese. 2D Echo done revealed normal EF. COPD, on bronchodilator, followed and managed by Dr. Serna, was tested for sleep apnea and reported that it was negative. Obesity, BMI 42, we discussed weight loss and exercise Alcoholism, educated about limiting alcohol intake Faint bilateral carotid bruit, will evaluate carotid ultrasound as an outpatient OK to discharge from cardiology standpoint. Follow up in 2-4 weeks in our office. Clinical Quality Measures DVT/VTE Risk/Contraindication: Risk Factor Score Per Nursin RFS Level Per Nursing on Admit: 3=High JEANMARIE MARCANO MD Sep 15, 2018 10:30
[2018-09-15 12:27] VITALS: BP 123/67
== END 2018-09-15 12:15 | disposition home or self-care (01) | DRG 432 ==
LOC: ER 19:54 → ICU 23:00 → 4TH 09-10 10:29
PROVIDERS: ADMIT Family Medicine; ATTEND Internal Medicine
PROC: 0DB78ZX Excision of Stomach, Pylorus, Via Natural or Artificial Opening Endoscopic, Diagnostic (ICD-10-PCS; principal; 2018-09-08 15:43)
DX: K70.31 Alcoholic cirrhosis of liver with ascites (principal); I85.11 Secondary esophageal varices with bleeding; K29.01 Acute gastritis with bleeding; K76.6 Portal hypertension; D62 Acute posthemorrhagic anemia; E87.2 Acidosis; Z68.41 Body mass index [BMI] 40.0-44.9, adult; F10.20 Alcohol dependence, uncomplicated; J14 Pneumonia due to Hemophilus influenzae; K21.0 Gastro-esophageal reflux disease with esophagitis; K44.9 Diaphragmatic hernia without obstruction or gangrene; I10 Essential (primary) hypertension; J44.9 Chronic obstructive pulmonary disease, unspecified; E78.5 Hyperlipidemia, unspecified; E66.9 Obesity, unspecified; J30.2 Other seasonal allergic rhinitis; E87.70 Fluid overload, unspecified; I34.0 Nonrheumatic mitral (valve) insufficiency; K42.9 Umbilical hernia without obstruction or gangrene; E83.42 Hypomagnesemia; K64.1 Second degree hemorrhoids; K57.90 Diverticulosis of intestine, part unspecified, without perforation or abscess without bleeding; R09.89 Other specified symptoms and signs involving the circulatory and respiratory systems
CPT/HCPCS: 36415; 70450; 71045; 72125; 74177; 76705; 76937; 80048; 80053; 80320; 81000; 82140; 82150; 83540; 83605; 83690; 83735; 84100; 84484; 85014; 85018; 85025; 85610; 85730; 86850; 86900; 86901; 86920; 87040; 87070; 87077; 87081; 87184; 87185; 87205; 87804; 88305; 93306; 94640; 94664; 94760; 96374; 96375

== ENCOUNTER → 2018-10-27 | Outpatient (CLI) | payer BC ==
[~2018-10-27] MED LIST: ACID1TAB5 PO; AMOX-358 PO; CATHETER FLUSH 10 ML SYR IV PRN; CHOL5000 PO; FLUT1BLS IH; FURO-124 PO; HYDR25TA4 PO; IRON100V2 IV; LISI40TA PO; MULT-35 PO; OMG1KC PO; PANT40TA2 PO; POTA-53 PO; POTA99TA21 PO; REGADENOSON 0.4 MG/5 ML SYR (LEXISCAN) IV ONE; SPIR25TA5 PO
[2018-10-27 09:22] VITALS: BP 151/81
--- NOTE | 2018-10-27 11:51 | STRESS TEST ---
DATE OF SERVICE: 10/27/2018 LEXISCAN MYOVIEW STRESS TEST REPORT Baseline heart rate is 84, baseline blood pressure 151/81. Baseline EKG is sinus rhythm with no ischemic changes. In summary, the patient was injected with 10.57 mCi of technetium-99 Myoview and the resting images were obtained. Then, the patient received 0.4 mg of Lexiscan followed by 29.1 mCi of technetium-99 Myoview. Throughout the test, there were no EKG changes. The resting and stress images were reviewed and compared in the short axis, horizontal long axis, and vertical long axis views. Review of the images showed diaphragmatic attenuation with typical male pattern with no significant ischemia or infarction. SSS is 1, SDS 1, TID value 1.02. On the gated images, the left ventricle appeared to be in normal size with normal contractility. Calculated ejection fraction 63%. CONCLUSION: 1. The patient tolerated Lexiscan well. 2. No significant ischemia or infarction on SPECT images. 3. Normal left ventricular size with normal contractility. Calculated ejection fraction 63%. Job ID: [id number] DocumentID: [id number] Dictated Date: 10/27/2018 11:35:48 Supervisor Sign Shop Date: 10/27/2018 11:49:42 Dictated By: JEANMARIE MARCANO MD
== END ==
LOC: RAD 07:38
PROVIDERS: ATTEND Physician Assistant
DX: I35.8 Other nonrheumatic aortic valve disorders (principal); I10 Essential (primary) hypertension; E78.2 Mixed hyperlipidemia; K74.60 Unspecified cirrhosis of liver
CPT/HCPCS: 78452; 93017

== ENCOUNTER → 2018-12-16 | Outpatient (CLI) | payer BC ==
[~2018-12-16] MED LIST changes: -CATHETER FLUSH 10 ML SYR IV PRN; -REGADENOSON 0.4 MG/5 ML SYR (LEXISCAN) IV ONE
--- NOTE | 2018-12-16 10:59 | Diagnostic Imaging Report ---
INDICATION: Alcoholic cirrhosis. TECHNIQUE: Multiple grayscale sonographic images were obtained of the right upper quadrant of the abdomen. CORRELATION STUDY: None FINDINGS: LIVER: There is heterogeneous echotexture along with a nodular contour within the visualized portions of the liver. Liver size somewhat small 13.5 cm. There is normal directional flow of the main portal vein as well as within the hepatic veins. GALLBLADDER: No definitive shadowing gallstones. Borderline gallbladder wall thickening just under 3 mm. COMMON BILE DUCT: Largely obscured and not visualized. No overt bile duct dilatation suggested. PANCREAS: Largely obscured by overlying bowel gas. RIGHT KIDNEY: Measures 11.7 x 7.8 x 7.0 cm. No hydronephrosis. AORTA/IVC: Not well visualized. OTHER: There is presence of small amount of right upper quadrant perihepatic fluid. IMPRESSION: 1. Cirrhotic appearance about the liver without definitive focal lesion. 2. Small amount of perihepatic ascites. 3. Borderline gallbladder wall thickening likely owing to the underlying ascites and liver disease. No definitive shadowing gallstone. Dictated by: Dictated on workstation # [id number]
== END ==
LOC: RAD 06:34
PROVIDERS: ATTEND Internal Medicine
DX: K70.30 Alcoholic cirrhosis of liver without ascites (principal); K82.8 Other specified diseases of gallbladder; R18.8 Other ascites
CPT/HCPCS: 76705

== ENCOUNTER 2019-01-09 05:46 | Outpatient (CLI) | payer BC ==
[~2019-01-09] VITALS: Ht 185.4 cm; Wt 129.3 kg
[2019-01-09] MEDS ORDERED: CARV12.53 PO (12:07)
[2019-01-09] MEDS ORDERED: PANT40TA3 PO (12:07)
[2019-01-09] MEDS ORDERED: SPIR50TA4 PO (12:07)
[2019-01-09] MEDS ORDERED: MULT1CAP27 PO (12:07)
[2019-01-09] MEDS ORDERED: POTA-51 PO (12:07)
== END 2019-01-09 12:09 | disposition home or self-care (01) ==
LOC: PREOP 05:46
PROVIDERS: ATTEND Surgery
DX: Z01.818 Encounter for other preprocedural examination (principal)

== ENCOUNTER 2019-01-15 11:10 | Day surgery (SDC) | payer BC ==
[~2019-01-15] VITALS: Ht 185.4 cm; Wt 129.3 kg
[~2019-01-15 11:10] MED LIST changes: +CARV12.53 PO; +MULT1CAP27 PO; +PANT40TA3 PO; +POTA-51 PO; +SPIR50TA4 PO
[2019-01-15] MEDS ORDERED: LACTATED RINGERS 1,000 ML IV ONE (11:20)
[2019-01-15] MEDS ORDERED: LACTATED RINGERS 1,000 ML IV STA (11:21)
[2019-01-15 11:27] VITALS: BP 147/80
[2019-01-15] MEDS ORDERED: HURRICAINE EXT TUBE (BENZOCAINE) XX PRN (11:30)
[2019-01-15] MEDS ORDERED: proPOfol 200 MG/20 ML (DIPRIVAN) VIAL IV ONE (13:04)
[2019-01-15] MEDS ORDERED: MIDAZOLAM 2 MG/2 ML (VERSED) VIAL ONE ×2 (13:04→13:10)
[2019-01-15] MEDS ORDERED: HURRICAINE EXT TUBE (BENZOCAINE) ONE (13:07)
--- NOTE | 2019-01-15 13:10 | Progress Note-Pre Operative ---
Pre-Operative Progress Note H&P Reviewed The H&P was reviewed, patient examined and no changes noted. Date Seen by Provider: Jan 15, 2019 Time Seen by Provider: 13:10 Date H&P Reviewed: Jan 15, 2019 Time H&P Reviewed: 13:10 Pre-Operative Diagnosis: hx gi bleed, esophageal varices BLANCA RODRIGUEZ DO Jan 15, 2019 13:10
[2019-01-15] MEDS ORDERED: ESMOLOL 100 MG/10 ML (BREVIBLOC) VIAL ONE (13:16)
--- NOTE | 2019-01-15 13:34 | Anesthesia-General Post-Op ---
MAC Patient Condition Mental Status/LOC: Same as Preop Cardiovascular: Satisfactory Nausea/Vomiting: Absent Respiratory: Satisfactory Pain: Controlled Complications: Absent Post Op Complications Complications None Follow Up Care/Instructions Patient Instructions None needed. Anesthesiology Discharge Order Discharge Order Patient is doing well, no complaints, stable vital signs, no apparent adverse anesthesia problems. VARGAS ROBERTS DO Jan 15, 2019 13:34
[2019-01-15 13:35] VITALS: BP 134/78
--- NOTE | 2019-01-15 13:35 | Progress Note-Post Operative ---
Post-Operative Progess Note Surgeon (s)/[employer] Consultant (s) Surgeon BLANCA RODRIGUEZ DO [employer] Consultant: na Pre-Operative Diagnosis hx gi bleed, esophageal varices Post-Operative Diagnosis reactive gastropathy, small hiatal hernia, esophageal varices Procedure & Operative Findings Date of Procedure 01/15/19 Procedure Performed/Findings egd c biopsy body Anesthesia Type per mda Estimated Blood Loss Estimated blood loss (mL): scant Specimens/Packing Specimens Removed body stomach BLANCA RODRIGUEZ DO Jan 15, 2019 13:35
--- NOTE | 2019-01-15 13:40 | Discharge Inst-Simple/Standard ---
Discharge Inst-Standard Patient Instructions/Follow Up Plan of Care/Instructions/FU: 2 weeks Payal Activity as Tolerated: Yes Discharge Diet: Regular Diet BLANCA RODRIGUEZ DO Jan 15, 2019 13:40
[2019-01-15 14:05] VITALS: BP 130/69
[2019-01-15 14:15] VITALS: BP 130/69
--- NOTE | 2019-01-15 15:44 | OPERATIVE REPORT ---
DATE OF SERVICE: 01/15/2019 PREOPERATIVE DIAGNOSES: History of gastrointestinal bleed, esophageal varices. POSTOPERATIVE DIAGNOSES: Reactive gastropathy, small hiatal hernia, esophageal varices. PROCEDURE: EGD with biopsy of the body. SURGEON: Blanca Moe DO ANESTHESIA: Per MDA. ESTIMATED BLOOD LOSS: Scant. COMPLICATIONS: None. INDICATIONS: The patient is a 63-year-old male with recent history of a GI bleed, requiring hospitalization and transfusion. He understands risks and benefits of procedure and wished to proceed with procedure. Consent was signed in the chart. PROCEDURE: The patient was taken to the endoscopy suite, placed in left lateral recumbent position. Timeout was performed. Scope was inserted into the mouth, down the esophagus, stomach and into the duodenum without difficulty. There are no polyps, masses or ulcerations within the duodenum. Scope was then slowly retracted back into the stomach, which was further insufflated. Some reactive gastropathy changes around the body of the stomach. Biopsy was obtained. No other pathology noted. There were no polyps, masses or ulcerations. Scope was retroflexed noting a small hiatal hernia, no other pathology noted. Scope was returned to its normal position, slowly withdrawn to the distal esophagus began having a significant amount of esophageal varices approximately two-thirds of the esophagus. No other pathology noted. Scope was then slowly retracted until completely removed. The patient tolerated the procedure well without any complications. He was sent to recovery room in stable condition. RECOMMENDATIONS: The patient will continue to follow up with hepatology at . The patient to continue on current medications. He will follow up in office in 2 weeks. Job ID: [id number] DocumentID: [id number] Dictated Date: 01/15/2019 13:49:37 Plumbing Assembler Date: 01/15/2019 15:43:55 Dictated By: BLANCA MOE DO
== END 2019-01-15 14:15 | disposition home or self-care (01) ==
LOC: ENDO 11:10
PROVIDERS: ATTEND Surgery
DX: I85.00 Esophageal varices without bleeding (principal); K31.9 Disease of stomach and duodenum, unspecified; K44.9 Diaphragmatic hernia without obstruction or gangrene; K76.6 Portal hypertension; K74.60 Unspecified cirrhosis of liver; I10 Essential (primary) hypertension; I08.0 Rheumatic disorders of both mitral and aortic valves; J44.9 Chronic obstructive pulmonary disease, unspecified; E78.2 Mixed hyperlipidemia; G47.10 Hypersomnia, unspecified; E66.9 Obesity, unspecified; Z68.37 Body mass index [BMI] 37.0-37.9, adult; Z79.899 Other long term (current) drug therapy

== ENCOUNTER 2019-08-19 09:51 | Day surgery (SDC) | payer BC ==
[2019-08-19] VITALS (11 sets, daily range): BP systolic 107–140; BP diastolic 67–82
[~2019-08-19] VITALS: Ht 188 cm; Wt 140.7 kg
[2019-08-19] MEDS ORDERED: BUP/EPI 0.5% 1:200,000 (SENSORCAINE) 30 ML VIAL ONE (09:59)
[2019-08-19] MEDS ORDERED: ceFAZolin 2 GM IV Premixed 50 ML ONE (10:03)
[2019-08-19] MEDS ORDERED: proPOfol 200 MG/20 ML (DIPRIVAN) VIAL IV ONE ×2 (10:23→11:54)
[2019-08-19] MEDS ORDERED: ONDANSETRON 4 MG/2 ML (SDV) Z0FRAN ONE (10:23)
[2019-08-19] MEDS ORDERED: ROCURONIUM 10 MG/ML 5 ML SYRINGE IV ONE (10:23)
[2019-08-19] MEDS ORDERED: DEXAMETHASONE 10 MG/ML (DECADRON) 1 ML VIAL ONE (10:23)
[2019-08-19] MEDS ORDERED: SUCCINYLCHOLINE INJ 100 MG/5 ML SYR ONE (10:23)
[2019-08-19] MEDS ORDERED: SEVOFLURANE (ULTANE) 15 ML INHAL SOLN ONE ×2 (10:23→11:43)
[2019-08-19] MEDS ORDERED: fentaNYL INJECTION 100 MCG/2 ML AMP ONE (10:23)
[2019-08-19] MEDS ORDERED: MIDAZOLAM 2 MG/2 ML (VERSED) VIAL ONE ×2 (10:23→10:24)
[2019-08-19] MEDS: LACTATED RINGERS 1,000 ML IV PRN ×2 (10:33→11:35)
--- NOTE | 2019-08-19 10:38 | Progress Note-Pre Operative ---
Pre-Operative Progress Note H&P Reviewed The H&P was reviewed, patient examined and no changes noted. Date Seen by Provider: Aug 19, 2019 Time Seen by Provider: 10:37 Date H&P Reviewed: Aug 19, 2019 Time H&P Reviewed: 10:37 Pre-Operative Diagnosis: incarcerated umbilical hernia BLANCA RODRIGUEZ DO Aug 19, 2019 10:38 POS
[2019-08-19] MEDS ORDERED: ceFAZolin 2 GM IV Premixed 50 ML IV ONE (11:15)
[2019-08-19] MEDS ORDERED: KETOROLAC 30 MG/ML VIAL ONE (11:44)
[2019-08-19] MEDS ORDERED: HYDROmorphone 2 MG/ML VIAL (DILAUDID) ONE (11:59)
[2019-08-19] MEDS ORDERED: ONDANSETRON 4 MG/2 ML (SDV) Z0FRAN IVP PRN (12:15)
[2019-08-19] MEDS ORDERED: HYDROmorphone 2 MG/ML VIAL (DILAUDID) IV ONE (12:15)
--- NOTE | 2019-08-19 12:45 | Progress Note-Post Operative ---
Post-Operative Progess Note Surgeon (s)/[employer] Operator (s) Surgeon BLANCA RODRIGUEZ DO [employer] Operator: Tahir Pre-Operative Diagnosis incarcerated umbilical hernia Post-Operative Diagnosis same Procedure & Operative Findings Date of Procedure 08/19/19 Procedure Performed/Findings lap incarcerated umbilical hernia repair Anesthesia Type gen Estimated Blood Loss Estimated blood loss (mL): min Specimens/Packing Specimens Removed hernia contents BLANCA RODRIGUEZ DO Aug 19, 2019 12:45 POS
[2019-08-19] MEDS ORDERED: ACHD5005 PO (12:47)
[2019-08-19] MEDS ORDERED: DOCU-143 PO (12:47)
--- NOTE | 2019-08-19 12:48 | Discharge Inst-Simple/Standard ---
Discharge Inst-Standard Discharge Medications New, Converted or Re-Newed RX: RX on Chart Patient Instructions/Follow Up Plan of Care/Instructions/FU: 2-3 weeks Payal Activity as Tolerated: No Discharge Diet: Regular Diet Other Inst to Patient Follow up Appt: Make appointment for 2-3 week. Instructions: No lifting greater than 10 pounds. No strenuous activity. May shower in 24 hours, no tub bath or soaking. Use incentive spirometer at home as directed. No Smoking Skin/Wound Care: May remove bandages in 24 hours. Keep area clean and dry. Symptoms to Report: Appetite Changes, Extremity Discoloration, Numbness/Tingling, Swelling Increased, Bleeding Excessive, Eyesight Changes, Pain Increased, Urine Color Change, Constipation(Persistent), Fever over 101 degree F, Pain/Pressure in chest, Urinating Difficulty, Cough Up/Vomit Blood, Heart Beat Irreg/Pounding, Pain/Pressure in jaw, Vaginal Bleeding Increase, Cramps in feet or legs, Lightheadedness, Pain/Pressure in shoulder, Diarrhea(Persistent), Memory Changes Suddenly, Questions/Concerns, Weight gain consecutive days, Dizziness/Fainting, Nausea/Vomiting, Shortness of Breath, Weight gain over 2 pounds If questions or concerns contact your physician Or seek help at emergency department. BLANCA RODRIGUEZ DO Aug 19, 2019 12:48 POS
[2019-08-19] MEDS ORDERED: HYDROcodone/APAP 5 MG/325 MG (LORTAB) TAB ONE (13:50)
--- NOTE | 2019-08-19 23:42 | OPERATIVE REPORT ---
DATE OF SERVICE: 08/19/2019 PREOPERATIVE DIAGNOSIS: Incarcerated umbilical hernia. POSTOPERATIVE DIAGNOSIS: Incarcerated umbilical hernia. PROCEDURE: Laparoscopic incarcerated umbilical hernia repair. SURGEON: Blanca Moe DO TEST DESIGN ENGINEER: Dr. Haro, assisted in retraction, dissection and closure. ANESTHESIA: General. ESTIMATED BLOOD LOSS: Minimal. COMPLICATIONS: None. INDICATIONS: The patient is a 64-year-old male with an incarcerated umbilical hernia with erythematous changes to the soft tissues. The patient was discussed risks and benefits of procedure and wished to proceed with procedure. Consent was signed in the chart. DESCRIPTION OF PROCEDURE: The patient was taken to the operating suite, prepped and draped in sterile fashion. Timeout was performed. Local anesthetic was infiltrated in the left upper quadrant. Incision was made with 11 blade scalpel. Cautery was used to dissect down to the fascia, which was then scored. The muscle was divided bluntly and the posterior fascia was divided and the abdomen was entered. A balloon trocar was inserted and pneumoperitoneum was achieved. Scope was inserted demonstrating an incarcerated umbilical hernia of omentum. Under direct visualization of the laparoscope, a 5 mm trocar was placed in the right upper quadrant and left lower quadrant. The omentum was able to be taken down. Some of the omentum that was incarcerated had questionable viability; therefore, LigaSure was used to divide, it was placed in an Endobag and removed through the 12 mm trocar site. The umbilical area still had the feeling of some contents and nothing else was able to be visualized; therefore the skin over the umbilicus was then opened with a 15 blade scalpel. A large amount of solid clot was present with the hernia sac. This was able to be bluntly taken down. The fascia was mobilized and the fascia was then closed using 0 Vicryl in a enylwx-sh-apats fashion closing the defect. At this point, a 4 x 6 inch coated Phasix was inserted into the abdomen and grasped with a Ginette, a suture that was placed on it to hold that in place and a SecureStrap Tacker was used to tack it circumferentially and also creating an inner crown as well with adequate coverage. The abdomen was irrigated and suctioned. Hemostasis was achieved. When the mesh was in place, the abdominal pressure was decreased. At this point, the 12 mm fascial defect was closed after removing the trocar with a 0 Vicryl with a yeftir-zi-cfzum fashion. The abdomen was then completely desufflated, the trocars were removed. The skin was then closed using 4-0 Monocryl in a subcuticular fashion and the umbilical skin was stapled closed. The patient tolerated procedure well without any complications. He was taken to the recovery room in stable condition. Also of note the patient's liver did have a slightly cirrhotic appearance. Job ID: [id number] DocumentID: [id number] Dictated Date: 08/19/2019 17:33:29 Supervisor Pumping Date: 08/19/2019 23:40:30 Dictated By: BLANCA MOE DO
== END 2019-08-19 14:40 | disposition home or self-care (01) ==
LOC: SDC 09:51
PROVIDERS: ATTEND Surgery
DX: K42.0 Umbilical hernia with obstruction, without gangrene (principal); I08.0 Rheumatic disorders of both mitral and aortic valves; I10 Essential (primary) hypertension; E78.2 Mixed hyperlipidemia; D64.9 Anemia, unspecified; K76.6 Portal hypertension; J44.9 Chronic obstructive pulmonary disease, unspecified; K21.9 Gastro-esophageal reflux disease without esophagitis; E66.9 Obesity, unspecified; Z68.39 Body mass index [BMI] 39.0-39.9, adult; G47.10 Hypersomnia, unspecified; Z87.11 Personal history of peptic ulcer disease; Z80.9 Family history of malignant neoplasm, unspecified; Z82.49 Family history of ischemic heart disease and other diseases of the circulatory system; Z79.52 Long term (current) use of systemic steroids; Z79.899 Other long term (current) drug therapy
CPT/HCPCS: 87081; 94664

== ENCOUNTER 2019-10-22 13:31 | Outpatient (RCR) | payer BC ==
[~2019-10-22 13:31] MED LIST changes: +ACHD5005 PO; +DOCU-143 PO; -FLUT1BLS IH; +FLUT1BLS INH
[2019-10-27] MEDS ORDERED: POTA20TA15 PO (09:25)
[2019-10-27] MEDS ORDERED: POTA10TA36 PO (09:25)
[2019-10-27] MEDS ORDERED: FURO40TA4 PO (09:25)
[2019-10-27] MEDS ORDERED: SPIR100T4 PO (09:25)
[2019-10-27] MEDS ORDERED: CARV25TA PO (09:25)
[2019-10-27] MEDS ORDERED: BENZ-36 PO (09:25)
[2019-10-27] MEDS ORDERED: ALBU2.5V4 NEB (09:25)
== END 2019-12-17 16:00 | disposition home or self-care (01) ==
PROVIDERS: ATTEND Internal Medicine
DX: I89.0 Lymphedema, not elsewhere classified (principal)

== ENCOUNTER 2019-10-26 17:11 | Inpatient (IN) | payer BC ==
[~2019-10-26] VITALS: Ht 188 cm; Wt 147.0 kg
--- NOTE | 2019-10-26 17:20 | NUR ---
JASKARAN MARSHALL SR admitted to room , with an admitting diagnosis of CHF, on from via , accompanied by .JASKARAN MARSHALL SR introduced to surroundings, call light, bed controls, phone, TV, temperature control, lights, meal times, smoking policy, visitor policy, side rail policy, bathrooms and showers. Patient Rights given to patient in the handbook. JASKARAN MARSHALL SR verbalizes understanding that [facility] is not responsible for the loss or damage to any personal effects or valuables that are kept in the patients posession during their hospitalization. JASKARAN MARSHALL SR verbalizes understanding of Interdisciplinary Patient Education. Patient and/or family were informed about the Rapid Response Team and its purpose.
[2019-10-26] MEDS ORDERED: KCL 10 MEQ TAB (MICRO K) PO NR (17:30)
[2019-10-26] MEDS ORDERED: FUROSEMIDE 40 MG/4 ML INJ (LASIX) IVP NR (17:30)
[2019-10-26 17:36] VITALS: BP 157/68
[2019-10-26 17:50] LABS: BASOPHILS % (AUTO) 0 % (0-10); EOSINOPHILS # (AUTO) 0.2 10^3/uL (0.0-0.3); EOSINOPHILS % (AUTO) 3 % (0-10); HEMATOCRIT 35 % (40-54); HEMOGLOBIN 12.5 G/DL (13.3-17.7); LYMPHOCYTES % (AUTO) 15 % (12-44); MEAN CORPUSCULAR HEMOGLOBIN 37 PG (25-34); MEAN CORPUSCULAR HGB CONC 36 G/DL (32-36); MEAN CORPUSCULAR VOLUME 105 FL (80-99); MEAN PLATELET VOLUME 10.9 FL (7.4-10.4); MONOCYTES # (AUTO) 0.9 X 10^3 (0.0-1.0); MONOCYTES % (AUTO) 13 % (0-12); NEUTROPHILS # (AUTO) 4.5 X 10^3 (1.8-7.8); NEUTROPHILS % (AUTO) 68 % (42-75); PLATELET COUNT 51 10^3/uL (130-400); RED CELL DISTRIBUTION WIDTH 17.6 % (10.0-14.5); WHITE BLOOD COUNT 6.5 10^3/uL (4.3-11.0)
[2019-10-26 18:06] LABS: INR 1.2 (0.8-1.4); PROTHROMBIN TIME PATIENT 16.1 SEC (12.2-14.7)
[2019-10-26 18:12] LABS: ALANINE AMINOTRANSFERASE 67 U/L (0-55); ALBUMIN 2.5 GM/DL (3.2-4.5); ALKALINE PHOSPHATASE 158 U/L (40-136); BILIRUBIN,TOTAL 3.1 MG/DL (0.1-1.0); BUN/CREATININE RATIO 14; CARBON DIOXIDE 20 MMOL/L (21-32); CHLORIDE 98 MMOL/L (98-107); CREATININE SERUM 0.71 MG/DL (0.60-1.30); GFR ESTIMATED > 60; GLUCOSE 102 MG/DL (70-105); MAGNESIUM 1.4 MG/DL (1.6-2.4); POTASSIUM 4.1 MMOL/L (3.6-5.0); SODIUM 127 MMOL/L (135-145); TOTAL PROTEIN 6.1 GM/DL (6.4-8.2)
[2019-10-26] MEDS: ENOXAPARIN 40 MG/0.4 ML (LOVENOX) SYR SC SCH (18:45)
--- NOTE | 2019-10-26 19:37 | Diagnostic Imaging Report ---
INDICATION: Recent pneumonia, abnormal breath sounds. PA and lateral chest obtained at 07:28 p.m. and compared to 09/13/2018. Heart and mediastinal silhouette are normal in appearance. There are mild chronic-appearing increased interstitial markings. There is no acute consolidation, pneumothorax, or pleural fluid. IMPRESSION: Mild chronic changes with no acute process in the chest. Dictated by: Dictated on workstation # [id number]
[2019-10-26 19:51] LABS: BILIRUBIN,URINE NEGATIVE (NEGATIVE); CLARITY,URINE CLEAR; COLOR,URINE YELLOW; GLUCOSE, URINE (UA) NEGATIVE (NEGATIVE); KETONES,URINE NEGATIVE (NEGATIVE); LEUKOCYTE ESTERASE ,URINE NEGATIVE (NEGATIVE); NITRITE,URINE NEGATIVE (NEGATIVE); PROTEIN,URINE NEGATIVE (NEGATIVE)
[2019-10-26 20:00] VITALS: BP 126/60
[2019-10-26 20:07] LABS: BACTERIA,URINE NEGATIVE /HPF
[2019-10-26] MEDS ORDERED: LORazepam 0.5 MG (ATIVAN) TABLET ONE (21:32)
--- NOTE | 2019-10-26 21:34 | Progress Note ---
Progress Note Pt is a 64-year-old M presenting for a 1-week f/u. Pt still has his cough but is only coughing up the white stuff. I stated this has turned into a little bit of heart failure. Pt was given fluid to help kidneys and the fluid has been hard to get off using pills. I stated that IV would help get it out. Pt stated that he has been urinating, because of Lasix he is taking, a lot but it does not seem to make a difference. I stated that this seems to have turned more into a cardiac situation. I stated the lymphedema ladies would like for the fluids to get out of his legs. Pt will be admitted into [facility] for the IV. Pt will go in today, work on everything tomorrow, and see how he is on Saturday. Pt asked if he could go tomorrow morning, but I stated that it would be best to do tonight. Pt had compression socks on until 3:30 today. I stated this is residual from mycoplasma. Physical Examination: Pt's legs are swollen and pt stated he does feel like they are bloated. Pt's lungs are stable. Labs: Pt's kidney function was fine. Pt's liver was fine. Pt's platelets were at 50. Pt's white count was normal. Pt's nutrition marker was at 2.6. Scribed by: Clarita Blackburn. BRENNA LIND DO Oct 26, 2019 21:34
[2019-10-26] MEDS: BENZONATATE 100 MG (TESSALON) CAPSULE PO PRN (21:43)
[2019-10-26] MEDS: guaiFENesin/CODEINE (ROBITUSSIN AC) 10ML UDC PO PRN (21:43)
[2019-10-26] MEDS: LORazepam 0.5 MG (ATIVAN) TABLET PO SCH (21:44)
[2019-10-27] VITALS: BP 118/56
[2019-10-27 04:00] VITALS: BP 128/73
[2019-10-27] MEDS: ENOXAPARIN 40 MG/0.4 ML (LOVENOX) SYR SC SCH ×2 (06:06→18:02)
[2019-10-27] MEDS: KCL 10 MEQ TAB (MICRO K) PO SCH (06:06)
[2019-10-27] MEDS: FUROSEMIDE 40 MG/4 ML INJ (LASIX) IVP SCH ×2 (06:07→16:18)
[2019-10-27 07:15] LABS: BASOPHILS % (AUTO) 0 % (0-10); EOSINOPHILS # (AUTO) 0.2 10^3/uL (0.0-0.3); EOSINOPHILS % (AUTO) 4 % (0-10); HEMATOCRIT 35 % (40-54); HEMOGLOBIN 12.2 G/DL (13.3-17.7); LYMPHOCYTES # (AUTO) 1.4 X 10^3 (1.0-4.0); LYMPHOCYTES % (AUTO) 21 % (12-44); MEAN CORPUSCULAR HEMOGLOBIN 37 PG (25-34); MEAN CORPUSCULAR HGB CONC 35 G/DL (32-36); MEAN CORPUSCULAR VOLUME 105 FL (80-99); MEAN PLATELET VOLUME 10.3 FL (7.4-10.4); MONOCYTES # (AUTO) 0.9 X 10^3 (0.0-1.0); MONOCYTES % (AUTO) 14 % (0-12); NEUTROPHILS # (AUTO) 3.9 X 10^3 (1.8-7.8); NEUTROPHILS % (AUTO) 61 % (42-75); PLATELET COUNT 52 10^3/uL (130-400); RED CELL DISTRIBUTION WIDTH 17.9 % (10.0-14.5); WHITE BLOOD COUNT 6.5 10^3/uL (4.3-11.0)
[2019-10-27 07:39] LABS: ALANINE AMINOTRANSFERASE 66 U/L (0-55); ALBUMIN 2.6 GM/DL (3.2-4.5); ALKALINE PHOSPHATASE 149 U/L (40-136); BILIRUBIN,TOTAL 2.8 MG/DL (0.1-1.0); BUN/CREATININE RATIO 15; CALCIUM 8.2 MG/DL (8.5-10.1); CARBON DIOXIDE 22 MMOL/L (21-32); CHLORIDE 97 MMOL/L (98-107); CREATININE SERUM 0.68 MG/DL (0.60-1.30); GFR ESTIMATED > 60; GLUCOSE 115 MG/DL (70-105); SODIUM 128 MMOL/L (135-145); TOTAL PROTEIN 5.8 GM/DL (6.4-8.2)
[2019-10-27 07:52] VITALS: BP 130/68
[2019-10-27] MEDS ORDERED: CARV25TA PO (09:25)
[2019-10-27] MEDS ORDERED: BENZ-36 PO (09:25)
[2019-10-27] MEDS ORDERED: SPIR100T4 PO (09:25)
[2019-10-27] MEDS ORDERED: FURO40TA4 PO (09:25)
[2019-10-27] MEDS ORDERED: POTA10TA36 PO (09:25)
[2019-10-27] MEDS ORDERED: POTA20TA15 PO (09:25)
[2019-10-27] MEDS ORDERED: ALBU2.5V4 NEB (09:25)
--- NOTE | 2019-10-27 09:29 | NUR ---
SPOKE WITH THE PATIENT ABOUT HIS MEDICATIONS. WE WENT OVER THE EXT MED HX. HE FILLED LASIX 40MG QOD #30 FOR 60 DAYS 10-20-19 - HE STATES HE IS CURRENTLY TAKING IT EVERY DAY. HE FILLED COREG 25MG BID #180 FOR 90 DAYS HOWEVER STATES HE NOW TAKES 1/2 TAB BID. HE HAS FILLED BOTH POTASSIUM 10MEQ AND POTASSIUM 20MEQ - HE STATES HE TAKES THE 20MEQ EVERY DAY AND THE 10MEQ ON DAYS HE TAKES FUROSEMIDE WHICH AT THIS TIME IS DAILY. HE TAKES VITAMIN D AND MTV DAILY
--- NOTE | 2019-10-27 09:30 | NUR ---
WIDE GURJIT WRAP APPLIED TO LOWER LEGS PER DR. OWENS REQUEST. LOWER EXT WITH 2 + PITTING EDEMA.
[2019-10-27 11:03] VITALS: BP 131/58
--- NOTE | 2019-10-27 11:57 | History & Physical-Hospitalist ---
JOSIE BROTHERS,MED STUDENT 10/27/19 1157: History of Present Illness HPI/Chief Complaint Pt presented to Dr[facility] for 1 week follow up. Pt has history of heart failure and has been attempting to control edema with oral lasix. Pt no longer able to adequately control with oral lasix so Dr. Lind admitted pt for IV diuretic therapy. Source: patient Exam Limitations: no limitations Date Seen 10/27/19 Time Seen by a Provider: 08:26 Attending Physician Tonie Lind DO PCP Tonie Lind DO Referring Physician Date of Admission Oct 26, 2019 at 17:26 Home Medications & Allergies Home Medications Reviewed patient Home Medication Reconciliation performed by pharmacy medication reconciliations technical support technician and/or nursing. Patients Allergies have been reviewed. Allergies Allergies Coded Allergies No Known Drug Allergies (Vadicwjlkd64/25/18) Past Rkekrdn-Ittrzx-Aeahrg Hx Patient Social History Alcohol Use: Occasionally Uses Number of Drinks Today: AA Alcohol Beverage of Choice: Beer Recreational Drug Use: No 2nd Hand Smoke Exposure: No Physical Abuse Screen: No Sexual Abuse: No Recent Foreign Travel: No Contact w/other who traveled: No Recent Hopitalizations: No Recent Infectious Disease Expo: No Immunizations Up To Date Tetanus Booster (TDap): Unknown Date of Influenza Vaccine: Aug 14, 2019 Seasonal Allergies Seasonal Allergies: Yes Past Medical History Surgeries: Orthopedic Currently Using CPAP: No Currently Using BIPAP: No Cardiac: Hypertension History of Blood Disorders: No Adverse Reaction to Blood Humphries: No Family History Patient reports no known family medical history. Review of Systems Constitutional: No chills, No fever EENTM: No hearing loss, No ear pain, No eye pain, No vision loss Respiratory: see HPI, cough, dyspnea on exertion, short of breath Cardiovascular: No chest pain; edema; No Hx of Intervention, No palpitations Gastrointestinal: No abdominal pain, No constipation, No diarrhea, No nausea, No vomiting Genitourinary: frequency (due to lasix therapy ); No incontinence Physical Exam Physical Exam Vital Signs Vital Signs - First Documented 10/26/19 17:36 Temp 36.6 Pulse 73 Resp 22 B/P (MAP) 157/68 Pulse Ox 97 O2 Delivery Room Air Capillary Refill : Less Than 3 SecondsLess Than 3 Seconds Height, Weight, BMI Height: 6'1.00" Weight: 285lbs. 0.0oz. 129.140621mc; 42.46 BMI Method:Stated General Appearance: No Apparent Distress, WD/WN HEENT: Pharynx Normal, Moist Mucous Membranes Neck: Non Tender, Supple Respiratory: Chest Non Tender, Normal Breath Sounds, No Accessory Muscle Use, No Respiratory Distress, Crackles (mild, diffuse ) Cardiovascular: Regular Rate, Rhythm, No Gallop, No Murmur Extremity: No Calf Tenderness, Pedal Edema (+3 pitting ) Neurologic/Psychiatric: Alert, Oriented x3 Skin: Normal Color, Warm/Dry Results Results/Procedures Labs Laboratory Tests 10/26/19 17:46 10/27/19 06:25 Patient resulted labs reviewed. Assessment/Plan Admission Diagnosis Acute exacerbation chronic heart failure Admission Status: Observation Assessment and Plan Assessment Acute exacerbation of chronic heart failure hyponatremia LE edema pulmonary edema Plan IV lasix therapy GURJIT wrap and elevate LE Cardiac diet Abdominal USG today at 1700 Clinical Quality Measures DVT/VTE Risk/Contraindication: Risk Factor Score Per Nursin RFS Level Per Nursing on Admit: 4+=Very High TONIE LIND DO 10/27/192101: History of Present Illness HPI/Chief Complaint CC: Anasarca with ascites HPI: This is a 64yoWM with Alpha 1 Antitrypsin Deficiency with subsequent cirrhosis managed up at and [facility] who presented to the hospital as a direct admission due to anasarca. Dr. Serrano was consulted, echocardiogram ordered, Lasix given, wide GURJIT wraps provided compression therapy, and pt is already feeling much better. Urinary output has been impressive. Abdominal ultrasound will be evaluated for any ascites. Past Ymwbnjv-Frguko-Bupzpn Hx Past Med/Social Hx: Reviewed Nursing Past Med/Soc Hx, Reviewed and Corrections made Patient Social History Marrital Status: Employed/Student: employed Smoking Status: Former Smoker Past Medical History Respiratory: Asthma, COPD alpha-1 antitrypsin def Cardiac: Hypertension Gastrointestinal: Cirrhosis Family History Patient reports no known family medical history. Review of Systems Constitutional: see HPI Respiratory: cough Cardiovascular: edema Physical Exam Physical Exam General Appearance: No Apparent Distress, Chronically ill, Obese Respiratory: Lungs Clear, Decreased Breath Sounds Extremity: Pedal Edema (+3 pitting ) Neurologic/Psychiatric: Alert, Oriented x3, No Motor/Sensory Deficits, Normal Mood/Affect Assessment/Plan Admission Diagnosis Assessment: Ascites Volume overload Anasarca failed PO diuretics Cough with pulmonary edema Alpha 1-antitrypsin def Cirrhosis Hyponatremia Plan: IV Lasix Potassium USG ECHO Dr Maggie Moe Admission Status: Inpatient Order (span 2 midnights) Reason for Inpatient Admission: Ascites failed outpatient PO diuretics Diagnosis/Problems Diagnosis/Problems (1) Ascites (2) COPD (chronic obstructive pulmonary disease) (3) Alpha 1-antitrypsin PiMS phenotype (4) Hyponatremia (5) Abnormal liver enzymes (6) Anasarca (7) Cirrhosis Status: Acute (8) Coagulopathy Status: Acute (9) Portal hypertension Status: Acute (10) Esophageal varices Status: Acute Supervisory-Addendum Brief Verification & Attestation Participated in pt care: history, MDM, physical Personally performed: exam, history, MDM, supervision of care Care discussed with: Medical Student Procedures: n/a Results interpretation: Verified all documentation Verification and Attestation of Medical Student E/M Service A medical student performed and documented this service in my presence. I reviewed and verified all information documented by the medical student and made modifications to such information, when appropriate. I personally performed the physical exam and medical decision making. Tonie Lind, Oct 27, 2019,21:02 JOSIE BROTHERS,MED STUDENT Oct 27, 2019 11:57 TONIE LIND DO Oct 27, 2019 21:02
--- NOTE | 2019-10-27 15:07 | Diagnostic Imaging Report ---
PROCEDURE: US Abdomen, limited. TECHNIQUE: Multiple real-time grayscale images were obtained over the abdomen in various projections. INDICATION: Ascites. FINDINGS: All four quadrants of the abdomen were evaluated. There is moderate perihepatic free fluid present. No significant free fluid in the left upper quadrant is identified. Minimal free fluid in the left lower quadrant is identified. There is fheo-uy-qghlgyrz free fluid in the right lower quadrant. IMPRESSION: Ascites, greatest right side of the abdomen, as described. Dictated by: Dictated on workstation # [id number]
[2019-10-27] MEDS: guaiFENesin/CODEINE (ROBITUSSIN AC) 10ML UDC PO PRN ×2 (15:11→21:55)
[2019-10-27] MEDS: BENZONATATE 100 MG (TESSALON) CAPSULE PO PRN ×2 (15:11→21:55)
[2019-10-27 15:58] VITALS: BP 121/66
--- NOTE | 2019-10-27 15:59 | Consultation-Cardiology ---
HPI-Cardiology Cardiology Consultation Date of Consultation 10/27/19 Date of Admission Time Seen by Provider: 15:54 Indication: Anasarca HPI 64-year-old gentleman with history of alpha-1 antitrypsin deficiency. Has been having increasing peripheral edema and increasing abdominal girth. Shortness of breath. Denied any chest pain. No palpitation. Failed oral diuretic treatment as an outpatient, has been having progressive shortness of breath and edema. Admitted for aggressive diuresis and workup for his anasarca Home Medications & Allergies Allergies: Coded Allergies: No Known Drug Allergies (Unverified , 09/07/18) Home Medication List Reviewed: Yes FAP-Wjzecc-Zpodgb Hx Patient Social History Marital Status: Employed/Student: retired Alcohol Use: Occasionally Uses Recreational Drug Use: No 2nd Hand Smoke Exposure: No Recent Foreign Travel: No Recent Infectious Disease Expo: No Recent Hopitalizations: No Physical Abuse Screen: No Sexual Abuse: No Immunizations Up To Date Tetanus Booster (TDap): Unknown Date of Influenza Vaccine: Aug 14, 2019 Past Medical History Discussed below Family Medical History Family History: Patient reports no known family medical history. Review of Systems-General Review of Systems Constitutional: No chills, No fever; malaise, weakness EENTM: No hearing loss, No ear pain, No eye pain, No vision loss Respiratory: see HPI, cough, dyspnea on exertion, short of breath Cardiovascular: see HPI; No chest pain; edema; No Hx of Intervention, No palpitations Gastrointestinal: see HPI; No abdominal pain, No constipation, No diarrhea, No nausea, No vomiting; other (Abdominal distention) Genitourinary: no symptoms reported, see HPI, frequency (due to lasix therapy ); No incontinence Musculoskeletal: no symptoms reported, see HPI Skin: no symptoms reported, see HPI Psychiatric/Neurological: No Symptoms Reported, See HPI Reviewed Test Results Reviewed Test Results Lab Laboratory Tests Test 10/26/19 17:46 10/26/19 19:15 10/27/19 05:28 10/27/19 06:25 Range/Units White Blood Count 6.5 6.5 4.3-11.0 10^3/uL Red Blood Count 3.34 L 3.31 L 4.35-5.85 10^6/uL Hemoglobin 12.5 L 12.2 L 13.3-17.7 G/DL Hematocrit 35 L 35 L 40-54 % Mean Corpuscular Volume 105 H 105 H 80-99 FL Mean Corpuscular Hemoglobin 37 H 37 H 25-34 PG Mean Corpuscular Hemoglobin Concent 36 35 32-36 G/DL Red Cell Distribution Width 17.6 H 17.9 H 10.0-14.5 % Platelet Count 51 L 52 L 130-400 10^3/uL Mean Platelet Volume 10.9 H 10.3 7.4-10.4 FL Neutrophils (%) (Auto) 68 61 42-75 % Lymphocytes (%) (Auto) 15 21 12-44 % Monocytes (%) (Auto) 13 H 14 H 0-12 % Eosinophils (%) (Auto) 3 4 0-10 % Basophils (%) (Auto) 0 0 0-10 % Neutrophils # (Auto) 4.5 3.9 1.8-7.8 X 10^3 Lymphocytes # (Auto) 1.0 1.4 1.0-4.0 X 10^3 Monocytes # (Auto) 0.9 0.9 0.0-1.0 X 10^3 Eosinophils # (Auto) 0.2 0.2 0.0-0.3 10^3/uL Basophils # (Auto) 0.0 0.0 0.0-0.1 10^3/uL Prothrombin Time 16.1 H 12.2-14.7 SEC INR Comment 1.2 0.8-1.4 Sodium Level 127 L 128 L 135-145 MMOL/L Potassium Level 4.1 4.0 3.6-5.0 MMOL/L Chloride Level 98 97 L 98-107 MMOL/L Carbon Dioxide Level 20 L 22 21-32 MMOL/L Anion Gap 9 9 5-14 MMOL/L Blood Urea Nitrogen 10 10 7-18 MG/DL Creatinine 0.71 0.68 0.60-1.30 MG/DL Estimat Glomerular Filtration Rate > 60 > 60 BUN/Creatinine Ratio 14 15 Glucose Level 102 115 H 70-105 MG/DL Calcium Level 8.0 L 8.2 L 8.5-10.1 MG/DL Corrected Calcium 9.2 9.3 8.5-10.1 MG/DL Magnesium Level 1.4 L 1.6-2.4 MG/DL Total Bilirubin 3.1 H 2.8 H 0.1-1.0 MG/DL Aspartate Amino Transf (AST/SGOT) 90 H 85 H 5-34 U/L Alanine Aminotransferase (ALT/SGPT) 67 H 66 H 0-55 U/L Alkaline Phosphatase 158 H 149 H 40-136 U/L Troponin I < 0.028 <0.028 NG/ML B-Type Natriuretic Peptide 130.9 H <100.0 PG/ML Total Protein 6.1 L 5.8 L 6.4-8.2 GM/DL Albumin 2.5 L 2.6 L 3.2-4.5 GM/DL Urine Color YELLOW Urine Clarity CLEAR Urine pH 7.0 5-9 Urine Specific [place] <=1.005 1.016-1.022 Urine Protein NEGATIVE NEGATIVE Urine Glucose (UA) NEGATIVE NEGATIVE Urine Ketones NEGATIVE NEGATIVE Urine Nitrite NEGATIVE NEGATIVE Urine Bilirubin NEGATIVE NEGATIVE Urine Urobilinogen 0.2 < = 1.0 MG/DL Urine Leukocyte Esterase NEGATIVE NEGATIVE Urine RBC (Auto) NEGATIVE NEGATIVE Urine RBC NONE /HPF Urine WBC NONE /HPF Urine Crystals NONE /LPF Urine Bacteria NEGATIVE /HPF Urine Casts NONE /LPF Urine Mucus NEGATIVE /LPF Urine Culture Indicated NO Glucometer 129 H 70-110 MG/DL Physical Exam Physical Exam Vital Signs Vital Signs - First Documented 10/26/19 17:36 Temp 36.6 Pulse 73 Resp 22 B/P (MAP) 157/68 Pulse Ox 97 O2 Delivery Room Air Capillary Refill : Less Than 3 SecondsLess Than 3 Seconds Height, Weight, BMI Height: 6'1.00" Weight: 285lbs. 0.0oz. [id number]; 42.46 BMI Method:Stated General Appearance: No Apparent Distress, WD/WN HEENT: Pharynx Normal, Moist Mucous Membranes Neck: Non Tender, Supple Respiratory: Chest Non Tender, Normal Breath Sounds, No Accessory Muscle Use, No Respiratory Distress, Crackles (mild, diffuse ), Wheezing Cardiovascular: Regular Rate, Rhythm, No Gallop, No Murmur Gastrointestinal: Abnormal Bowel Sounds, Distended Back: Normal Inspection, No CVA Tenderness Extremity: Normal Capillary Refill, No Calf Tenderness, Pedal Edema (+3 pitting ) Neurologic/Psychiatric: Alert, Oriented x3 Skin: Normal Color, Warm/Dry A/P-Cardiology Admission Diagnosis Anasarca Hepatic cirrhosis Congestive heart failure, acute on chronic left ventricular diastolic dysfunction, normal systolic function, hypertensive heart disease Hypertension Assessment/Plan Anasarca, multifactorial, increasing pedal edema and increasing abdominal girth. Ultrasound showed ascites, mild to moderate in size. Receiving aggressive diuresis. Continue to monitor Questionable congestive heart failure, history of grade 1 diastolic dysfunction, planning to repeat 2-D echocardiogram. Portal hypertension liver cirrhosis, history of alpha-1 antitrypsin deficiency. Managed and followed by primary care physician History of anemia, multiple blood transfusion, peptic ulcer disease with esophageal paresis and gastritis. Followed by primary care physician Hypertension, monitor blood pressure Hyperlipidemia, continue to monitor lipids Shortness of breath, bronchial wheezing, history of COPD. History of alcoholism. History of bilateral carotid stenosis. Continue to monitor as an outpatient Clinical Quality Measures DVT/VTE Risk/Contraindication: Risk Factor Score Per Nursin RFS Level Per Nursing on Admit: 4+=Very High JEANMARIE MARCANO MD Oct 27, 2019 15:59
[2019-10-27 19:02] VITALS: BP 136/65
[2019-10-27] MEDS ORDERED: RT-ALBUTEROL SULF 2.5 MG/3 ML PRE-MIX VIAL INH PRN (21:15)
[2019-10-27] MEDS ORDERED: BENZONATATE 100 MG (TESSALON) CAPSULE PO PRN (21:15)
[2019-10-28 00:11] VITALS: BP 127/67
[2019-10-28 03:13] VITALS: BP 131/68
[2019-10-28 04:45] LABS: BASOPHILS % (AUTO) 0 % (0-10); EOSINOPHILS # (AUTO) 0.3 10^3/uL (0.0-0.3); EOSINOPHILS % (AUTO) 5 % (0-10); HEMATOCRIT 31 % (40-54); HEMOGLOBIN 11.4 G/DL (13.3-17.7); LYMPHOCYTES # (AUTO) 1.2 X 10^3 (1.0-4.0); LYMPHOCYTES % (AUTO) 23 % (12-44); MEAN CORPUSCULAR HEMOGLOBIN 38 PG (25-34); MEAN CORPUSCULAR HGB CONC 36 G/DL (32-36); MEAN CORPUSCULAR VOLUME 105 FL (80-99); MEAN PLATELET VOLUME 10.6 FL (7.4-10.4); MONOCYTES # (AUTO) 0.8 X 10^3 (0.0-1.0); MONOCYTES % (AUTO) 16 % (0-12); NEUTROPHILS # (AUTO) 2.9 X 10^3 (1.8-7.8); NEUTROPHILS % (AUTO) 56 % (42-75); PLATELET COUNT 60 10^3/uL (130-400); RED CELL DISTRIBUTION WIDTH 17.8 % (10.0-14.5); WHITE BLOOD COUNT 5.3 10^3/uL (4.3-11.0)
[2019-10-28 05:01] LABS: INR 1.1 (0.8-1.4); PROTHROMBIN TIME PATIENT 14.3 SEC (12.2-14.7)
[2019-10-28 05:05] LABS: ALANINE AMINOTRANSFERASE 55 U/L (0-55); ALBUMIN 2.3 GM/DL (3.2-4.5); ALKALINE PHOSPHATASE 143 U/L (40-136); BILIRUBIN,TOTAL 2.2 MG/DL (0.1-1.0); BUN/CREATININE RATIO 13; CALCIUM 7.9 MG/DL (8.5-10.1); CARBON DIOXIDE 24 MMOL/L (21-32); CHLORIDE 98 MMOL/L (98-107); CREATININE SERUM 0.71 MG/DL (0.60-1.30); GFR ESTIMATED > 60; GLUCOSE 165 MG/DL (70-105); POTASSIUM 4.1 MMOL/L (3.6-5.0); SODIUM 130 MMOL/L (135-145); TOTAL PROTEIN 5.4 GM/DL (6.4-8.2)
[2019-10-28] MEDS: guaiFENesin/CODEINE (ROBITUSSIN AC) 10ML UDC PO PRN ×2 (05:52→19:56)
--- NOTE | 2019-10-28 06:28 | Consultation - Surgery ---
YARIEL COLBERT,MED STUDENT 10/28/19 0628: History of Present Illness History of Present Illness Patient Consulted On(ewa/time) 10/28/19 06:23 Date Seen by Provider: Oct 28, 2019 Time Seen by Provider: 06:23 Reason for Visit: Anasarca History of Present Illness GI consult for ascites Patient is a 64 y/o males with a history of alpha 1 antitrypsin deficiency and heart failure. He presented to Dr. Prieto's office yesterday for 1 week follow up with worsening LE edema that did not improve with oral lasix. Dr. Prieto admitted pt fr IV diuretic therapy. Abdomen U/S showed ascites in all 4 quadrants of abdomen. While talking to patient he said that he was in the hospital around [place] for pneumonia and since then he has had trouble with fluid retention. Today patient says that he is feeling good and that his edema has improved a lot since yesterday. Allergies and Home Medications Allergies Coded Allergies: No Known Drug Allergies (Unverified , 09/07/18) Home Medications Albuterol Sulfate 2.5 Mg/3 Ml Vial.neb, 2.5 MG NEB QID PRN for SHORTNESS OF BREATH, (Reported) Benzonatate 100 Mg Capsule, 100 MG PO TID PRN for COUGH, (Reported) Carvedilol 25 Mg Tablet, 12.5 MG PO BID, (Reported) TAKES 1/2 (25MG) TABLET Cholecalciferol (Vitamin D3) 5,000 Unit Capsule, 5,000 UNIT PO DAILY, (Reported) Fluticasone/Vilanterol 1 Each Blst.w.dev, 1 PUFF INH DAILY, (Reported) Furosemide 40 Mg Tablet, 40 MG PO DAILY, (Reported) Multivitamin 1 Each Capsule, 1 CAP PO DAILY, (Reported) Pantoprazole Sodium 40 Mg Tablet.dr, 40 MG PO BID, (Reported) Potassium Chloride 20 Meq Tab.er.prt, 20 MEQ PO DAILY, (Reported) Potassium Chloride 10 Meq Tab.er.prt, 10 MEQ PO DAILY, (Reported) Spironolactone 100 Mg Tablet, 100 MG PO DAILY, (Reported) Past Ddjwpkh-Atjxso-Gdfarc Hx Patient Social History Alcohol Use: Occasionally Uses Number of Drinks Today: AA Recreational Drug Use: No Smoking Status: Former Smoker 2nd Hand Smoke Exposure: No Recent Foreign Travel: No Contact w/Someone Who Travel: No Recent Infectious Disease Expo: No Recent Hopitalizations: No Physical Abuse Screen: No Sexual Abuse: No Immunizations Up To Date Tetanus Booster (TDap): Unknown Date of Influenza Vaccine: Aug 14, 2019 Seasonal Allergies Seasonal Allergies: Yes Surgeries History of Surgeries: Yes Surgeries: Orthopedic Respiratory History of Respiratory Disorde: Yes Respiratory Disorders: COPD (Alpha 1 anti-trypsin deficency ) Cardiovascular History of Cardiac Disorders: No Cardiac Disorders: Hypertension Neurological History of Neurological Disord: No Genitourinary History of Genitourinary Disor: No Gastrointestinal History of Gastrointestinal Di: Yes (esophageal varices) Gastrointestinal Disorders: Abdominal Hernia (umbilical hernia that was repaired by Dr. Moe ), Liver Disease/Jaundice (alpha 1 anti-trypsin deficency ), Cirrhosis Musculoskeletal History of Musculoskeletal Dis: No Endocrine History of Endocrine Disorders: No HEENT History of HEENT Disorders: No Cancer History of Cancer: No Psychosocial History of Psychiatric Problem: No Integumentary History of Skin or Integumenta: No Blood Transfusions History of Blood Disorders: No Adverse Reaction to a Blood Tr: No Family Medical History Significant Family History: No Pertinent Family Hx Family Medial History: Patient reports no known family medical history. Review of Systems-General Constitutional: No chills, No fever, No weakness EENTM: nose congestion; No mouth pain, No mouth swelling, No throat pain, No throat swelling Respiratory: cough, dyspnea on exertion; No hemoptysis; phlegm (clear ), wheezing Cardiovascular: No chest pain; edema; No Hx of Intervention, No palpitations Gastrointestinal: No abdominal pain, No constipation, No diarrhea, No dysphagia, No hematemesis, No loss of appetite, No melena, No nausea, No vomiting Genitourinary: No decreased output, No dysuria, No frequency, No hematuria Musculoskeletal: joint swelling (noticed when he gets retains fluid (edema) ); No muscle pain, No muscle stiffness, No muscle twitching, No muscle weakness Skin: No lesions, No pruritus, No rash Psychiatric/Neurological: Denies Anxiety, Denies Depressed, Denies Numbness Physical Exam-General Problems Physical Exam Vital Signs Vital Signs - First Documented 10/26/19 17:36 Temp 36.6 Pulse 73 Resp 22 B/P (MAP) 157/68 Pulse Ox 97 O2 Delivery Room Air Capillary Refill : Less Than 3 SecondsLess Than 3 Seconds General Appearance: WD/WN, no apparent distress, obese HEENT: PERRL/EOMI; No scleral icterus (R), No scleral icterus (L), No pale conjunctivae (R), No pale conjunctivae (L) Neck: non-tender, supple, normal inspection; No lymphadenopathy (R), No lymphadenopathy (L) Respiratory: chest non-tender, no respiratory distress, no accessory muscle use, rhonchi, wheezing Cardiovascular: regular rate, rhythm, no murmur Gastrointestinal: normal bowel sounds, non tender, soft, no organomegaly, no pulsatile mass, distended Extremities: No no calf tenderness; pedal edema Neurologic/Psychiatric: alert, normal mood/affect, oriented x 3 Skin: normal color, warm/dry Data Review Labs Laboratory Tests 10/27/19 06:25: White Blood Count 6.5, Red Blood Count 3.31L, Hemoglobin 12.2L, Hematocrit 35L, Mean Corpuscular Volume 105H, Mean Corpuscular Hemoglobin 37H, Mean Corpuscular Hemoglobin Concent 35, Red Cell Distribution Width 17.9H, Platelet Count 52L, Mean Platelet Volume 10.3, Neutrophils (%) (Auto) 61, Lymphocytes (%) (Auto) 21, Monocytes (%) (Auto) 14H, Eosinophils (%) (Auto) 4, Basophils (%) (Auto) 0, Neutrophils # (Auto) 3.9, Lymphocytes # (Auto) 1.4, Monocytes # (Auto) 0.9, Eosinophils # (Auto) 0.2, Basophils # (Auto) 0.0, Sodium Level 128L, Potassium Level 4.0, Chloride Level 97L, Carbon Dioxide Level 22, Anion Gap 9, Blood Urea Nitrogen 10, Creatinine 0.68, Estimat Glomerular Filtration Rate > 60, BUN/Creatinine Ratio 15, Glucose Level 115H, Calcium Level 8.2L, Corrected Calcium 9.3, Total Bilirubin 2.8H, Aspartate Amino Transf (AST/SGOT) 85H, Alanine Aminotransferase (ALT/SGPT) 66H, Alkaline Phosphatase 149H, Total Protein 5.8L, Albumin 2.6L 10/28/19 04:20: Prothrombin Time 14.3, INR Comment 1.1 10/28/19 04:25: White Blood Count 5.3, Red Blood Count 2.99L, Hemoglobin 11.4L, Hematocrit 31L, Mean Corpuscular Volume 105H, Mean Corpuscular Hemoglobin 38H, Mean Corpuscular Hemoglobin Concent 36, Red Cell Distribution Width 17.8H, Platelet Count 60L, Me an Platelet Volume 10.6H, Neutrophils (%) (Auto) 56, Lymphocytes (%) (Auto) 23, Monocytes (%) (Auto) 16H, Eosinophils (%) (Auto) 5, Basophils (%) (Auto) 0, Neutrophils # (Auto) 2.9, Lymphocytes # (Auto) 1.2, Monocytes # (Auto) 0.8, Eosinophils # (Auto) 0.3, Basophils # (Auto) 0.0, Sodium Level 130L, Potassium Level 4.1, Chloride Level 98, Carbon Dioxide Level 24, Anion Gap 8, Blood Urea Nitrogen 9, Creatinine 0.71, Estimat Glomerular Filtration Rate > 60, BUN/Creatinine Ratio 13, Glucose Level 165H, Calcium Level 7.9L, Corrected Calcium 9.3, Total Bilirubin 2.2H, Aspartate Amino Transf (AST/SGOT) 75H, Alanine Aminotransferase (ALT/SGPT) 55, Alkaline Phosphatase 143H, Total Protein 5.4L, Albumin 2.3L Microbiology 10/26/19 Influenza Types A,B Antigen (BERTA) - Final, Complete Assessment/Plan Assessment/Plan Assessment/Plan Ascites as shown by Abdominal U/S - LE extremity edema has improved with Lasix, may be able to treat with medical management - consider paracentesis if ascites does not improve, worsens, or signs of peritonitis Acute exacerbation of heart failure Macrocytic anemia Thrombocytopenia hyperbilirubinemia Clinical Quality Measures DVT/VTE Risk/Contraindication: Risk Factor Score Per Nursin RFS Level Per Nursing on Admit: 4+=Very High BLANCA MOE DO 10/28/19 1521: History of Present Illness History of Present Illness History of Present Illness Consult requested by Dr Prieto for possible paracentesis. Patient is a 64 year old male with worsening lower extremity edema for about 2-3 weeks. Patient was not improving with oral lasix, but states since having IV lasix has been diuresing a lot. Patient had his abdomen swelling some more than usual. Since Iv lasix it has gone down some. U/s done demonstrating ascites in abdomen. Denies n/v fever sweats chills shortness of breath or chest pain. U/s done at bedside today showing some ascites of abdomen but no good pocket safe to do paracentesis. Allergies and Home Medications Allergies Coded Allergies: No Known Drug Allergies (Unverified , 09/07/18) Home Medications Albuterol Sulfate 2.5 Mg/3 Ml Vial.neb, 2.5 MG NEB QID PRN for SHORTNESS OF BREATH, (Reported) Benzonatate 100 Mg Capsule, 100 MG PO TID PRN for COUGH, (Reported) Carvedilol 25 Mg Tablet, 12.5 MG PO BID, (Reported) TAKES 1/2 (25MG) TABLET Cholecalciferol (Vitamin D3) 5,000 Unit Capsule, 5,000 UNIT PO DAILY, (Reported) Fluticasone/Vilanterol 1 Each Blst.w.dev, 1 PUFF INH DAILY, (Reported) Furosemide 40 Mg Tablet, 40 MG PO DAILY, (Reported) Multivitamin 1 Each Capsule, 1 CAP PO DAILY, (Reported) Pantoprazole Sodium 40 Mg Tablet.dr, 40 MG PO BID, (Reported) Potassium Chloride 20 Meq Tab.er.prt, 20 MEQ PO DAILY, (Reported) Potassium Chloride 10 Meq Tab.er.prt, 10 MEQ PO DAILY, (Reported) Spironolactone 100 Mg Tablet, 100 MG PO DAILY, (Reported) Patient Home Medication List Home Medication List Reviewed: Yes Past Joxfwta-Leareq-Uwonsd Hx Reviewed Nursing Assessment Reviewed/Agree w Nursing PMH: Yes Family Medical History Significant Family History: No Pertinent Family Hx Family Medial History: Patient reports no known family medical history. Review of Systems-General Constitutional: No chills, No fever, No weakness EENTM: No mouth pain, No mouth swelling, No throat pain, No throat swelling Respiratory: cough, dyspnea on exertion Genitourinary: No decreased output, No dysuria; frequency; No hematuria Musculoskeletal: back pain, gout Skin: No lesions, No pruritus, No rash Psychiatric/Neurological: Denies Anxiety, Denies Depressed, Denies Numbness Physical Exam-General Problems Physical Exam General Appearance: WD/WN, no apparent distress HEENT: PERRL/EOMI Neck: non-tender, supple, normal inspection Respiratory: chest non-tender, no respiratory distress, no accessory muscle use Cardiovascular: regular rate, rhythm, no murmur Gastrointestinal: soft, distended (minimally distended/ obese) Rectal: deferred Back: no CVA tenderness Extremities: pedal edema (bilateral) 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, no motor/sensory deficits, alert, normal mood/affect, oriented x 3 Skin: normal color, warm/dry Assessment/Plan Assessment/Plan Assessment/Plan ascites heart failure patient medically being diuresed no good pocket visualized with u/s for paracentesis continue medical management if abdomen becomes more filled with ascitic fluid will do paracentesis Supervisory-Addendum Brief Verification & Attestation Participated in pt care: history, MDM, physical Personally performed: exam, history, MDM, supervision of care Care discussed with: Medical Student Procedures: n/a Results interpretation: Verified all documentation Verification and Attestation of Medical Student E/M Service A medical student performed and documented this service in my presence. I reviewed and verified all information documented by the medical student and made modifications to such information, when appropriate. I personally performed the physical exam and medical decision making. Blanca Moe, Oct 28, 2019,17:57 YARIEL COLBERT,MED STUDENT Oct 28, 2019 06:28 BLANCA MOE DO Oct 28, 2019 17:53
[2019-10-28] MEDS: ENOXAPARIN 40 MG/0.4 ML (LOVENOX) SYR SC SCH ×2 (06:49→17:50)
[2019-10-28] MEDS: FUROSEMIDE 40 MG/4 ML INJ (LASIX) IVP SCH ×2 (06:49→17:49)
[2019-10-28] MEDS: KCL 10 MEQ TAB (MICRO K) PO SCH (06:49)
[2019-10-28 08:00] VITALS: BP 125/60
[2019-10-28] MEDS: SPIRONOLACTONE 100 MG (ALDACTONE) TABLET PO SCH (08:19)
[2019-10-28] MEDS: PANTOPRAZOLE 40 MG (PROTONIX) TAB PO SCH ×2 (08:20→21:14)
[2019-10-28] MEDS: CARVEDILOL 12.5 MG (COREG) TABLET PO SCH ×2 (08:20→21:15)
--- NOTE | 2019-10-28 08:56 | Cardiology Progress Note ---
Subjective Date Seen by Provider: Oct 28, 2019 Time Seen by Provider: 08:53 Subjective/Events-last exam Patient is sitting up in bed, continues to have some dyspnea on exertion. Denies any chest pain Review of Systems General: No Chills, No Night Sweats, No Fatigue, No Malaise, No Appetite, No Other HEENT: No Head Aches, No Visual Changes, No Eye Pain, No Ear Pain, No Dysphasia, No Sinus Congestion, No Post Nasal Drip, No Sore Throat, No Other Pulmonary: Dyspnea; No Cough, No Pleuritic Chest Pain, No Other Cardiovascular: Edema; No: Chest Pain, Palpitations, Orthopnea, Paroxysmal Noc. Dyspnea, Lt Headedness, Other Objective-Cardiology Exam Last Set of Vital Signs Vital Signs 10/28/19 12:00 Temp 36.7 Pulse 73 Resp 18 B/P (MAP) 113/56 (75) Pulse Ox 98 O2 Delivery Room Air Capillary Refill : Less Than 3 SecondsLess Than 3 Seconds I&O Intake and Output 10/28/19 00:00 Intake Total 1426 ml Output Total 3330 ml Balance -1904 ml Intake Oral 1426 ml Output Urine Total 3330 ml # Bowel Movements 1 General: Alert, Oriented X3, Cooperative HEENT: Atraumatic, PERRLA Neck: Supple, No JVD, No Thyromegaly Lungs: Other (diminished breath sounds bibasilarly) Heart: Regular Rate, Normal S1, Normal S2 Abdomen: Normal Bowel Sounds, Soft, No Tenderness Extremities: Other (+2 pitting edema BLE) Skin: No Rashes, No Significant Lesion Neuro: Normal Speech, Cranial Nerves 3-12 NL Results Lab Laboratory Tests 10/28/19 04:25 A/P-Cardiology Admission Diagnosis Anasarca Hepatic cirrhosis Congestive heart failure, acute on chronic left ventricular diastolic dysfunction, normal systolic function, hypertensive heart disease Hypertension Assessment/Plan Anasarca, multifactorial, increasing pedal edema and increasing abdominal girth. Ultrasound showed ascites, mild to moderate in size. Receiving aggressive diuresis. Continue to monitor Grade 1 diastolic dysfunction with EF 55-65% per 2D Echo done 10/27/2019 Portal hypertension liver cirrhosis, history of alpha-1 antitrypsin deficiency. Managed and followed by primary care physician History of anemia, multiple blood transfusion, peptic ulcer disease with esophageal paresis and gastritis. Followed by primary care physician Hypertension, monitor blood pressure Hyperlipidemia, continue to monitor lipids Shortness of breath, bronchial wheezing, history of COPD. History of alcoholism. History of bilateral carotid stenosis. Continue to monitor as an outpatient Patient was seen and evaluated with Yudelka, examination performed, management plan was discussed, agree with the current scribed note, I made few changes to the note using Italic font Patient is laying down in bed, feeling better. Good urine output. Lungs were clear to auscultation Possible paracentesis today Clinical Quality Measures DVT/VTE Risk/Contraindication: Risk Factor Score Per Nursin RFS Level Per Nursing on Admit: 4+=Very High YUDELKA CROWE Oct 28, 2019 08:56 JEANMARIE MARCANO MD Oct 28, 2019 14:27
[2019-10-28] MEDS ORDERED: SPIRONOLACTONE 25 MG (ALDACTONE) TAB PO SCH (09:00)
[2019-10-28] MEDS: RT-ADVAIR HFA 115/21 MCG PER PUFF IH SCH (09:36)
[2019-10-28] MEDS: RT-ALBUTEROL SULF 2.5 MG/3 ML PRE-MIX VIAL INH SCH ×3 (11:08→21:25)
[2019-10-28 12:00] VITALS: BP 113/56
--- NOTE | 2019-10-28 13:38 | Progress Note - Hospitalist ---
JOSIE BROTHERS,MED STUDENT 10/28/19 1338: Subjective HPI/CC On Admission Date Seen by Provider: Oct 28, 2019 Time Seen by Provider: 08:26 CC: Anasarca with ascites HPI: This is a 64yoWM with Alpha 1 Antitrypsin Deficiency with subsequent cirrhosis managed up at and [facility] who presented to the hospital as a direct admission due to anasarca. Dr. Serrano was consulted, echocardiogram ordered, Lasix given, wide GURJIT wraps provided compression therapy, and pt is already feeling much better. Urinary output has been impressive. Abdominal ultrasound will be evaluated for any ascites. Subjective/Events-last exam Pt feeling well, no new complaints at this time Still coughing but thinks it has improved, LE edema improved Pt ambulating well, tolerating meals and bowels are moving states he didnt sleep much but admits he wanted to stay up and watch TV Objective Exam Vital Signs Vital Signs Date Time Temp Pulse Resp B/P (MAP) Pulse Ox O2 Delivery O2 Flow Rate FiO2 10/28/19 12:00 36.7 73 18 113/56 (75) 98 Room Air Capillary Refill : Less Than 3 SecondsLess Than 3 Seconds General Appearance: No Apparent Distress, WD/WN, Obese HEENT: Pharynx Normal, Moist Mucous Membranes Respiratory: Chest Non Tender, No Accessory Muscle Use, No Respiratory Distress, Crackles, Wheezing Cardiovascular: Regular Rate, Rhythm, No Gallop, No Murmur, Normal Peripheral Pulses Gastrointestinal: Non Tender, Soft Extremity: No Calf Tenderness; No Inflammation; Pedal Edema Neurologic/Psychiatric: Alert, Oriented x3 Skin: Normal Color, Warm/Dry Results/Procedures Lab Laboratory Tests 10/28/19 04:25 Patient resulted labs reviewed. Assessment/Plan Assessment and Plan Assess & Plan/Chief Complaint Assessment Acute exacerbation of chronic heart failure hyponatremia LE edema pulmonary edema Ascites Plan Surgery planning paracentesis Adding albuterol patricia d/t patient wheezing Continue IV lasix therapy GURJIT wrap and elevate LE Cardiac diet Abdominal USG today at 1700 Clinical Quality Measures DVT/VTE Risk/Contraindication: Risk Factor Score Per Nursin RFS Level Per Nursing on Admit: 4+=Very High TONIE LIND DO 10/28/192027: Subjective Subjective/Events-last exam Albuterol and nebulizer treatments will be ordered for wheezing. Paracentesis will be required due to ascites on ultrasound. Has an appointment with Dr. Barragan on 11/23/19. Total bilirubin improved from 3.3 to 2.2. Albumin decreased to 2.3. Lasix IV getting rid of a lot of fluid. Review of Systems General: Fatigue Pulmonary: Dyspnea, Cough Cardiovascular: Edema Objective Exam General Appearance: No Apparent Distress, WD/WN, Chronically ill, Obese Respiratory: No Accessory Muscle Use, No Respiratory Distress, Wheezing Cardiovascular: Regular Rate, Rhythm Extremity: Pedal Edema Neurologic/Psychiatric: Alert, Oriented x3 Assessment/Plan Assessment and Plan Assess & Plan/Chief Complaint Continue Lasix Fluid restriction Diagnosis/Problems Diagnosis/Problems (1) Anasarca (2) Ascites (3) Alpha 1-antitrypsin PiMS phenotype (4) Abnormal liver enzymes (5) Hyponatremia (6) Esophageal varices Status: Acute (7) Cirrhosis Status: Acute (8) Coagulopathy Status: Acute (9) Portal hypertension Status: Acute (10) COPD (chronic obstructive pulmonary disease) Supervisory-Addendum Brief Verification & Attestation Participated in pt care: history, MDM, physical Personally performed: exam, history, MDM, supervision of care Care discussed with: Medical Student Procedures: n/a Results interpretation: Verified all documentation Verification and Attestation of Medical Student E/M Service A medical student performed and documented this service in my presence. I reviewed and verified all information documented by the medical student and made modifications to such information, when appropriate. I personally performed the physical exam and medical decision making. Tonie Lind, Oct 28, 2019,20:27 JOSIE BROTHERS,MED STUDENT Oct 28, 2019 13:38 TONIE LIND DO Oct 28, 2019 20:28
--- NOTE | 2019-10-28 14:52 | NUR ---
US TO FLOOR DR RODRIGUEZ HAD LEFT AND HE REQUESTED THAT THIS RN REQUEST US TO FLOOR AT 1600 -- US ADVISED THIS RN THAT THEY WOULD BE HERE UNTIL 1630 AND THAT US WOULD BE TO FLOOR AT 1600 -- THIS RN CALLED DR RODRIGUEZ AND LEAVE MESSAGE ABOUT US
[2019-10-28 16:25] VITALS: BP 110/56
[2019-10-28] MEDS: BENZONATATE 100 MG (TESSALON) CAPSULE PO PRN (19:56)
[2019-10-28 20:05] VITALS: BP 123/60
[2019-10-28] MEDS: LORazepam 0.5 MG (ATIVAN) TABLET PO SCH (21:15)
[2019-10-29] VITALS (7 sets, daily range): BP systolic 109–125; BP diastolic 53–75
[2019-10-29 04:48] LABS: BASOPHILS % (AUTO) 0 % (0-10); EOSINOPHILS # (AUTO) 0.3 10^3/uL (0.0-0.3); EOSINOPHILS % (AUTO) 7 % (0-10); HEMATOCRIT 31 % (40-54); HEMOGLOBIN 10.9 G/DL (13.3-17.7); LYMPHOCYTES # (AUTO) 1.2 X 10^3 (1.0-4.0); LYMPHOCYTES % (AUTO) 25 % (12-44); MEAN CORPUSCULAR HEMOGLOBIN 37 PG (25-34); MEAN CORPUSCULAR HGB CONC 35 G/DL (32-36); MEAN CORPUSCULAR VOLUME 106 FL (80-99); MEAN PLATELET VOLUME 10.5 FL (7.4-10.4); MONOCYTES # (AUTO) 0.8 X 10^3 (0.0-1.0); MONOCYTES % (AUTO) 17 % (0-12); NEUTROPHILS # (AUTO) 2.5 X 10^3 (1.8-7.8); NEUTROPHILS % (AUTO) 51 % (42-75); PLATELET COUNT 59 10^3/uL (130-400); RED CELL DISTRIBUTION WIDTH 17.7 % (10.0-14.5); WHITE BLOOD COUNT 4.9 10^3/uL (4.3-11.0)
[2019-10-29 05:10] LABS: ALANINE AMINOTRANSFERASE 54 U/L (0-55); ALBUMIN 2.3 GM/DL (3.2-4.5); ALKALINE PHOSPHATASE 145 U/L (40-136); BILIRUBIN,TOTAL 2.2 MG/DL (0.1-1.0); BUN/CREATININE RATIO 14; CALCIUM 8.1 MG/DL (8.5-10.1); CARBON DIOXIDE 24 MMOL/L (21-32); CHLORIDE 98 MMOL/L (98-107); CREATININE SERUM 0.69 MG/DL (0.60-1.30); GFR ESTIMATED > 60; GLUCOSE 127 MG/DL (70-105); POTASSIUM 4.2 MMOL/L (3.6-5.0); SODIUM 130 MMOL/L (135-145); TOTAL PROTEIN 5.2 GM/DL (6.4-8.2)
--- NOTE | 2019-10-29 07:18 | Progress Note - Surgery ---
YARIEL COLBERT,MED STUDENT 10/29/19 0718: Subjective Date Seen by a Provider: Oct 29, 2019 Time Seen by a Provider: 07:11 Subjective/Events-last exam Patient seen and examined. Patient says that he is feeling better and that he feelings like he is less swollen. He is urinating, have regular bowel movements and denies any abdominal or lower extremity pain Review of Systems General: No Chills; Night Sweats; No Malaise; Appetite HEENT: No Head Aches, No Dysphasia Pulmonary: No Dyspnea, No Cough Cardiovascular: No: Chest Pain, Palpitations Gastrointestinal: No: Nausea, Vomiting, Abdominal Pain, Diarrhea, Constipation Genitourinary: No Dysuria, No Frequency, No Incontinence Neurological: No: Weakness, Numbness Objective Exam Vital Signs Date Time Temp Pulse Resp B/P (MAP) Pulse Ox O2 Delivery O2 Flow Rate FiO2 10/29/19 04:25 36.5 85 20 125/75 (92) 91 Room Air 10/29/19 01:00 81 10/29/19 00:00 37.2 82 20 111/69 (83) 94 Room Air 10/28/19 20:05 36.2 77 20 123/60 (81) 96 Room Air 10/28/19 19:55 Room Air 10/28/19 19:00 83 10/28/19 16:25 36.0 74 18 110/56 (74) 95 Room Air 10/28/19 15:36 96 Room Air 10/28/19 12:41 75 10/28/19 12:00 36.7 73 18 113/56 (75) 98 Room Air 10/28/19 11:08 95 Room Air 10/28/19 09:36 92 Room Air 10/28/19 08:00 Room Air 10/28/19 08:00 36.1 87 20 125/60 (81) 92 Room Air I & O 10/29/19 07:00 Intake Total 840 ml Output Total 2610 ml Balance -1770 ml Capillary Refill : Less Than 3 SecondsLess Than 3 Seconds General Appearance: No Apparent Distress, WD/WN, Chronically ill, Obese Respiratory: Chest Non Tender, Lungs Clear, No Accessory Muscle Use, No Respiratory Distress, Wheezing (hx of COPD related to A1AT deficiency ) Cardiovascular: Regular Rate, Rhythm, Normal Peripheral Pulses Gastrointestinal: non tender, soft, no pulsatile mass, distended (minimally distended/ obese) Extremity: Non Tender, No Calf Tenderness, Pedal Edema Neurologic/Psychiatric: Alert, Oriented x3, Normal Mood/Affect Skin: Normal Color, Warm/Dry Results Lab Laboratory Tests 10/29/19 04:32: White Blood Count 4.9, Red Blood Count 2.95L, Hemoglobin 10.9L, Hematocrit 31L, Mean Corpuscular Volume 106H, Mean Corpuscular Hemoglobin 37H, Mean Corpuscular Hemoglobin Concent 35, Red Cell Distribution Width 17.7H, Platelet Count 59L, Mean Platelet Volume 10.5H, Neutrophils (%) (Auto) 51, Lymphocytes (%) (Auto) 25, Monocytes (%) (Auto) 17H, Eosinophils (%) (Auto) 7, Basophils (%) (Auto) 0, Neutrophils # (Auto) 2.5, Lymphocytes # (Auto) 1.2, Monocytes # (Auto) 0.8, Eosinophils # (Auto) 0.3, Basophils # (Auto) 0.0, Sodium Level 130L, Potassium Level 4.2, Chloride Level 98, Carbon Dioxide Level 24, Anion Gap 8, Blood Urea Nitrogen 10, Creatinine 0.69, Estimat Glomerular Filtration Rate > 60, BUN/Creatinine Ratio 14, Glucose Level 127H, Calcium Level 8.1L, Corrected Calcium 9.5, Total Bilirubin 2.2H, Aspartate Amino Transf (AST/SGOT) 68H, Alanine Aminotransferase (ALT/SGPT) 54, Alkaline Phosphatase 145H, Total Protein 5.2L, Albumin 2.3L Microbiology 10/26/19 Influenza Types A,B Antigen (BERTA) - Final, Complete Assessment/Plan Assessment/Plan Assessment/Plan ascites heart failure patient medically being diuresed no good pocket visualized with u/s for paracentesis yesterday continue medical management if abdomen becomes more filled with ascitic fluid will do paracentesis Clinical Quality Measures DVT/VTE Risk/Contraindication: Risk Factor Score Per Nursin RFS Level Per Nursing on Admit: 4+=Very High BLANCA MOE DO 10/29/192121: Subjective Subjective/Events-last exam Abdomen less distended. Lower extremity is improving less swelling and feeling better able to have better feeling and no pain. Urinating a lot due to diuresing. No new complaints. Denies n/v fever sweats chills shortness of breath or chest pain. Objective Exam General Appearance: No Apparent Distress, Chronically ill HEENT: PERRL/EOMI Neck: Normal Inspection, Supple Respiratory: Chest Non Tender, No Accessory Muscle Use, No Respiratory Distress Cardiovascular: Regular Rate, Rhythm Gastrointestinal: non tender, soft, distended (minimally distended (less)/ obese) Extremity: Pedal Edema (improved) Neurologic/Psychiatric: Alert, Oriented x3, Normal Mood/Affect Skin: Normal Color, Warm/Dry Lymphatic: No Adenopathy Assessment/Plan Assessment/Plan Assessment/Plan ascites heart failure continues to improve no need for paracentesis at this time will sign off, call if needed. Supervisory-Addendum Brief Verification & Attestation Participated in pt care: history, MDM, physical Personally performed: exam, history, MDM, supervision of care Care discussed with: Medical Student Procedures: n/a Results interpretation: Verified all documentation Verification and Attestation of Medical Student E/M Service A medical student performed and documented this service in my presence. I reviewed and verified all information documented by the medical student and made modifications to such information, when appropriate. I personally performed the physical exam and medical decision making. Blanca Moe, Oct 29, 2019,21:22 YARIEL COLBERT,MED STUDENT Oct 29, 2019 07:18 BLANCA MOE DO Oct 29, 2019 21:22
[2019-10-29] MEDS: FUROSEMIDE 40 MG/4 ML INJ (LASIX) IVP SCH ×2 (07:36→16:35)
[2019-10-29] MEDS: KCL 10 MEQ TAB (MICRO K) PO SCH (07:36)
[2019-10-29] MEDS: ENOXAPARIN 40 MG/0.4 ML (LOVENOX) SYR SC SCH ×2 (07:36→17:46)
--- NOTE | 2019-10-29 08:48 | Cardiology Progress Note ---
Subjective Date Seen by Provider: Oct 29, 2019 Time Seen by Provider: 08:47 Subjective/Events-last exam Patient is sitting up in bed, continues to have dyspnea, but reports some improvement. Peripheral edema improving. Review of Systems General: No Chills, No Night Sweats; Fatigue; No Malaise, No Appetite, No Other HEENT: No Head Aches, No Visual Changes, No Eye Pain, No Ear Pain, No Dysphasia, No Sinus Congestion, No Post Nasal Drip, No Sore Throat, No Other Pulmonary: Dyspnea; No Cough, No Pleuritic Chest Pain, No Other Cardiovascular: Edema; No: Chest Pain, Palpitations, Orthopnea, Paroxysmal Noc. Dyspnea, Lt Headedness, Other Objective-Cardiology Exam Last Set of Vital Signs Vital Signs 10/29/19 10/29/19 12:00 12:12 Temp 36.6 Pulse 80 Resp 20 B/P (MAP) 109/53 (71) Pulse Ox 93 O2 Delivery Room Air Capillary Refill : NONELess Than 3 Seconds I&O Intake and Output 10/29/19 00:00 Intake Total 840 ml Output Total 2685 ml Balance -1845 ml Intake Oral 840 ml Output Urine Total 2685 ml General: Alert, Oriented X3, Cooperative HEENT: Atraumatic, PERRLA Neck: Supple, No JVD, No Thyromegaly Lungs: Other (diminished breath sounds bibasilarly) Heart: Regular Rate, Normal S1, Normal S2 Abdomen: Normal Bowel Sounds, Soft, No Tenderness Extremities: Other (+2 pitting edema BLE) Skin: No Rashes, No Significant Lesion Neuro: Normal Speech, Cranial Nerves 3-12 NL Results Lab Laboratory Tests 10/29/19 04:32 A/P-Cardiology Admission Diagnosis Anasarca Hepatic cirrhosis Congestive heart failure, acute on chronic left ventricular diastolic dysfunction, normal systolic function, hypertensive heart disease Hypertension Assessment/Plan Anasarca, multifactorial, increasing pedal edema and increasing abdominal girth. Ultrasound showed ascites, mild to moderate in size. Receiving aggressive diuresis. Continue to monitor Grade 1 diastolic dysfunction with EF 55-65% per 2D Echo done 10/27/2019 Portal hypertension liver cirrhosis, history of alpha-1 antitrypsin deficiency. Managed and followed by primary care physician History of anemia, multiple blood transfusion, peptic ulcer disease with esophageal paresis and gastritis. Followed by primary care physician Hypertension, monitor blood pressure Hyperlipidemia, continue to monitor lipids Shortness of breath, bronchial wheezing, history of COPD. History of alcoholism. History of bilateral carotid stenosis. Continue to monitor as an outpatient Patient was seen and evaluated with Yudelka, examination performed, management plan was discussed, agree with the current scribed note, I made few changes to the note using Italic font Patient is feeling better, still having significant edema. No chest pain. Abdominal distention Continue with diuretics, no significant ascites requiring paracentesis at this time. Clinical Quality Measures DVT/VTE Risk/Contraindication: Risk Factor Score Per Nursin RFS Level Per Nursing on Admit: 4+=Very High YUDELKA CROWE Oct 29, 2019 8:48 am JEANMARIE MARCANO MD Oct 29, 2019 12:47 pm
[2019-10-29] MEDS: RT-ALBUTEROL SULF 2.5 MG/3 ML PRE-MIX VIAL INH SCH ×4 (08:57→19:41)
[2019-10-29] MEDS: PANTOPRAZOLE 40 MG (PROTONIX) TAB PO SCH ×2 (09:04→19:40)
[2019-10-29] MEDS: CARVEDILOL 12.5 MG (COREG) TABLET PO SCH ×2 (09:04→19:40)
[2019-10-29] MEDS: SPIRONOLACTONE 100 MG (ALDACTONE) TABLET PO SCH (09:04)
--- NOTE | 2019-10-29 11:20 | Progress Note - Hospitalist ---
JOSIE BROTHERS,MED STUDENT 10/29/19 1120: Subjective HPI/CC On Admission Date Seen by Provider: Oct 29, 2019 Time Seen by Provider: 08:36 CC: Anasarca with ascites HPI: This is a 64yoWM with Alpha 1 Antitrypsin Deficiency with subsequent cirrhosis managed up at and [facility] who presented to the hospital as a direct admission due to anasarca. Dr. Serrano was consulted, echocardiogram ordered, Lasix given, wide GURJIT wraps provided compression therapy, and pt is already feeling much better. Urinary output has been impressive. Abdominal ultrasound will be evaluated for any ascites. Subjective/Events-last exam Pt awake, watching tv Thinks his cough is improving. Breathing treatments working great States legs are feeling less heavy and LE edema much improved no complaints at this time Objective Exam Vital Signs Vital Signs Date Time Temp Pulse Resp B/P (MAP) Pulse Ox O2 Delivery O2 Flow Rate FiO2 10/29/19 08:56 95 Room Air 10/29/19 08:00 36.5 77 18 109/58 (75) Capillary Refill : NONELess Than 3 Seconds General Appearance: No Apparent Distress, WD/WN, Obese HEENT: Pharynx Normal, Moist Mucous Membranes Respiratory: Chest Non Tender, No Accessory Muscle Use, No Respiratory Distress, Crackles, Wheezing (improved after breathing tx ) Cardiovascular: Regular Rate, Rhythm, No Gallop, No Murmur, Normal Peripheral Pulses Extremity: No Calf Tenderness; No Inflammation; Pedal Edema Neurologic/Psychiatric: Alert, Oriented x3 Skin: Normal Color, Warm/Dry Results/Procedures Lab Laboratory Tests 10/29/19 04:32 Patient resulted labs reviewed. Assessment/Plan Assessment and Plan Assess & Plan/Chief Complaint Hospitalist Assessment Acute exacerbation of chronic heart failure hyponatremia hyperbilirubinemia LE edema pulmonary edema Ascites Plan Discussed possible discharge tomorrow if diuresis is successful Surgery evaluated for paracentesis - no large enough fluid pocket to be drained Continue albuterol duonebs d/t patient wheezing QID Continue IV lasix therapy GURJIT wrap and elevate LE Cardiac diet Clinical Quality Measures DVT/VTE Risk/Contraindication: Risk Factor Score Per Nursin RFS Level Per Nursing on Admit: 4+=Very High TONIE PRIETO DO 10/29/192130: Subjective Subjective/Events-last exam Pt doing very well Wheezing resolved with nebulizer treatments Lower extremity edema and anasarca and ascites much better Paracentesis not performed due to not enough fluid to risk of complications of the paracentesis Likely go home tomorrow Review of Systems General: Fatigue Pulmonary: Cough Cardiovascular: Edema Objective Exam General Appearance: No Apparent Distress, WD/WN, Chronically ill, Obese Respiratory: Lungs Clear, Normal Breath Sounds Cardiovascular: Regular Rate, Rhythm Neurologic/Psychiatric: Alert, Oriented x3, No Motor/Sensory Deficits, Normal Mood/Affect Assessment/Plan Assessment and Plan Assess & Plan/Chief Complaint Lasix DC tomorrow Diagnosis/Problems Diagnosis/Problems (1) Anasarca (2) Ascites (3) Cirrhosis Status: Acute (4) Hyponatremia (5) Alpha 1-antitrypsin PiMS phenotype (6) Abnormal liver enzymes Supervisory-Addendum Brief Verification & Attestation Participated in pt care: history, MDM, physical Personally performed: exam, history, MDM, supervision of care Care discussed with: Medical Student Procedures: n/a Results interpretation: Verified all documentation Verification and Attestation of Medical Student E/M Service A medical student performed and documented this service in my presence. I revi ewed and verified all information documented by the medical student and made modifications to such information, when appropriate. I personally performed the physical exam and medical decision making. Tonie Prieto, Oct 29, 2019,21:31 JOSIE BROTHERS,MED STUDENT Oct 29, 2019 11:20 TONIE PRIETO DO Oct 29, 2019 21:31
[2019-10-29] MEDS: RT-ADVAIR HFA 115/21 MCG PER PUFF IH SCH (11:25)
[2019-10-29] MEDS: LORazepam 0.5 MG (ATIVAN) TABLET PO SCH (19:40)
[2019-10-29] MEDS: guaiFENesin/CODEINE (ROBITUSSIN AC) 10ML UDC PO PRN ×2 (19:43→23:43)
[2019-10-30 05:13] LABS: BASOPHILS % (AUTO) 0 % (0-10); EOSINOPHILS # (AUTO) 0.3 10^3/uL (0.0-0.3); EOSINOPHILS % (AUTO) 7 % (0-10); HEMATOCRIT 32 % (40-54); HEMOGLOBIN 11.2 G/DL (13.3-17.7); LYMPHOCYTES % (AUTO) 23 % (12-44); MEAN CORPUSCULAR HEMOGLOBIN 37 PG (25-34); MEAN CORPUSCULAR HGB CONC 35 G/DL (32-36); MEAN CORPUSCULAR VOLUME 106 FL (80-99); MEAN PLATELET VOLUME 10.7 FL (7.4-10.4); MONOCYTES # (AUTO) 0.9 X 10^3 (0.0-1.0); MONOCYTES % (AUTO) 20 % (0-12); NEUTROPHILS # (AUTO) 2.2 X 10^3 (1.8-7.8); NEUTROPHILS % (AUTO) 49 % (42-75); PLATELET COUNT 69 10^3/uL (130-400); RED CELL DISTRIBUTION WIDTH 17.9 % (10.0-14.5); WHITE BLOOD COUNT 4.5 10^3/uL (4.3-11.0)
[2019-10-30 05:37] LABS: ALANINE AMINOTRANSFERASE 51 U/L (0-55); ALBUMIN 2.4 GM/DL (3.2-4.5); ALKALINE PHOSPHATASE 146 U/L (40-136); BUN/CREATININE RATIO 18; CALCIUM 8.1 MG/DL (8.5-10.1); CARBON DIOXIDE 23 MMOL/L (21-32); CHLORIDE 99 MMOL/L (98-107); CREATININE SERUM 0.67 MG/DL (0.60-1.30); GFR ESTIMATED > 60; GLUCOSE 116 MG/DL (70-105); SODIUM 130 MMOL/L (135-145); TOTAL PROTEIN 5.5 GM/DL (6.4-8.2)
[2019-10-30] MEDS: FUROSEMIDE 40 MG/4 ML INJ (LASIX) IVP SCH (06:06)
[2019-10-30] MEDS: KCL 10 MEQ TAB (MICRO K) PO SCH (06:06)
[2019-10-30] MEDS: ENOXAPARIN 40 MG/0.4 ML (LOVENOX) SYR SC SCH (06:07)
[2019-10-30 06:08] LABS: EOSINOPHILS % (MANUAL) 4 %; LYMPHOCYTES % (MANUAL) 22 %; MONOCYTES % (MANUAL) 17 %; NEUTROPHILS % (MANUAL) 57 %
[2019-10-30 08:00] VITALS: BP 110/55
[2019-10-30] MEDS: CARVEDILOL 12.5 MG (COREG) TABLET PO SCH (08:55)
[2019-10-30] MEDS: PANTOPRAZOLE 40 MG (PROTONIX) TAB PO SCH (08:55)
[2019-10-30] MEDS: SPIRONOLACTONE 100 MG (ALDACTONE) TABLET PO SCH (08:55)
--- NOTE | 2019-10-30 09:51 | Cardiology Progress Note ---
Subjective Date Seen by Provider: Oct 30, 2019 Time Seen by Provider: 09:49 Subjective/Events-last exam Patient is laying down in bed, feeling better. No new complaint. Review of Systems General: No Chills, No Night Sweats, No Fatigue, No Malaise, No Appetite, No Other HEENT: No Head Aches, No Visual Changes, No Eye Pain, No Ear Pain, No Dysphasia, No Sinus Congestion, No Post Nasal Drip, No Sore Throat, No Other Pulmonary: No Dyspnea, No Cough, No Pleuritic Chest Pain, No Other Cardiovascular: No: Chest Pain, Palpitations, Orthopnea, Paroxysmal Noc. Dyspnea, Edema, Lt Headedness, Other Objective-Cardiology Exam Last Set of Vital Signs Vital Signs 10/30/19 08:00 Temp 36.8 Pulse 75 Resp 20 B/P (MAP) 110/55 (73) Pulse Ox 97 O2 Delivery Room Air Capillary Refill : NONELess Than 3 Seconds I&O Intake and Output 10/30/19 00:00 Intake Total 1142 ml Output Total 1500 ml Balance -358 ml Intake Oral 1142 ml Output Urine Total 1500 ml # Bowel Movements 1 General: Alert, Oriented X3, Cooperative HEENT: Atraumatic, PERRLA Neck: Supple, No JVD, No Thyromegaly Lungs: Other (diminished breath sounds bibasilarly) Heart: Regular Rate, Normal S1, Normal S2 Abdomen: Normal Bowel Sounds, Soft, No Tenderness Extremities: Other (+2 pitting edema BLE) Skin: No Rashes, No Significant Lesion Neuro: Normal Speech, Cranial Nerves 3-12 NL Results Lab Laboratory Tests 10/30/19 04:50 A/P-Cardiology Admission Diagnosis Anasarca Hepatic cirrhosis Congestive heart failure, acute on chronic left ventricular diastolic dysfunction, normal systolic function, hypertensive heart disease Hypertension Assessment/Plan Anasarca, multifactorial, increasing pedal edema and increasing abdominal girth. Ultrasound showed ascites, small to moderate in size, continue on diuretics and monitor. Grade 1 diastolic dysfunction with EF 55-65% per 2D Echo done 10/27/2019 Portal hypertension liver cirrhosis, history of alpha-1 antitrypsin deficiency. Managed and followed by primary care physician History of anemia, multiple blood transfusion, peptic ulcer disease with esophageal paresis and gastritis. Followed by primary care physician Hypertension, monitor blood pressure Hyperlipidemia, continue to monitor lipids Shortness of breath, bronchial wheezing, history of COPD. History of alcoholism. History of bilateral carotid stenosis. Continue to monitor as an outpatient Clinical Quality Measures DVT/VTE Risk/Contraindication: Risk Factor Score Per Nursin RFS Level Per Nursing on Admit: 4+=Very High JEANMARIE MARCANO MD Oct 30, 2019 09:51
[2019-10-30] MEDS: RT-ALBUTEROL SULF 2.5 MG/3 ML PRE-MIX VIAL INH SCH (11:47)
[2019-10-30] MEDS: RT-ADVAIR HFA 115/21 MCG PER PUFF IH SCH (11:47)
--- NOTE | 2019-10-30 11:53 | Discharge Summary ---
Discharge Summary Hospital Course Was the Problem List Reviewed?: Yes Problems/Dx: (1) Anasarca (2) Ascites (3) Cirrhosis Status: Acute (4) Hyponatremia (5) Alpha 1-antitrypsin PiMS phenotype (6) Abnormal liver enzymes Hospital Course Date of Admission: Oct 26, 2019 at 17:26 Admission Diagnosis : Family Physician/Provider: Tonie Prieto DO Date of Discharge: 10/30/19 Discharge Diagnosis: Anasarca, volume overload, diastolic dysfunction, cirrhosis, ascites, wheezing, asthma Hospital Course: Hospital course: Pt had a lengthy hospital course, he was admitted for volume o verload and heart failure, echocardiogram revealed diastolic dysfunction and aggressive diuresis was initiated. Labs were monitored closely for liver cirrhosis issues and there was no evidence of any renal insufficiency or hypokalemia during the hospital course. Overall Pt felt well enough, Albuterol and nebulizer treatments cleared up any wheezing and he was evaluated for home O2 and was discharged in improved condition with close follow-up with labs on Saturday with [facility]. Labs and Pending Lab Test: Laboratory Tests 10/30/19 04:50: White Blood Count 4.5, Red Blood Count 3.05L, Hemoglobin 11.2L, Hematocrit 32L, Mean Corpuscular Volume 106H, Mean Corpuscular Hemoglobin 37H, Mean Corpuscular Hemoglobin Concent 35, Red Cell Distribution Width 17.9H, Platelet Count 69L, Mean Platelet Volume 10.7H, Neutrophils (%) (Auto) 49, Lymphocytes (%) (Auto) 23, Monocytes (%) (Auto) 20H, Eosinophils (%) (Auto) 7, Basophils (%) (Auto) 0, Neutrophils # (Auto) 2.2, Lymphocytes # (Auto) 1.0, Monocytes # (Auto) 0.9, Eosinophils # (Auto) 0.3, Basophils # (Auto) 0.0, Neutrophils % (Manual) 57, Lymphocytes % (Manual) 22, Monocytes % (Manual) 17, Eosinophils % (Manual) 4, Macrocytosis SLIGHT, Sodium Level 130L, Potassium Level 4.0, Chloride Level 99, Carbon Dioxide Level 23, Anion Gap 8, Blood Urea Nitrogen 12, Creatinine 0.67, Estimat Glomerular Filtration Rate > 60, BUN/Creatinine Ratio 18, Glucose Level 116H, Calcium Level 8.1L, Corrected Calcium 9.4, Total Bilirubin 2.0H, Aspartate Amino Transf (AST/SGOT) 68H, Alanine Aminotransferase (ALT/SGPT) 51, Alkaline Phosphatase 146H, Total Protein 5.5L, Albumin 2.4L Microbiology 10/26/19 Influenza Types A,B Antigen (BERTA) - Final, Complete Home Meds Active Reported Potassium Chloride 10 Meq Tab.er.prt 10 Meq PO DAILY Carvedilol 25 Mg Tablet 12.5 Mg PO BID TAKES 1/2 (25MG) TABLET Spironolactone 100 Mg Tablet 100 Mg PO DAILY Potassium Chloride 20 Meq Tab.er.prt 20 Meq PO DAILY Albuterol Sulfate 2.5 Mg/3 Ml Vial.neb 2.5 Mg NEB QID PRN Furosemide 40 Mg Tablet 40 Mg PO DAILY Benzonatate 100 Mg Capsule 100 Mg PO TID PRN Pantoprazole Sodium 40 Mg Tablet.dr 40 Mg PO BID Multivitamins (Multivitamin) 1 Each Capsule 1 Cap PO DAILY Breo Ellipta 200-25 Mcg INH (Fluticasone/Vilanterol) 1 Each Blst.w.dev 1 Puff INH DAILY Vitamin D3 (Cholecalciferol (Vitamin D3)) 5,000 Unit Capsule 5,000 Unit PO DAILY Assessment/Pt Instructions DR Ida Vasques Discharge Planning: <30 minutes discharge planning Discharge Instructions Discharge Diet: No Restrictions Activity as Tolerated: Yes Discharge Physical Examination Vital Signs Vital Signs Date Time Temp Pulse Resp B/P (MAP) Pulse Ox O2 Delivery O2 Flow Rate FiO2 10/30/19 08:01 Room Air 10/30/19 08:00 36.8 75 20 110/55 (73) 97 General Appearance: No Apparent Distress, WD/WN, Chronically ill, Obese Respiratory: Lungs Clear, Decreased Breath Sounds Cardiovascular: Regular Rate, Rhythm Extremity: Pedal Edema Neurologic/Psychiatric: Alert, Oriented x3, No Motor/Sensory Deficits, Normal Mood/Affect Allergies: Coded Allergies: No Known Drug Allergies (Unverified , 09/07/18) Discharge Summary Date of Admission Oct 26, 2019 at 17:26 Date of Discharge Discharge Date: Oct 30, 2019 Admission Diagnosis Assessment: Ascites Volume overload Anasarca failed PO diuretics Cough with pulmonary edema Alpha 1-antitrypsin def Cirrhosis Hyponatremia Plan: IV Lasix Potassium USG ECHO Dr Maggie Moe Discharge Diagnosis Lasix DC tomorrow (1) Anasarca (2) Ascites (3) Cirrhosis Status: Acute (4) Hyponatremia (5) Alpha 1-antitrypsin PiMS phenotype (6) Abnormal liver enzymes Clinical Quality Measures DVT/VTE Risk/Contraindication: Risk Factor Score Per Nursin RFS Level Per Nursing on Admit: 4+=Very High TONIE PRIETO DO Oct 30, 2019 11:53
[2019-10-30 13:20] VITALS: BP 110/55
--- NOTE | 2019-11-03 09:50 | Physician Query Clarification ---
PQ-Further Specificity Admission/Discharge Admission Date: Oct 26, 2019 at 17:26 Discharge Date: Oct 30, 2019 at 13:20 The medical record reflects the following clinical scenario: History/Risk Factors: Acute exacerbation of CHF, Cirrhosis, Ascites Clinical Findings: BNP 130.9, H&P Anasarca failed PO diuretics Treatment: IV Lasix, GURJIT wrap, elevate LE Question: Can you further specify the etiology of the Anasarca per the clinical indicators above? Please document a response in the Progress Notes or Discharge Summary. 1. Congestive heart failure 2. Cirrhosis of liver 3. Other, with explanation of the clinical findings. 4. Clinically undetermined, no explanation for the clinical findings. PHYSICIAN RESPONSE Can you specify per above: 1 Please remember a lack of response to the above will prompt a phone page by CDI/Coding staff. In responding to this query, please exercise your independent professional judgment. The purpose of this communication is to more accurately reflect the complexity of your patients condition. The fact that a question is asked does not imply that any particular answer is desired or expected. Thank you for your timely response to this clarification. Requestors name: Estefani THIS PHYSICIAN QUERY FORM IS A PERMANENT PART OF THE MEDICAL RECORD ESTEFANI CHOUDHURY Nov 03, 2019 09:50 BRENNA LIND DO Nov 03, 2019 19:55
== END 2019-10-30 13:20 | disposition home or self-care (01) | DRG 292 ==
LOC: 4TH 17:26
PROVIDERS: ADMIT Internal Medicine; ATTEND Internal Medicine
DX: I11.0 Hypertensive heart disease with heart failure (principal); E87.1 Hypo-osmolality and hyponatremia; K76.6 Portal hypertension; I85.10 Secondary esophageal varices without bleeding; Z68.41 Body mass index [BMI] 40.0-44.9, adult; D68.9 Coagulation defect, unspecified; R18.8 Other ascites; I50.33 Acute on chronic diastolic (congestive) heart failure; E88.01 Alpha-1-antitrypsin deficiency; K74.60 Unspecified cirrhosis of liver; J44.9 Chronic obstructive pulmonary disease, unspecified; F10.20 Alcohol dependence, uncomplicated; E78.5 Hyperlipidemia, unspecified; D53.9 Nutritional anemia, unspecified; D69.6 Thrombocytopenia, unspecified; I65.23 Occlusion and stenosis of bilateral carotid arteries; Z87.891 Personal history of nicotine dependence; E66.9 Obesity, unspecified
CPT/HCPCS: 36415; 71046; 76705; 80053; 81000; 82962; 83735; 83880; 84484; 85007; 85025; 85027; 85610; 87804; 93306; 94640; 94760

== ENCOUNTER → 2019-12-02 | Outpatient (CLI) | payer BC ==
[~2019-12-02] MED LIST changes: +ALBU2.5V4 NEB; +BENZ-36 PO; +CARV25TA PO; +FURO40TA4 PO; +POTA10TA36 PO; +POTA20TA15 PO; +SPIR100T4 PO
[2019-12-02 09:32] LABS: BUN/CREATININE RATIO 12; CALCIUM 8.2 MG/DL (8.5-10.1); CARBON DIOXIDE 21 MMOL/L (21-32); CHLORIDE 103 MMOL/L (98-107); CREATININE SERUM 0.75 MG/DL (0.60-1.30); GFR ESTIMATED > 60; GLUCOSE 119 MG/DL (70-105); SODIUM 133 MMOL/L (135-145)
== END ==
LOC: LAB 08:57
PROVIDERS: ATTEND Internal Medicine
DX: K70.30 Alcoholic cirrhosis of liver without ascites (principal)
CPT/HCPCS: 36415; 80048

== ENCOUNTER → 2019-12-02 | Outpatient (CLI) | payer BC ==
[~2019-12-02] MED LIST changes: +CATHETER FLUSH 10 ML SYR IV PRN; +HOLD METFORMIN - RECEIVED CONTRAST 20 ML VIAL IV SCH; +IOHEXOL 350 MG/ML 100 ML (OMNIPAQUE 350) VIAL IV ONE; +NS 100 ML (IVPB) BAG IV ONE
--- NOTE | 2019-12-02 16:33 | Diagnostic Imaging Report ---
PROCEDURE: CT abdomen with and without contrast. TECHNIQUE: Multiple contiguous axial CT images of the abdomen were obtained prior to and after intravenous administration of iodinated contrast. Auto Exposure Controls were utilized during the CT exam to meet ALARA standards for radiation dose reduction. INDICATION: Cirrhosis of the liver with ascites. COMPARISON: Comparison is made to examination of 09/07/2018. FINDINGS: There is homogeneous enhancement throughout the liver. There is continued prominence of the lateral segment of the left hepatic lobe. Gallbladder is contracted. There are numerous portosystemic collaterals with prominent esophageal varices noted. There is mild splenomegaly. There is moderate abdominal ascites with edema also seen throughout the mesentery which may be due to venous congestion. There is excretion of contrast from both kidneys without evidence of hydronephrosis. No organized fluid collection is identified. IMPRESSION: Ascites and numerous venous collaterals, indicating portal venous hypertension. This is associated with mild splenomegaly. There is no discrete hepatic lesion identified by CT imaging. Prominent esophageal varices are noted. The gallbladder is contracted which limits evaluation. Dictated by: Dictated on workstation # [id number]
== END ==
LOC: RAD 15:05
PROVIDERS: ATTEND Internal Medicine
DX: K70.31 Alcoholic cirrhosis of liver with ascites (principal); K76.6 Portal hypertension; R16.1 Splenomegaly, not elsewhere classified; I85.10 Secondary esophageal varices without bleeding
CPT/HCPCS: 74170

== ENCOUNTER → 2020-05-16 | Outpatient (CLI) | payer BC ==
[~2020-05-16] MED LIST changes: -CATHETER FLUSH 10 ML SYR IV PRN; -HOLD METFORMIN - RECEIVED CONTRAST 20 ML VIAL IV SCH; -IOHEXOL 350 MG/ML 100 ML (OMNIPAQUE 350) VIAL IV ONE; -NS 100 ML (IVPB) BAG IV ONE
--- NOTE | 2020-05-16 10:11 | Diagnostic Imaging Report ---
INDICATION: Cirrhosis. PROCEDURE: Ultrasound abdomen complete. TECHNIQUE: Multiple real-time grayscale images were obtained of the abdomen in various projections. The liver is small at 13 cm. Liver parenchyma is heterogeneous but no discrete liver mass is detected. Portal vein is patent and demonstrates normal direction of flow. There is some mild perihepatic ascites. There is a right pleural effusion as well. Gallbladder is without stones or sludge. There is some mild pericholecystic fluid present. There is also some borderline wall thickening at 3 mm. No biliary ductal dilatation is seen. Pancreas is obscured by bowel gas. Spleen is enlarged 16.1 cm. Aorta is obscured. IVC is patent. Kidneys are normal in size. No calculi or hydronephrosis is detected. IMPRESSION: 1. Features consistent with cirrhosis. Liver parenchyma is heterogeneous but no discrete liver mass is identified. There is splenomegaly and ascites suggestive of portal hypertension. Gallbladder wall is borderline in thickness which can be seen with liver dysfunction and ascites. There is no cholelithiasis or sludge. 2. Small right pleural effusion. Dictated by: Dictated on workstation # [id number]
== END ==
LOC: RAD 06:57
PROVIDERS: ATTEND Internal Medicine
DX: K70.31 Alcoholic cirrhosis of liver with ascites (principal); J90 Pleural effusion, not elsewhere classified; R16.1 Splenomegaly, not elsewhere classified
CPT/HCPCS: 76700

== ENCOUNTER 2020-08-31 05:32 | Outpatient (RCR) | payer BC ==
[~2020-08-31] VITALS: Ht 193 cm; Wt 129.5 kg
[~2020-08-31 05:32] MED LIST changes: -PANT40TA3 PO; +PANT40TA52 PO; +VITA-203 PO
== END 2020-08-31 09:42 | disposition home or self-care (01) ==
LOC: PREOP 05:32
PROVIDERS: ATTEND Surgery
DX: Z01.812 Encounter for preprocedural laboratory examination (principal); I85.00 Esophageal varices without bleeding; Z20.828 Contact with and (suspected) exposure to other viral communicable diseases
CPT/HCPCS: 87635

== ENCOUNTER 2020-09-02 06:46 | Day surgery (SDC) | payer BC ==
[~2020-09-02] VITALS: Ht 193 cm; Wt 34.8 kg
[2020-09-02] MEDS ORDERED: PROPOFOL INJECTION 50 ML IV ONE ×2 (07:08→07:53)
[2020-09-02] MEDS ORDERED: MIDAZOLAM 2 MG/2 ML (VERSED) VIAL ONE (07:08)
[2020-09-02] MEDS ORDERED: LACTATED RINGERS 1,000 ML IV ONE (07:10)
[2020-09-02] MEDS ORDERED: HURRICAINE EXT TUBE (BENZOCAINE) ONE (07:39)
[2020-09-02] MEDS ORDERED: LACTATED RINGERS 1,000 ML IV STA (07:48)
[2020-09-02] MEDS ORDERED: HURRICAINE EXT TUBE (BENZOCAINE) XX PRN (08:00)
[2020-09-02 08:03] VITALS: BP 103/57
[2020-09-02 08:08] VITALS: BP 107/60
--- NOTE | 2020-09-02 08:09 | Progress Note-Post Operative ---
Post-Operative Progess Note Surgeon (s)/Silk Printer (s) Surgeon BLANCA RODRIGUEZ DO Silk Printer: na Pre-Operative Diagnosis history of esophageal varices Post-Operative Diagnosis gastritis, gastric polyps, grade 2/3 esophageal varices Procedure & Operative Findings Date of Procedure 09/02/20 Procedure Performed/Findings egd c biopsy gastric polyp and snare polypectomy x 2 gastric polyps Anesthesia Type per roll edge stitcher hand Estimated Blood Loss Estimated blood loss (mL): none Specimens/Packing Specimens Removed gastric polyps BLANCA RODRIGUEZ DO Sep 02, 2020 08:09
[2020-09-02 08:10] VITALS: BP 111/64
--- NOTE | 2020-09-02 08:12 | Discharge Inst-Simple/Standard ---
Discharge Inst-Standard Patient Instructions/Follow Up Plan of Care/Instructions/FU: 2 weeks Payal Activity as Tolerated: Yes Discharge Diet: Regular Diet BLANCA RODRIGUEZ DO Sep 02, 2020 08:12
[2020-09-02 08:27] VITALS: BP 117/60
[2020-09-02 08:40] VITALS: BP 124/71
[2020-09-02 08:52] VITALS: BP 124/71
--- NOTE | 2020-09-02 09:04 | Anesthesia-General Post-Op ---
MAC Patient Condition Mental Status/LOC: Same as Preop Cardiovascular: Satisfactory Nausea/Vomiting: Absent Respiratory: Satisfactory Pain: Controlled Complications: Absent Post Op Complications Complications None Follow Up Care/Instructions Patient Instructions None needed. Anesthesiology Discharge Order Discharge Order Patient is doing well, no complaints, stable vital signs, no apparent adverse anesthesia problems. No complications reported per nursing. LUCINDA SMITH CRNA Sep 02, 2020 09:04
--- NOTE | 2020-09-02 14:01 | OPERATIVE REPORT ---
DATE OF SERVICE: 09/02/2020 PREOPERATIVE DIAGNOSIS: History of esophageal varices. POSTOPERATIVE DIAGNOSES: Gastritis, gastric polyps, grade II/III esophageal varices. PROCEDURE: Esophagogastroduodenoscopy with biopsy of gastric polyp with snare polypectomy x2, gastric polyps. SURGEON: Blanca Moe DO ANESTHESIA: Per CLAIMS SUPPORT SPECIALIST. ESTIMATED BLOOD LOSS: None. COMPLICATIONS: None. INDICATIONS: The patient is a 65-year-old male who was possibly undergoing a liver transplant. The patient was recommended to have EGD. He has history of varices. He understands risks and benefits of procedure and wished to proceed with procedure. Consent was signed in the chart. DESCRIPTION OF PROCEDURE: The patient was taken to the endoscopy suite, placed in left lateral recumbent position. Timeout was performed. Scope was inserted in mouth, down the esophagus, stomach and into the duodenum without difficulty. There were no polyps, masses or ulcerations within the duodenum. Scope was slowly retracted back into the stomach where it was further insufflated. Gastritis appearance throughout the stomach, multiple polyps. There are two erythematous pedunculated polyps, which more towards the greater curvature. Snare polyp one was grasped with a biopsy forceps appear to be highly vascularized which hot biopsy was obtained. A snare was then used to remove that polyp, which was able to be suctioned therefore scope was then withdrawn with the scope. Scope was then reinserted. Hemostasis had occurred with the snare. The small polyp then had a stent placed around it and snare polypectomy was performed that was hot. Scope was retroflexed noting a small hiatal hernia and also noting again the gastritis and chronic changes. Scope was returned to its normal position, slowly withdrawn to distal esophagus. No polyps, masses or ulcerations. Scope was then slowly retracted noting grade II/III esophageal varices towards the distal half of the esophagus. Scope was then slowly retracted until completely removed. The patient tolerated procedure well without any complications. RECOMMENDATIONS: The patient will follow up in 2 weeks. He will continue his Protonix. Also need follow up with his physician at . Job ID: [id number] DocumentID: [id number] Dictated Date: 09/02/2020 08:17:05 Aircraft Lay Out Worker Date: 09/02/2020 14:00:22 Dictated By: BLANCA MOE DO
== END 2020-09-02 08:52 | disposition home or self-care (01) ==
LOC: ENDO 06:46
PROVIDERS: ATTEND Surgery
DX: K31.7 Polyp of stomach and duodenum (principal); I85.00 Esophageal varices without bleeding; K25.9 Gastric ulcer, unspecified as acute or chronic, without hemorrhage or perforation; K29.70 Gastritis, unspecified, without bleeding; I10 Essential (primary) hypertension; J44.9 Chronic obstructive pulmonary disease, unspecified; K74.60 Unspecified cirrhosis of liver; Z79.51 Long term (current) use of inhaled steroids; Z79.899 Other long term (current) drug therapy

== ENCOUNTER 2020-11-11 05:10 | Inpatient (IN) | payer BC ==
[2020-11-11] VITALS (9 sets, daily range): BP systolic 90–117; BP diastolic 41–67
[~2020-11-11] VITALS: Ht 188 cm; Wt 151.2 kg
[2020-11-11] MEDS ORDERED: RT-ALBUTEROL INHALER HFA (VENTOLIN HFA) 18 GM IH ONE (05:21)
[2020-11-11] MEDS ORDERED: ACETAMINOPHEN 500 MG TAB (TYLENOL) ONE (05:24)
[2020-11-11] MEDS ORDERED: ACETAMINOPHEN 500 MG TAB (TYLENOL) PO ONE (05:30)
[2020-11-11 05:41] LABS: BASOPHILS % (AUTO) 0 % (0-10); EOSINOPHILS % (AUTO) 0 % (0-10); HEMATOCRIT 35 % (40-54); LYMPHOCYTES # (AUTO) 0.2 10^3/uL (1.0-4.0); LYMPHOCYTES % (AUTO) 2 % (12-44); MEAN CORPUSCULAR HEMOGLOBIN 38 pg (25-34); MEAN CORPUSCULAR HGB CONC 37 g/dL (32-36); MEAN CORPUSCULAR VOLUME 104 fL (80-99); MEAN PLATELET VOLUME 12.3 fL (9.0-12.2); MONOCYTES # (AUTO) 0.3 10^3/uL (0.0-1.0); MONOCYTES % (AUTO) 2 % (0-12); NEUTROPHILS # (AUTO) 11.3 10^3/uL (1.8-7.8); NEUTROPHILS % (AUTO) 95 % (42-75); PLATELET COUNT 62 10^3/uL (130-400); WHITE BLOOD COUNT 11.9 10^3/uL (4.3-11.0)
[2020-11-11 05:43] LABS: ABG BASE EXCESS -6.5 MMOL/L (-2.5-2.5); ABG OXYGEN SATURATION 100 % (94-100); ABG PCO2 26 MMHG (35-45); ABG PH 7.43 (7.37-7.43); ABG PO2 146 MMHG (79-93); ABG TCO2 17.5 MMOL/L (21.0-31.0)
[2020-11-11 05:52] LABS: ALLENS TEST POSITIVE
[2020-11-11 05:53] LABS: INSPIRED O2 50% BIPAP; PATIENT TEMP 38.1; VENTILATOR NO
[2020-11-11 05:59] LABS: ALBUMIN 2.9 GM/DL (3.2-4.5)
[2020-11-11 06:00] LABS: POTASSIUM 5.3 MMOL/L (3.6-5.0)
[2020-11-11 06:01] LABS: CALCIUM 8.4 MG/DL (8.5-10.1)
--- NOTE | 2020-11-11 06:01 | Diagnostic Imaging Report ---
INDICATION: Sepsis Portable chest 5:38 AM Heart size and pulmonary vascularity are normal. Lungs are clear. There are no effusions or pneumothoraces. IMPRESSION: Negative chest Dictated by: Dictated on workstation # [id number]
[2020-11-11 06:02] LABS: TOTAL PROTEIN 6.6 GM/DL (6.4-8.2)
[2020-11-11 06:04] LABS: BILIRUBIN,TOTAL 3.4 MG/DL (0.1-1.0)
[2020-11-11 06:06] LABS: CREATININE SERUM 1.39 MG/DL (0.60-1.30)
[2020-11-11 06:20] LABS: FIBRIN DEGRADATION PRODUCTS 10.64 UG/ML (0.00-0.49); INR 1.5 (0.8-1.4); PROTHROMBIN TIME PATIENT 18.2 SEC (12.2-14.7)
[2020-11-11 06:29] LABS: ANISOCYTOSIS SLIGHT; BAND NEUTROPHILS 11 %; EOSINOPHILS % (MANUAL) 1 %; LYMPHOCYTES % (MANUAL) 2 %; MONOCYTES % (MANUAL) 3 %; NEUTROPHILS % (MANUAL) 83 %; TOXIC GRANULATION/VACUOLAZATIO 3+
--- NOTE | 2020-11-11 06:30 | NUR ---
DR. ARCE UPDATED PT , MARIUSZ, ON STATUS AND TO BE ADMITTED TO ICU. UPDATED ON TIMES CHIEF DIVERSITY OFFICER/STAFF TO CALL CRIME DATA SPECIALIST WITH PT UPDATES.
--- NOTE | 2020-11-11 06:30 | NUR ---
PT MARIUSZ CAN BE REACHED AT [phone].
--- NOTE | 2020-11-11 06:37 | ED General ---
General Chief Complaint: Respiratory Problems Stated Complaint: SOA Source of Information: Patient, EMS, Family, Old Records Exam Limitations: Physical Impairments (TAJ ARCE MD) History of Present Illness Date Seen by Provider: Nov 11, 2020 Time Seen by Provider: 05:10 Initial Comments This 65-year-old gentleman presents to the emergency room via EMS from his home and [place] due to shortness of breath. He received a DuoNeb treatment and is maintaining oxygen saturations on 4 L nasal cannula. However, he is in respiratory distress and has altered mental status. History was partially obtained from his by phone. He has alpha 1 antitrypsin deficiency causing both hepatic and pulmonary failure. He also has history of esophageal varices with a prior severe GI bleed. There is black coloration in his mouth consistent with dried blood. His reports he has had no evidence of melena or hematemesis, and she watches for those conditions closely at home. She also reports he has had 2 episodes of hepatic encephalopathy since . Dr. Lind is his primary care provider. He receives his specialty care at [facility]. He is febrile during assessment. reports urine output was poor 2 days ago but improved yesterday after pushing fluids. (TAJ ARCE MD) Allergies and Home Medications Allergies Coded Allergies: No Known Drug Allergies (Unverified , 09/07/18) Home Medications Albuterol Sulfate 18 Gm Hfa.aer.ad, 2 PUFF INH Q6H PRN for SHORTNESS OF BREATH, (Reported) Carvedilol 25 Mg Tablet, 12.5 MG PO BID, (Reported) TAKES OF A 25MG TAB Cholecalciferol (Vitamin D3) 125 Mcg Tablet, 125 MCG PO DAILY, (Reported) Furosemide 40 Mg Tablet, 40 MG PO DAILY PRN for FLUID RETENTION, (Reported) Iron,Carbonyl/Ascorbic Acid 1 Each Tablet.dr, 1 EACH PO DAILY, (Reported) Lactulose 10 Gm/15 Ml Solution, 30 ML PO TID PRN for CONSTIPATION-3RD LINE, (Reported) Multivitamin 1 Each Tablet, 1 EACH PO DAILY, (Reported) Pantoprazole Sodium 40 Mg Tablet.dr, 40 MG PO BID, (Reported) Potassium Chloride 20 Meq Tab.er.prt, 10 MEQ PO DAILY, (Reported) TAKES OF A 20NEQ TAB Rosuvastatin Calcium 10 Mg Tablet, 10 MG PO HS, (Reported) Spironolactone 100 Mg Tablet, 150 MG PO DAILY, (Reported) TAKES 1 & OF A 100MG TAB Tiotropium Br/Olodaterol HCl 4 Gm Mist.inhal, 2 PUFF INH DAILY, (Reported) Vitamin A Palmitate 10,000 Unit Capsule, 10,000 UNIT PO DAILY, (Reported) Patient Home Medication List Home Medication List Reviewed: Yes (TAJ ARCE MD) Home Medication List Reviewed: Yes (ADIS MCGREGOR MD) Review of Systems Review of Systems Constitutional: see HPI EENTM: no symptoms reported Respiratory: see HPI Cardiovascular: no symptoms reported Gastrointestinal: see HPI Genitourinary: see HPI Musculoskeletal: no symptoms reported Skin: no symptoms reported Psychiatric/Neurological: See HPI Hematologic/Lymphatic: No Symptoms Reported Immunological/Allergic: no symptoms reported (TAJ ARCE MD) Past Oexrkcf-Omziaw-Dnobbu Hx Past Med/Social Hx: Reviewed Nursing Past Med/Soc Hx (TAJ ARCE MD) Patient Social History Alcohol Use: Occasionally Uses Number of Drinks Today: AA Alcohol Beverage of Choice: Beer 2nd Hand Smoke Exposure: No Recent Hopitalizations: No (TAJ ARCE MD) Immunizations Up To Date Tetanus Booster (TDap): Unknown Date of Influenza Vaccine: Aug 14, 2020 (TAJ ARCE MD) Seasonal Allergies Seasonal Allergies: Yes (TAJ ARCE MD) Past Medical History Surgeries: Yes (hernia, knee scope) Orthopedic Respiratory: Yes COPD (Secondary to alpha-1 antitrypsin deficiency) Currently Using CPAP: No Currently Using BIPAP: No Cardiac: Yes (CHF) Hypertension Neurological: No Genitourinary: No Gastrointestinal: Yes (esophageal varices) Abdominal Hernia, Liver Disease/Jaundice (Alpha-1 antitrypsin deficiency), Cirrhosis Musculoskeletal: No Endocrine: No HEENT: No Cancer: No Psychosocial: No Integumentary: No Blood Disorders: No Adverse Reaction/Blood Tranf: No (TAJ ARCE MD) Family Medical History Patient reports no known family medical history. No Pertinent Family Hx (TAJ ARCE MD) Physical Exam-Suspected Sepsis Physical Exam Vital Signs Vital Signs - First Documented 11/11/20 10:40 FiO2 40 (ADIS MCGREGOR MD) Vital Signs Capillary Refill : (TAJ ARCE MD) Height, Weight, BMI Height: 6'1.00" Weight: 285lbs. 0.0oz. 129.022714ff; 9.34 BMI Method:Stated General Appearance: WD/WN, Moderate Distress HEENT: PERRL/EOMI, Normal ENT Inspection Neck: Normal Inspection Respiratory: Accessory Muscle Use, Decreased Breath Sounds, Respiratory Distress, Wheezing Cardiovascular: Regular Rate, Rhythm, No Murmur, Other (Moderate bilateral lower extremity edema) Extremity: Normal Inspection, Pedal Edema, Swelling Neurologic/Psychiatric: shaft sinker II-XII Norm as Tested, Other (Lethargic, disoriented, unable to answer some questions) Skin: normal color, warm/dry (TAJ ARCE MD) Focused Exam Sepsis Stage: Severe Sepsis Possible Source: Other Lactate Level 11/11/20 05:25: Lactic Acid Level 3.47*H 11/11/20 08:05: Lactic Acid Level 3.99*H 11/11/20 10:25: Lactic Acid Level 5.52*H (ADIS MCGREGOR MD) Time of Focused Exam: 07:41 Respiratory: Lungs Clear, Normal Breath Sounds Cardiovascular: Regular Rate, Rhythm (BP 111/62) Capillary Refill: Less Than 3 Seconds Peripheral Pulses: 2+ Radial Pulses (R), 2+ Radial Pulses (L) Skin: normal color, warm/dry Lactic Acid Level (ADIS MCGREGOR MD) Within 3hrs of presentation: Admin fluids, Admin ABX, Blood cultures prior to ABX's, Focus exam, Lactate level (ADIS MCGREGOR MD) Progress/Results/Core Measures Suspected Sepsis SIRS Temperature: Pulse: 79 Respiratory Rate: 25 Laboratory Tests 11/11/20 05:25: White Blood Count 11.9H Blood Pressure / Mean: 11/11/20 05:25: Lactic Acid Level 3.47*H Laboratory Tests 11/11/20 05:25: Creatinine 1.39H, INR Comment 1.5H, Platelet Count 62L, Total Bilirubin 3.4H (TAJ ARCE MD) Results/Orders Lab Results Laboratory Tests Test 11/11/20 05:15 11/11/20 05:25 11/11/20 05:33 11/11/20 05:55 Range/Units Coronavirus (COVID-19)(PCR) Negative Negative Coronavirus 2018 (JASBIR) Negative Negative White Blood Count 11.9 H 4.3-11.0 10^3/uL Red Blood Count 3.41 L 4.30-5.52 10^6/uL Hemoglobin 13.0 L 13.3-17.7 g/dL Hematocrit 35 L 40-54 % Mean Corpuscular Volume 104 H 80-99 fL Mean Corpuscular Hemoglobin 38 H 25-34 pg Mean Corpuscular Hemoglobin Concent 37 H 32-36 g/dL Red Cell Distribution Width 14.7 H 10.0-14.5 % Platelet Count 62 L 130-400 10^3/uL Mean Platelet Volume 12.3 H 9.0-12.2 fL Immature Granulocyte % (Auto) 1 % Neutrophils (%) (Auto) 95 H 42-75 % Lymphocytes (%) (Auto) 2 L 12-44 % Monocytes (%) (Auto) 2 0-12 % Eosinophils (%) (Auto) 0 0-10 % Basophils (%) (Auto) 0 0-10 % Neutrophils # (Auto) 11.3 H 1.8-7.8 10^3/uL Lymphocytes # (Auto) 0.2 L 1.0-4.0 10^3/uL Monocytes # (Auto) 0.3 0.0-1.0 10^3/uL Eosinophils # (Auto) 0.0 0.0-0.3 10^3/uL Basophils # (Auto) 0.0 0.0-0.1 10^3/uL Immature Granulocyte # (Auto) 0.1 0.0-0.1 10^3/uL Neutrophils % (Manual) 83 % Lymphocytes % (Manual) 2 % Monocytes % (Manual) 3 % Eosinophils % (Manual) 1 % Band Neutrophils 11 % Toxic Granulation 3+ Anisocytosis SLIGHT Prothrombin Time 18.2 H 12.2-14.7 SEC INR Comment 1.5 H 0.8-1.4 Activated Partial Thromboplast Time 43 H 24-35 SEC D-Dimer 10.64 H 0.00-0.49 UG/ML Sodium Level 119 *L 135-145 MMOL/L Potassium Level 5.3 H 3.6-5.0 MMOL/L Chloride Level 94 L 98-107 MMOL/L Carbon Dioxide Level 15 L 21-32 MMOL/L Anion Gap 10 5-14 MMOL/L Blood Urea Nitrogen 22 H 7-18 MG/DL Creatinine 1.39 H 0.60-1.30 MG/DL Estimat Glomerular Filtration Rate 51 BUN/Creatinine Ratio 16 Glucose Level 87 70-105 MG/DL Lactic Acid Level 3.47 *H 0.50-2.00 MMOL/L Calcium Level 8.4 L 8.5-10.1 MG/DL Corrected Calcium 9.3 8.5-10.1 MG/DL Total Bilirubin 3.4 H 0.1-1.0 MG/DL Aspartate Amino Transf (AST/SGOT) 73 H 5-34 U/L Alanine Aminotransferase (ALT/SGPT) 40 0-55 U/L Alkaline Phosphatase 159 H 40-136 U/L Lactate Dehydrogenase 400 H 125-220 U/L Troponin I < 0.028 <0.028 NG/ML C-Reactive Protein High Sensitivity 6.31 H 0.00-0.50 MG/DL B-Type Natriuretic Peptide 268.3 H <100.0 PG/ML Total Protein 6.6 6.4-8.2 GM/DL Albumin 2.9 L 3.2-4.5 GM/DL Procalcitonin 1.87 H <0.10 NG/ML Blood Gas Puncture Site LEFT RADIAL Blood Gas Patient Temperature 38.1 Arterial Blood pH 7.43 7.37-7.43 Arterial Blood Partial Pressure CO2 26 L 35-45 MMHG Arterial Blood Partial Pressure O2 146 H 79-93 MMHG Arterial Blood HCO3 17 *L 23-27 MMOL/L Arterial Blood Total CO2 17.5 L 21.0-31.0 MMOL/L Arterial Blood Oxygen Saturation 100 94-100 % Arterial Blood Base Excess -6.5 L -2.5-2.5 MMOL/L Pavel Test POSITIVE Blood Gas Ventilator Setting NO Blood Gas Inspired Oxygen 50% BIPAP Urine Color YELLOW Urine Clarity CLEAR Urine pH 5.0 5-9 Urine Specific Heath >=1.030 1.016-1.022 Urine Protein TRACE H NEGATIVE Urine Glucose (UA) NEGATIVE NEGATIVE Urine Ketones TRACE H NEGATIVE Urine Nitrite NEGATIVE NEGATIVE Urine Bilirubin 1+ H NEGATIVE Urine Urobilinogen 1.0 < = 1.0 MG/DL Urine Leukocyte Esterase NEGATIVE NEGATIVE Urine RBC (Auto) NEGATIVE NEGATIVE Urine RBC 0-2 /HPF Urine WBC 5-10 H /HPF Urine Squamous Epithelial Cells 2-5 /HPF Urine Crystals PRESENT H /LPF Urine Amorphous Sediment MOD JOYCE URATES H /LPF Urine Bacteria FEW H /HPF Urine Casts PRESENT /LPF Urine Hyaline Casts 5-10 H /LPF Urine Granular Casts 5-10 H /LPF Urine Mucus NEGATIVE /LPF Urine Culture Indicated CULTURE PENDING Test 11/11/20 06:55 11/11/20 08:05 11/11/20 10:25 Range/Units Ammonia 48 H 11-32 UMOL/L Lactic Acid Level 3.99 *H 5.52 *H 0.50-2.00 MMOL/L (ADIS MCGREGOR MD) Micro Results Microbiology 11/11/20 Blood Culture - Preliminary, Resulted Staphylococcus aureus 11/11/20 Blood Culture - Preliminary, Resulted Staphylococcus aureus 11/11/20 Influenza Types A,B Antigen (BERTA) - Final, Complete (ADIS MCGREGOR MD) My Orders Orders - ADIS MCGREGOR MD Cefepime Injection (Maxipime Injection) (11/11/20 07:00) Ns Iv 1000 Ml (Sodium Chloride 0.9%) (11/11/20 07:00) Azithromycin Injection (Zithromax Inject (11/11/20 08:00) Us Abdomen Complete 43199 (11/11/20 07:58) Ns Iv 1000 Ml (Sodium Chloride 0.9%) (11/11/20 08:45) (ADIS MCGREGOR MD) Medications Given in ED (DAIS MCGREGOR MD) Vital Signs/I&O 11/11/20 20:01 O2 Delivery Nasal Cannula (ADIS MCGREGOR MD) Vital Signs/I&O Capillary Refill : (TAJ ARCE MD) Progress Note : Time: 06:37 Progress Note Patient was seen and examined upon arrival. Septic work-up was pursued. No source of infection has been found at this time. Rapid Covid and influenza screens were negative. Black catheter was placed and urine was noted to be dark. BiPAP was placed and albuterol inhaler was given inline. Dexamethasone was administered. Covid PCR is pending. Patient is stable on BiPAP at this time. Care of this patient is being transitioned to Dr. Mcgregor. Tylenol was given for fever. Ammonia level is pending. (TAJ ARCE MD) Progress Note : Time: 07:38 Progress Note 0738 Care assumed at shift change from Dr. Atwood. Ammonia level in the low 40s. Patient seems to be perking up just a little bit. Case was discussed with Dr. Radha Lind the patient's primary care physician. She requests ICU admission and consultations with Dr. Moe for a paracentesis to rule out spontaneous ba cterial peritonitis and also consultations with Dr. Serna for consultation for his ICU care. Patient's blood pressure is a little bit soft at 96 over 60s at this time patient is not tachycardic. He did get Tylenol for a fever of 101. She would like me to add a azithromycin for coverage of mycoplasma. Patient at this time meets criteria for severe sepsis. 0840 Lab called with second lactic acid has gone up from 3.4-3.99. We will open up the patient's fluids as he is intravascularly volume depleted. I did have his saline running just at 150 an hour but will open up the rest of this liter and let it bolus and then add a second liter. (ADIS MCGREGOR MD) ECG Initial ECG Impression Date: Nov 11, 2020 Initial ECG Impression Time: 06:04 Initial ECG Rate: 106 Initial ECG Rhythm: S.Tach Comment Sinus tachycardia with no ST elevation or depression. Left anterior fascicular block. No axis deviation. (TAJ ARCE MD) Diagnostic Imaging Diagonstic Imaging: Xray Plain Films/CT/US/NM/MRI: chest Comments Chest x-ray viewed by me and report reviewed. See report below: NAME: JASKARAN MARSHALL MED REC#: [id number] PT STATUS: REG ER : 1955 PHYSICIAN: TAJ ARCE MD ADMIT DATE: 11/11/20/ER Draft Date of Exam:11/11/20 CHEST 1 VIEW, AP/PA ONLY INDICATION: Sepsis Portable chest 5:38 AM Heart size and pulmonary vascularity are normal. Lungs are clear. There are no effusions or pneumothoraces. IMPRESSION: Negative chest Dictated on workstation # [id number] Dict: 11/11/20 0548 Trans: 11/11/20 0559 [id number] Interpreted by: SUYAPA HAYWOOD MD (TAJ ARCE MD) Departure Communication (Admissions) Time/Spoke to Admitting Phy: 07:[address] Radha Lind, patient's primary care physician. Will admit to the ICU with consults to Dr. Moe and Dr. Serna Time/Spoke to Consulting Phy: 07:[address] Serna will see as soon as the patient gets to the ICU [address] Moe for ultrasound for paracentesis for SBP (ADIS MCGREGOR MD) Impression Primary Impression: Respiratory failure Qualified Codes: J96.01 - Acute respiratory failure with hypoxia Additional Impressions: COPD exacerbation Cayev-0-csuivcalzvm deficiency Altered mental status Qualified Codes: R41.82 - Altered mental status, unspecified Hepatic encephalopathy Disposition: ADMITTED INPATIENT Condition: Stable Admissions Decision to Admit Reason: Admit from ER (General) Decision to Admit/Date: Nov 11, 2020 Time/Decision to Admit Time: 05:10 (TAJ ARCE MD) Decision to Admit Reason: Admit from ER (General) Decision to Admit/Date: Nov 11, 2020 Time/Decision to Admit Time: 07:30 (ADIS MCGREGOR MD) Departure-Patient Inst. Referrals: BRENNA LIND DO (PCP/Family) Primary Care Physician TAJ ARCE MD Nov 11, 2020 06:37 ADIS MCGREGOR MD Nov 11, 2020 07:44
[2020-11-11 06:45] LABS: BILIRUBIN,URINE 1+ (NEGATIVE); CLARITY,URINE CLEAR; COLOR,URINE YELLOW; GLUCOSE, URINE (UA) NEGATIVE (NEGATIVE); KETONES,URINE TRACE (NEGATIVE); LEUKOCYTE ESTERASE ,URINE NEGATIVE (NEGATIVE); NITRITE,URINE NEGATIVE (NEGATIVE); PROTEIN,URINE TRACE (NEGATIVE)
[2020-11-11] MEDS ORDERED: CEFEPIME INJECTION 1,000 MG in WATER (STERILE) FOR INJECTION 10 ML IV ONE ×2 (06:45→07:00)
[2020-11-11] MEDS ORDERED: NS IV 1000 ML 1,000 ML IV SCH ×4 (06:45→11:45)
[2020-11-11 07:02] LABS: AMORPHOUS SEDIMENT,UR MOD AMOR URATES /LPF; BACTERIA,URINE FEW /HPF; RBC,URINE 0-2 /HPF
[2020-11-11] MEDS ORDERED: AZITHROMYCIN INJECTION 500 MG in NS (IVPB) 250 ML IV ONE (08:00)
--- NOTE | 2020-11-11 08:35 | NUR ---
PER DR MCGREGOR, PT REMOVED FROM CPAP AT THIS TIME AND CONVERTED TO NC AT 4 L TO SEE HOW PT RESPONDS. PT GIVEN ORAL CARE AT THIS TIME. BLOOD NOTICED ON PT LIPS, TEETH AND TONGUE. WHEN WASH CLOTH APPLIED TO LIPS, THERE APPEARS TO BE SCABS AND BLEEDING COMING FROM PT LIPS. 60 ML OF DARK YELLOW URINE NOTED IN [place] AT THIS TIME.
--- NOTE | 2020-11-11 08:45 | NUR ---
PT TRANSITIONED BACK TO BIPAP AT THIS TIME PER DR BALBIR TURNER.
--- NOTE | 2020-11-11 09:35 | Diagnostic Imaging Report ---
INDICATION: Ascites. PROCEDURE: Ultrasound abdomen complete. TECHNIQUE: Multiple real-time grayscale images were obtained of the abdomen in various projections. Liver is normal in size at 15 cm. The liver does show a parenchymal heterogeneity but no discrete liver mass is identified. Portal vein is patent and shows normal direction of flow. There is some moderate gallbladder distention. The gallbladder wall is borderline in thickness at 3 mm. No stones are identified. The common duct is obscured. The pancreas is obscured. Spleen is enlarged at 19 cm. Aorta and IVC are obscured. Kidneys are without calculi or hydronephrosis. There is no ascites. IMPRESSION: 1. Liver parenchymal heterogeneity but no discrete liver mass is detected. 2. Mildly dilated gallbladder without evidence of cholelithiasis. Gallbladder wall is borderline in thickness. 3. Splenomegaly. 4. No evidence of ascites. Dictated by: Dictated on workstation # [id number]
[2020-11-11] MEDS ORDERED: SODIUM BICARB 8.4% 50 MEQ/50 ML VIAL IV ONE (10:45)
[2020-11-11] MEDS ORDERED: ALBUMIN 25% 25 GM/100 ML 100 ML IV NR (10:45)
[2020-11-11] MEDS: RT-ALBUTEROL INHALER HFA (VENTOLIN HFA) 18 GM IH SCH ×2 (10:46→15:21)
--- NOTE | 2020-11-11 10:55 | Pulmonary Consultation ---
History of Present Illness History of Present Illness Date Seen by Provider: Nov 11, 2020 Time Seen by Provider: 10:48 Date of Admission History of Present Illness 65yo pt has hx of alpha 1 antitrypsin deficiency causing both hepatic and pulmonary failure presented to ED secondary to worsening SOB Allergies and Home Medications Allergies Coded Allergies: No Known Drug Allergies (Unverified , 09/07/18) Home Medications Albuterol Sulfate 18 Gm Hfa.aer.ad, 2 PUFF INH Q6H PRN for SHORTNESS OF BREATH, (Reported) Carvedilol 25 Mg Tablet, 12.5 MG PO BID, (Reported) TAKES OF A 25MG TAB Cholecalciferol (Vitamin D3) 125 Mcg Tablet, 125 MCG PO DAILY, (Reported) Furosemide 40 Mg Tablet, 40 MG PO DAILY PRN for FLUID RETENTION, (Reported) Iron,Carbonyl/Ascorbic Acid 1 Each Tablet.dr, 1 EACH PO DAILY, (Reported) Lactulose 10 Gm/15 Ml Solution, 30 ML PO TID PRN for CONSTIPATION-3RD LINE, (Reported) Multivitamin 1 Each Tablet, 1 EACH PO DAILY, (Reported) Pantoprazole Sodium 40 Mg Tablet.dr, 40 MG PO BID, (Reported) Potassium Chloride 20 Meq Tab.er.prt, 10 MEQ PO DAILY, (Reported) TAKES OF A 20NEQ TAB Rosuvastatin Calcium 10 Mg Tablet, 10 MG PO HS, (Reported) Spironolactone 100 Mg Tablet, 150 MG PO DAILY, (Reported) TAKES 1 & OF A 100MG TAB Tiotropium Br/Olodaterol HCl 4 Gm Mist.inhal, 2 PUFF INH DAILY, (Reported) Vitamin A Palmitate 10,000 Unit Capsule, 10,000 UNIT PO DAILY, (Reported) Past Ciafyqh-Bifrfw-Gwzzua Hx Past Med/Social Hx: Reviewed Nursing Past Med/Soc Hx Patient Social History Alcohol Use: Occasionally Uses Number of Drinks Today: AA Alcohol Beverage of Choice: Beer 2nd Hand Smoke Exposure: No Recent Infectious Disease Expo: No Recent Hopitalizations: No Immunizations Up To Date Tetanus Booster (TDap): Unknown Date of Influenza Vaccine: Aug 14, 2020 Seasonal Allergies Seasonal Allergies: Yes Past Medical History Surgeries: Yes (hernia, knee scope) Orthopedic Respiratory: Yes COPD (Secondary to alpha-1 antitrypsin deficiency) Currently Using CPAP: No Currently Using BIPAP: No Cardiac: Yes (CHF) Hypertension Neurological: No Genitourinary: No Gastrointestinal: Yes (esophageal varices) Abdominal Hernia, Liver Disease/Jaundice (Alpha-1 antitrypsin deficiency), Cirrhosis Musculoskeletal: No Endocrine: No HEENT: No Cancer: No Psychosocial: No Integumentary: No Blood Disorders: No Adverse Reaction/Blood Tranf: No Family Medical History Patient reports no known family medical history. No Pertinent Family Hx Review of Systems Time Seen by Provider: 11:17 Sepsis Event Evaluation Height, Weight, BMI Height: 6'1.00" Weight: 285lbs. 0.0oz. 129.382348vp; 34.00 BMI Method:Stated Exam Exam Vital Signs Date Time Temp Pulse Resp B/P (MAP) Pulse Ox O2 Delivery O2 Flow Rate FiO2 11/11/20 10:39 96 11/11/20 10:24 38.0 40.00 11/11/20 10:15 98 18 99/48 (65) 100 NIV Bilevel 40.00 11/11/20 10:00 38.9 79 25 133/70 (91) 100 NIV Bilevel 11/11/20 05:42 79 25 100 50.00 11/11/20 05:10 97 Nasal Cannula 4.00 11/11/20 05:10 38.9 106 24 133/70 (91) 97 Nasal Cannula 4.00 Height & Weight Height: 6'1.00" Weight: 285lbs. 0.0oz. 129.341541bq; 34.00 BMI Method:Stated General Appearance: WD/WN, Moderate Distress HEENT: PERRL/EOMI, Normal ENT Inspection Neck: Normal Inspection Respiratory: Lungs Clear, Normal Breath Sounds Cardiovascular: Regular Rate, Rhythm (BP 111/62) Capillary Refill: Less Than 3 Seconds Peripheral Pulses: 2+ Radial Pulses (R), 2+ Radial Pulses (L) Extremity: Normal Inspection, Pedal Edema, Swelling Neurologic/Psychiatric: staff rn II-XII Norm as Tested, Other (Lethargic, disoriented, unable to answer some questions) Results Lab Laboratory Tests 11/11/20 05:25 Assessment/Plan Assessment/Plan Acute respiratory failure with hypoxia -Currently requiring BiPAP -trial pt to Vapotherm -Rapid COVID is negative and PCR is pending Severe Sepsis -Continue Cefepime and Azithromycin -Bowers cultures pending -MRSA swab is pending Hypotension -Give another liter bolus of NS -Give 25gms of albumin Metabolic acidosis -Give 2 amps of Bicarb -IVF give another liter bolus of LR -Monitor -Repeat Labs Anemia with thrombocytopenia -Start protonix -Monitor hb probable PE with elevated DDIMEr -Start Arixtra -Monitor HB -Check bilateral dopplers r/o DVT Thrombocytopenia -Monitor Acute renal failure with hyperkalemia -Repeat labs now Alpha 1 Antitripsin deficiency -pt follows with [facility] Hyponatremia -monitor Chronic liver failure Hepatic encephalopathy -Stat Rifaxamine -Monitor ammonia level COPDAE -MAT -oxygen -BiPAP PRN UPDATE: Dr. Prieto has been talking to family about comfort care. I believe pt and family are going to decide on [employer] today. REJI GAXIOLA DO Nov 11, 2020 10:55
[2020-11-11] MEDS ORDERED: IBUPROFEN 600 MG (MOTRIN) TAB PO PRN (11:15)
[2020-11-11] MEDS ORDERED: ALBUMIN 25% 25 GM/100 ML 100 ML IV ONE (11:19)
[2020-11-11] MEDS ORDERED: FONDAPARINUX 10 MG/0.8 ML SQ SCH (11:27)
--- NOTE | 2020-11-11 12:22 | History & Physical-Hospitalist ---
History of Present Illness HPI/Chief Complaint CC: AMS with septic shock HPI: This is a 65yoWM clinic patient of mine for several years with a past medical history of ESLD due to alpha-1 antitrypsin deficiency and alcohol use history with SAVAGE, COPD, HTN who presented to the ER via EMS due to AMS. Patient has had a significant decline the past 2 weeks and refused to come to clinic or hospital and [facility] increase Lactulose to treat acute hepatic encephalopathy. Patien manuela was found to be in a critical status with septic shock and fever and unknown source of infection. ABx and IVF initiated per protocol and biPAP and consultation with Dr Moe and Dr Serna ensued and moved to ICU. I saw the patient in the elevator and he was able to talk to me and open his eyes. Patient began to decline rapidly and elevated lactic acid indicated catastrophic event so I spoke to and son and all in agreement we would not escalate care or transfer to higher level and patient was made DNR and then moved to comfort care due to worsening labs and no recovery potential assessed. A few hours after BCx drawn patient was found to have Staph Aureus in all BCx. Source: family, RN/MD, old records Exam Limitations: clinical condition Date Seen 11/11/20 Time Seen by a Provider: 10:15 Attending Physician Tonie Lind DO PCP Tonie Lind DO Referring Physician Date of Admission Nov 11, 2020 at 08:15 Home Medications & Allergies Home Medications Reviewed patient Home Medication Reconciliation performed by pharmacy medication reconciliations application technician and/or nursing. Patients Allergies have been reviewed. Allergies Allergies Coded Allergies No Known Drug Allergies (Tivjdskahd20/25/18) Past Vreqycj-Wdewlj-Gkqucf Hx Past Med/Social Hx: Reviewed Nursing Past Med/Soc Hx, Reviewed and Corrections made Patient Social History Marrital Status: Employed/Student: employed Alcohol Use: Occasionally Uses Alcohol Beverage of Choice: Beer Recreational Drug Use: No Smoking Status: Former Smoker 2nd Hand Smoke Exposure: No Recent Foreign Travel: No Contact w/other who traveled: No Recent Hopitalizations: No Recent Infectious Disease Expo: No Immunizations Up To Date Tetanus Booster (TDap): Unknown Date of Influenza Vaccine: Aug 14, 2020 Seasonal Allergies Seasonal Allergies: Yes Past Medical History Surgeries: Orthopedic Respiratory: Asthma, COPD, Pneumonia, Sleep Apnea alpha-1 antitrypsin def Currently Using CPAP: No Currently Using BIPAP: No Cardiac: Hypertension Gastrointestinal: Abdominal Hernia, Liver Disease/Jaundice (Alpha-1 antitrypsin deficiency), Gastrointestinal Bleed, Esophageal Varices, Cirrhosis Musculoskeletal: Chronic Back Pain History of Blood Disorders: No Adverse Reaction to Blood Humphries: No Family History Patient reports no known family medical history. No Pertinent Family Hx Review of Systems Constitutional: see HPI, dizziness, fever, malaise, weakness Physical Exam Physical Exam Vital Signs Vital Signs - First Documented 11/11/20 10:40 FiO2 40 Capillary Refill : Less Than 3 Seconds Height, Weight, BMI Height: 6'1.00" Weight: 285lbs. 0.0oz. [id number]; 34.00 BMI Method:Stated General Appearance: Anxious, Chronically ill, Moderate Distress, Obese Respiratory: Lungs Clear, Normal Breath Sounds Cardiovascular: No Murmur, Tachycardia Extremity: Pedal Edema, Slow Capillary Refill, Swelling Neurologic/Psychiatric: Alert, Disoriented, Motor Weakness (generalized) Results Results/Procedures Labs Laboratory Tests 11/11/20 05:25 Patient resulted labs reviewed. Assessment/Plan Admission Diagnosis Assessment: Septic shock of unknown source (after comfort care initiated found to be due to Staph Aureus bacteremia of unknown source) ESLD due to alpha-1 antitrypsin deficiency and alcohol history was in midst of pursuing liver transplant at [facility] Catastrophic critical illness incompatible with any recovery placed on comfort care and moved to floor COPD GIB hx Esophageal varices SAVAGE Edema Plan: Move out of ICU Comfort care Tachypnea management Admission Status: Inpatient Order (span 2 midnights) Reason for Inpatient Admission: shock Diagnosis/Problems Diagnosis/Problems (1) Septic shock (2) End of life care (3) End stage liver disease (4) Alpha 1-antitrypsin PiMS phenotype (5) Esophageal varices Status: Acute (6) Cirrhosis Status: Acute (7) Coagulopathy Status: Acute (8) Portal hypertension Status: Acute (9) COPD (chronic obstructive pulmonary disease) (10) Volume overload Status: Acute (11) Wheezing Status: Resolved Resolution Date/Time: 09/14/18 @ 13:50 (12) Anemia (13) Hyponatremia (14) Abnormal liver enzymes (15) Hepatic encephalopathy Status: Acute (16) Respiratory failure Status: Acute Qualifiers: Chronicity: acute Respiratory failure complication: hypoxia Qualified Codes: J96.01 - Acute respiratory failure with hypoxia (17) Altered mental status Status: Acute Qualifiers: Altered mental status type: unspecified Qualified Codes: R41.82 - Altered mental status, unspecified (18) COPD exacerbation Status: Acute TONIE LIND DO Nov 11, 2020 12:21
[2020-11-11] MEDS ORDERED: LORazepam INJ 2 MG/ML (ATIVAN) VIAL IV PRN (13:00)
[2020-11-11] MEDS ORDERED: CEFEPIME 1,000 MG/SWFI 10 ML IV PUSH IV SCH ×2 (13:00)
[2020-11-11] MEDS ORDERED: VANCOMYCIN INJECTION 2,500 MG in NS IV 500 ML 500 ML IV NR (13:04)
--- NOTE | 2020-11-11 13:15 | NUR ---
VANCOMYCIN DOSING SCR 1.39; CRCL ~ 65; BOLUS VANC 20 MG/KG X 129 ~ 2500 MG THEN VANC 15 MG/KG ~ 2 GM Q24H CHECK TROUGH LEVEL 11/13 1200 HOLD DOSE AND CONTACT PHARMACY IF LEVEL IS GREATER THAN 20 OR LESS THAN 10
--- NOTE | 2020-11-11 13:35 | NUR ---
1300-DR. LIND SPOKE WITH THIS RN ABOUT TURNING OFF ALL TREATMENT AND CALLING TO BE AT BEDSIDE. DR. LIND WANTS UPDATED WITH 'S ARRIVAL TO TRANSITION PT TO COMFORT CARE. 1330- LEENA CALLED AND UPDATED. STATES SHE WILL BE UP TO HOSPITAL IN 1 HOUR TO BE WITH PT. ISOLATION INSTRUCTIONS GIVEN OVER THE PHONE AND LEENA VOICED UNDERSTANDING.
--- NOTE | 2020-11-11 13:46 | Diagnostic Imaging Report ---
PROCEDURE: US Venous Lower Ext Sherif. TECHNIQUE: Multiple real-time grayscale images were obtained over the lower extremities in various projections, bilaterally. Additional duplex Doppler and color Doppler images were also obtained. INDICATION: Respiratory distress and bilateral lower extremity swelling. FINDINGS: There is no evidence of right or left lower extremity DVT. Both lower extremity deep venous system show normal compressibility with normal response to augmentation and Valsalva. No fluid collection or mass is detected. IMPRESSION: No evidence of right or left lower extremity DVT. Dictated by: Dictated on workstation # [id number]
[2020-11-11] MEDS ORDERED: POTA20TA15 PO (14:01)
[2020-11-11] MEDS ORDERED: VITA-203 PO (14:01)
[2020-11-11] MEDS ORDERED: IRON1TAB97 PO (14:01)
[2020-11-11] MEDS ORDERED: ROSU10TA28 PO (14:01)
[2020-11-11] MEDS ORDERED: FURO40TA4 PO (14:01)
[2020-11-11] MEDS ORDERED: LACT10SO PO (14:01)
[2020-11-11] MEDS ORDERED: MULT-1136 PO (14:01)
[2020-11-11] MEDS ORDERED: CALC-250 PO (14:01)
[2020-11-11] MEDS ORDERED: TIOT4MIS3 INH (14:01)
[2020-11-11] MEDS ORDERED: ALBU18HF2 INH (14:02)
--- NOTE | 2020-11-11 14:03 | NUR ---
SPOKE WITH THE PTS AND WENT THRU THE EXT MED HISTORY TO COMPLETE THE MED REC CARVEDILOL 25MG- DIRECTIONS ARE 1 TAB BID HOWEVER PT TAKES TAB BID POTASSIUM 20MEQ- DIRECTIONS ARE 1 TAB DAILY BUT PT TAKES TAB DAILY OTC MEDS: MTV VIT A 10,000 VIT D3 VITRON C
--- NOTE | 2020-11-11 14:20 | Consultation - Surgery ---
History of Present Illness History of Present Illness Patient Consulted On(ewa/time) 11/11/20 14:15 Date Seen by Provider: Nov 11, 2020 Time Seen by Provider: 12:30 History of Present Illness consult requested by Dr. lemon for possible paracentesis Patient is a 65 year old male with alpha 1 antitrypsin deficiency causing both hepatic and pulmonary failure. Was brought to ed for worsening shortness of breath. Patient is lethargic and not able to provide much information at this time. On bipap. Had fever, covid rapid negative. PCR pending. States having shortness of breath, no abdominal pain. Had u/s 1. Liver parenchymal heterogeneity but no discrete liver mass is detected. 2. Mildly dilated gallbladder without evidence of cholelithiasis. Gallbladder wall is borderline in thickness. 3. Splenomegaly. 4. No evidence of ascites. Allergies and Home Medications Allergies Coded Allergies: No Known Drug Allergies (Unverified , 09/07/18) Home Medications Albuterol Sulfate 18 Gm Hfa.aer.ad, 2 PUFF INH Q6H PRN for SHORTNESS OF BREATH, (Reported) Carvedilol 25 Mg Tablet, 12.5 MG PO BID, (Reported) TAKES OF A 25MG TAB Cholecalciferol (Vitamin D3) 125 Mcg Tablet, 125 MCG PO DAILY, (Reported) Furosemide 40 Mg Tablet, 40 MG PO DAILY PRN for FLUID RETENTION, (Reported) Iron,Carbonyl/Ascorbic Acid 1 Each Tablet.dr, 1 EACH PO DAILY, (Reported) Lactulose 10 Gm/15 Ml Solution, 30 ML PO TID PRN for CONSTIPATION-3RD LINE, (Reported) Multivitamin 1 Each Tablet, 1 EACH PO DAILY, (Reported) Pantoprazole Sodium 40 Mg Tablet.dr, 40 MG PO BID, (Reported) Potassium Chloride 20 Meq Tab.er.prt, 10 MEQ PO DAILY, (Reported) TAKES OF A 20NEQ TAB Rosuvastatin Calcium 10 Mg Tablet, 10 MG PO HS, (Reported) Spironolactone 100 Mg Tablet, 150 MG PO DAILY, (Reported) TAKES 1 & OF A 100MG TAB Tiotropium Br/Olodaterol HCl 4 Gm Mist.inhal, 2 PUFF INH DAILY, (Reported) Vitamin A Palmitate 10,000 Unit Capsule, 10,000 UNIT PO DAILY, (Reported) Patient Home Medication List Home Medication List Reviewed: Yes Past Yjzlpnl-Jrzgew-Xvdvld Hx Patient Social History Number of Drinks Today: AA 2nd Hand Smoke Exposure: No Recent Hopitalizations: No Immunizations Up To Date Tetanus Booster (TDap): Unknown Date of Influenza Vaccine: Aug 14, 2020 Seasonal Allergies Seasonal Allergies: Yes Surgeries History of Surgeries: Yes (hernia, knee scope) Surgeries: Orthopedic Respiratory History of Respiratory Disorde: Yes Respiratory Disorders: COPD (Secondary to alpha-1 antitrypsin deficiency) Cardiovascular History of Cardiac Disorders: Yes (CHF) Cardiac Disorders: Hypertension Neurological History of Neurological Disord: No Genitourinary History of Genitourinary Disor: No Gastrointestinal History of Gastrointestinal Di: Yes (esophageal varices) Gastrointestinal Disorders: Abdominal Hernia, Liver Disease/Jaundice (Alpha-1 antitrypsin deficiency), Cirrhosis Musculoskeletal History of Musculoskeletal Dis: No Endocrine History of Endocrine Disorders: No HEENT History of HEENT Disorders: No Cancer History of Cancer: No Psychosocial History of Psychiatric Problem: No Integumentary History of Skin or Integumenta: No Blood Transfusions History of Blood Disorders: No Adverse Reaction to a Blood Tr: No Family Medical History Significant Family History: No Pertinent Family Hx Family Medial History: Patient reports no known family medical history. Review of Systems-General ROS-Unable to Obtain: lethargic unable to provide much information Physical Exam-General Problems Physical Exam Vital Signs Vital Signs - First Documented 11/11/20 10:40 FiO2 40 Capillary Refill : Less Than 3 Seconds General Appearance: WD/WN, no apparent distress HEENT: normal ENT inspection Neck: non-tender, supple Respiratory: chest non-tender, other (equal chest rise, on bipap) Cardiovascular: regular rate, rhythm, no JVD Gastrointestinal: non tender, soft; No tenderness Rectal: deferred Back: no CVA tenderness, no vertebral tenderness Extremities: non-tender, normal inspection Neurologic/Psychiatric: no motor/sensory deficits; No alert, No oriented x 3; other (able to answer some questions, but limited) Skin: normal color, warm/dry Lymphatic: no adenopathy Data Review Labs Laboratory Tests 11/11/20 05:15: Coronavirus 2019 (JASBIR) Negative 11/11/20 05:25: White Blood Count 11.9H, Red Blood Count 3.41L, Hemoglobin 13.0L, Hematocrit 35L , Mean Corpuscular Volume 104H, Mean Corpuscular Hemoglobin 38H, Mean Corpuscular Hemoglobin Concent 37H, Red Cell Distribution Width 14.7H, Platelet Count 62L, Mean Platelet Volume 12.3H, Immature Granulocyte % (Auto) 1, Neutrophils (%) (Auto) 95H, Lymphocytes (%) (Auto) 2L, Monocytes (%) (Auto) 2, Eosinophils (%) (Auto) 0, Basophils (%) (Auto) 0, Neutrophils # (Auto) 11.3H, Lymphocytes # (Auto) 0.2L, Monocytes # (Auto) 0.3, Eosinophils # (Auto) 0.0, Basophils # (Auto) 0.0, Immature Granulocyte # (Auto) 0.1, Neutrophils % (Manual) 83, Lymphocytes % (Manual) 2, Monocytes % (Manual) 3, Eosinophils % (Manual) 1, Band Neutrophils 11, Toxic Granulation 3+, Anisocytosis SLIGHT, Prothrombin Time 18.2H, INR Comment 1.5H, Activated Partial Thromboplast Time 43H, D-Dimer 10.64H, Sodium Level 119*L, Potassium Level 5.3H, Chloride Level 94L, Carbon Dioxide Level 15L, Anion Gap 10, Blood Urea Nitrogen 22H, Creatinine 1.39H, Estimat Glomerular Filtration Rate 51, BUN/Creatinine Ratio 16, Glucose Level 87, Lactic Acid Level 3.47*H, Calcium Level 8.4L, Corrected Calcium 9.3, Total Bilirubin 3.4H, Aspartate Amino Transf (AST/SGOT) 73H, Alanine Aminotransferase (ALT/SGPT) 40, Alkaline Phosphatase 159H, Lactate Dehydrogenase 400H, Troponin I < 0.028, C-Reactive Protein High Sensitivity 6.31H, B-Type Natriuretic Peptide 268.3H, Total Protein 6.6, Albumin 2.9L, Procalcitonin 1.87H 11/11/20 05:33: Blood Gas Puncture Site LEFT RADIAL, Blood Gas Patient Temperature 38.1, Arterial Blood pH 7.43, Arterial Blood Partial Pressure CO2 26L, Arterial Blood Partial Pressure O2 146H, Arterial Blood HCO3 17*L, Arterial Blood Total CO2 17.5L, Arterial Blood Oxygen Saturation 100, Arterial Blood Base Excess -6.5L, Pavel Test POSITIVE, Blood Gas Ventilator Setting NO, Blood Gas Inspired Oxygen 50% BIPAP 11/11/20 05:55: Urine Color YELLOW, Urine Clarity CLEAR, Urine pH 5.0, Urine Specific [place] >=1.030, Urine Protein TRACEH, Urine Glucose (UA) NEGATIVE, Urine Ketones TRACEH , Urine Nitrite NEGATIVE, Urine Bilirubin 1+H, Urine Urobilinogen 1.0, Urine Leukocyte Esterase NEGATIVE, Urine RBC (Auto) NEGATIVE, Urine RBC 0-2, Urine WBC 5-10H, Urine Squamous Epithelial Cells 2-5, Urine Crystals PRESENTH, Urine Amorphous Sediment MOD JOYCE URATESH, Urine Bacteria FEWH, Urine Casts PRESENT, Urine Hyaline Casts 5-10H, Urine Granular Casts 5-10H, Urine Mucus NEGATIVE, Urine Culture Indicated CULTURE PENDING 11/11/20 06:55: Ammonia 48H 11/11/20 08:05: Lactic Acid Level 3.99*H 11/11/20 10:25: Lactic Acid Level 5.52*H Microbiology 11/11/20 Influenza Types A,B Antigen (BERTA) - Final, Complete Assessment/Plan Assessment/Plan Assessment/Plan alpha 1 antitrypsin deficiency causing both hepatic and pulmonary failure acute respiratory failure with hypoxia borderline gallbladder wall thickening which is likely from ascites no fluid by u/s to do paracentesis get PICC line bipap medical management do not feel the gallbladder is the issue chronic borderline thickening, if think it is could get HIDA. BLANCA RODRIGUEZ DO Nov 11, 2020 14:20
[2020-11-11] MEDS: morphine INJ 4 MG/ML 1 ML (VIAL/SYRINGE) IV PRN ×5 (14:45→23:54)
[2020-11-11] MEDS ORDERED: ONDANSETRON 4 MG/2 ML (SDV) Z0FRAN IVP PRN (16:00)
[2020-11-11] MEDS ORDERED: ARTIFICAL TEARS 0.4 ML UNIT DOSE (REFRESH PLUS) OU PRN (16:00)
[2020-11-11] MEDS ORDERED: BISACODYL 10 MG SUPP (DULCOLAX) PR PRN (16:00)
[2020-11-11] MEDS ORDERED: ACETAMINOPHEN 650 MG SUPP (TYLENOL) PR PRN (16:00)
[2020-11-11] MEDS ORDERED: HYDROmorphone 2 MG/ML VIAL (DILAUDID) IVP PRN (16:00)
[2020-11-11] MEDS ORDERED: LORazepam INJ 2 MG/ML (ATIVAN) VIAL IVP PRN (16:00)
[2020-11-11] MEDS: LORazepam INJ 2 MG/ML (ATIVAN) VIAL IVP PRN ×2 (18:38→22:02)
[2020-11-11] MEDS ORDERED: RIFAXIMIN 550 MG TABLET (XIFAXAN) PO SCH (21:00)
[2020-11-12] MEDS: LORazepam INJ 2 MG/ML (ATIVAN) VIAL IVP PRN ×3 (01:48→13:45)
[2020-11-12] MEDS: morphine INJ 4 MG/ML 1 ML (VIAL/SYRINGE) IV PRN ×13 (01:48→23:37)
[2020-11-12] MEDS ORDERED: AZITHROMYCIN 500 MG/NS 250 ML IVPB IV SCH ×2 (08:00)
[2020-11-12] MEDS ORDERED: PANTOPRAZOLE 40 MG (PROTONIX) VIAL IV SCH (09:00)
[2020-11-12] MEDS: SALIVA STIMULANT MOUTH SPRAY (BIOTENE) 1.5 OZ MM PRN ×3 (12:27→23:43)
[2020-11-12] MEDS ORDERED: VANCOMYCIN INJECTION 2,000 MG in NS IV 500 ML 500 ML IV SCH (13:00)
--- NOTE | 2020-11-12 13:01 | Progress Note - Hospitalist ---
Subjective HPI/CC On Admission Date Seen by Provider: Nov 12, 2020 Time Seen by Provider: 11:30 CC: AMS with septic shock HPI: This is a 65yoWM clinic patient of mine for several years with a past medical history of ESLD due to alpha-1 antitrypsin deficiency and alcohol use history with SAVAGE, COPD, HTN who presented to the ER via EMS due to AMS. Patient has had a significant decline the past 2 weeks and refused to come to clinic or hospital and [facility] increase Lactulose to treat acute hepatic encephalopathy. Patient was found to be in a critical status with septic shock and fever and unknown source of infection. ABx and IVF initiated per protocol and biPAP and consultation with Dr Moe and Dr Serna ensued and moved to ICU. I saw the patient in the elevator and he was able to talk to me and open his eyes. Patient began to decline rapidly and elevated lactic acid indicated catastrophic event so I spoke to and son and all in agreement we would not escalate care or transfer to higher level and patient was made DNR and then moved to comfort care due to worsening labs and no recovery potential assessed. A few hours after BCx drawn patient was found to have Staph Aureus in all BCx. Subjective/Events-last exam End of life care Sat down to visit at bedside Monitoring pain Focused Exam Lactate Level 11/11/20 05:25: Lactic Acid Level 3.47*H 11/11/20 08:05: Lactic Acid Level 3.99*H 11/11/20 10:25: Lactic Acid Level 5.52*H Time of Focused Exam: 07:41 Objective Exam Vital Signs Vital Signs Date Time Temp Pulse Resp B/P (MAP) Pulse Ox O2 Delivery O2 Flow Rate FiO2 11/12/20 21:09 Nasal Cannula 2.00 11/12/20 19:15 38.0 11/12/20 12:00 12 11/11/20 17:00 97 107/49 (68) 100 11/11/20 10:40 40 Capillary Refill : Less Than 3 Seconds General Appearance: No Apparent Distress, WD/WN, Chronically ill, Other (comatose) Results/Procedures Lab Patient resulted labs reviewed. Assessment/Plan Assessment and Plan Assess & Plan/Chief Complaint Assessment: End of life care ESLD Catastrophic and overwhelming setic shock from MSSA bacteremia possible due to recent nasal sores Plan: Comfort care Diagnosis/Problems Diagnosis/Problems (1) Septic shock (2) End of life care (3) End stage liver disease (4) Alpha 1-antitrypsin PiMS phenotype (5) Esophageal varices Status: Acute (6) Cirrhosis Status: Acute (7) Coagulopathy Status: Acute (8) Portal hypertension Status: Acute (9) COPD (chronic obstructive pulmonary disease) (10) Volume overload Status: Acute (11) Wheezing Status: Resolved Resolution Date/Time: 09/14/18 @ 13:50 (12) Anemia (13) Hyponatremia (14) Abnormal liver enzymes (15) Hepatic encephalopathy Status: Acute (16) Respiratory failure Status: Acute Qualifiers: Chronicity: acute Respiratory failure complication: hypoxia Qualified Codes: J96.01 - Acute respiratory failure with hypoxia (17) Altered mental status Status: Acute Qualifiers: Altered mental status type: unspecified Qualified Codes: R41.82 - Altered mental status, unspecified (18) COPD exacerbation Status: Acute BRENNA LIND DO Nov 12, 2020 13:01
[2020-11-12] MEDS: GLYCOPYRROLATE 0.2 MG/ML (ROBINUL) 2 ML VIAL IV PRN ×2 (18:59→23:37)
[2020-11-12] MEDS: RT-ALBUTEROL/IPRATROPIUM 3 ML (DUONEB) VIAL INH PRN (20:12)
[2020-11-13] MEDS: LORazepam INJ 2 MG/ML (ATIVAN) VIAL IVP PRN (02:06)
[2020-11-13] MEDS: morphine INJ 4 MG/ML 1 ML (VIAL/SYRINGE) IV PRN (02:07)
--- NOTE | 2020-11-13 03:30 | NUR ---
ROUNDING ON PATIENT AND FOUND NO SIGNS OF LIFE, DIANA GRIFFIN CONFIRMED. AWAKENED SPOUSE AND NOTIFIED HER OF PASSING. CONTACTED DR LIND, [facility], [facility], AND HOME. POST MORTEM CARES PROVIDED
--- NOTE | 2020-11-13 06:22 | NUR ---
HOME PICKED UP BODY AT 0615
--- NOTE | 2020-11-13 06:24 | Discharge Summary ---
Discharge Summary Hospital Course Was the Problem List Reviewed?: Yes Problems/Dx: (1) Septic shock (2) End of life care (3) End stage liver disease (4) Alpha 1-antitrypsin PiMS phenotype (5) Esophageal varices Status: Acute (6) Cirrhosis Status: Acute (7) Coagulopathy Status: Acute (8) Portal hypertension Status: Acute (9) COPD (chronic obstructive pulmonary disease) (10) Volume overload Status: Acute (11) Wheezing Status: Resolved (12) Anemia (13) Hyponatremia (14) Abnormal liver enzymes (15) Hepatic encephalopathy Status: Acute (16) Respiratory failure Status: Acute Qualifiers: Qualified Codes: J96.01 - Acute respiratory failure with hypoxia (17) Altered mental status Status: Acute Qualifiers: Qualified Codes: R41.82 - Altered mental status, unspecified (18) COPD exacerbation Status: Acute Hospital Course Date of Admission: Nov 11, 2020 at 08:15 Admission Diagnosis : Family Physician/Provider: Tonie Prieto DO Date of Discharge: 11/13/20 Discharge Diagnosis: Respiratory failure, Liver failure, septic shock from MSSA bacteremia likely from nasal sores Hospital Course: SHort course after he was admitted for critical illness and placed on biPAP and given aggressive IVF and abx empirically for infection without identifiable source. ICU admit prompting multiple consultations and started process of moving to higher level of care. Long conversation with then son and we decided to move to comfort care and patient was allowed family visitors and patient was ultimately pronounced with at bedside. Labs and Pending Lab Test: Microbiology 11/11/20 MRSA Screen - Final, Complete MRSA not isolated 11/11/20 Urine Culture - Final, Complete NO GROWTH 11/11/20 Blood Culture - Final, Complete Staphylococcus aureus Home Meds Active Reported Ventolin Hfa (Albuterol Sulfate) 18 Gm Hfa.aer.ad 2 Puff INH Q6H PRN Vitron-C Tablet (Iron,Carbonyl/Ascorbic Acid) 1 Each Tablet.dr 1 Each PO DAILY Vitamin D3 (Cholecalciferol (Vitamin D3)) 125 Mcg Tablet 125 Mcg PO DAILY Vitamin A (Vitamin A Palmitate) 10,000 Unit Capsule 10,000 Unit PO DAILY Multivitamin 1 Each Tablet 1 Each PO DAILY Furosemide 40 Mg Tablet 40 Mg PO DAILY PRN Rosuvastatin Calcium 10 Mg Tablet 10 Mg PO HS Potassium Chloride 20 Meq Tab.er.prt 10 Meq PO DAILY TAKES OF A 20NEQ TAB Lactulose 10 Gm/15 Ml Solution 30 Ml PO TID PRN Stiolto Respimat Inhal [place] (Tiotropium Br/Olodaterol HCl) 4 Gm Mist.inhal 2 Puff INH DAILY Carvedilol 25 Mg Tablet 12.5 Mg PO BID TAKES OF A 25MG TAB Spironolactone 100 Mg Tablet 150 Mg PO DAILY TAKES 1 & OF A 100MG TAB Pantoprazole Sodium 40 Mg Tablet.dr 40 Mg PO BID Assessment/Pt Instructions Discharge Planning: <30 minutes discharge planning Discharge Physical Examination Vital Signs Vital Signs Date Time Temp Pulse Resp B/P (MAP) Pulse Ox O2 Delivery O2 Flow Rate FiO2 11/12/20 21:09 Nasal Cannula 2.00 11/12/20 19:15 38.0 11/12/20 12:00 12 11/11/20 17:00 97 107/49 (68) 100 11/11/20 10:40 40 General Appearance: Other () Allergies: Coded Allergies: No Known Drug Allergies (Unverified , 09/07/18) Discharge Summary Date of Admission Nov 11, 2020 at 08:15 Date of Discharge Admission Diagnosis Assessment: Septic shock of unknown source (after comfort care initiated found to be due to Staph Aureus bacteremia of unknown source) ESLD due to alpha-1 antitrypsin deficiency and alcohol history was in midst of pursuing liver transplant at [facility] Catastrophic critical illness incompatible with any recovery placed on comfort care and moved to floor COPD GIB hx Esophageal varices SAVAGE Edema Plan: Move out of ICU Comfort care Tachypnea management Comfort Measures/ End of Life Care: Comfort Measures Discharge Diagnosis (1) Septic shock (2) End of life care (3) End stage liver disease (4) Alpha 1-antitrypsin PiMS phenotype (5) Esophageal varices Status: Acute (6) Cirrhosis Status: Acute (7) Coagulopathy Status: Acute (8) Portal hypertension Status: Acute (9) COPD (chronic obstructive pulmonary disease) (10) Volume overload Status: Acute (11) Wheezing Status: Resolved (12) Anemia (13) Hyponatremia (14) Abnormal liver enzymes (15) Hepatic encephalopathy Status: Acute (16) Respiratory failure Status: Acute Qualifiers: Qualified Codes: J96.01 - Acute respiratory failure with hypoxia (17) Altered mental status Status: Acute Qualifiers: Qualified Codes: R41.82 - Altered mental status, unspecified (18) COPD exacerbation Status: Acute TONIE PRIETO DO Nov 13, 2020 06:24
[2020-11-13] MEDS ORDERED: TROUGH ORDER-PHARMACY XX NR (12:00)
== END 2020-11-13 06:15 | disposition expired | DRG 871 ==
LOC: ER 05:10 → ICU 08:15 → 4TH 17:09
PROVIDERS: ADMIT Internal Medicine; ATTEND Internal Medicine
PROC: 5A09357 Assistance with Respiratory Ventilation, Less than 24 Consecutive Hours, Continuous Positive Airway Pressure (ICD-10-PCS; principal; 2020-11-11)
DX: A41.01 Sepsis due to Methicillin susceptible Staphylococcus aureus (principal); J96.01 Acute respiratory failure with hypoxia; J44.1 Chronic obstructive pulmonary disease with (acute) exacerbation; E87.2 Acidosis; N17.9 Acute kidney failure, unspecified; E87.1 Hypo-osmolality and hyponatremia; I85.00 Esophageal varices without bleeding; R18.8 Other ascites; Z66 Do not resuscitate; Z51.5 Encounter for palliative care; I50.9 Heart failure, unspecified; I11.0 Hypertensive heart disease with heart failure; K74.60 Unspecified cirrhosis of liver; Z20.822 Contact with and (suspected) exposure to COVID-19; E88.01 Alpha-1-antitrypsin deficiency; R41.82 Altered mental status, unspecified; R65.20 Severe sepsis without septic shock; I95.9 Hypotension, unspecified; D64.9 Anemia, unspecified; D69.6 Thrombocytopenia, unspecified; E87.5 Hyperkalemia; K72.10 Chronic hepatic failure without coma; G47.33 Obstructive sleep apnea (adult) (pediatric); Z87.891 Personal history of nicotine dependence; G89.29 Other chronic pain; M54.9 Dorsalgia, unspecified; K82.8 Other specified diseases of gallbladder
CPT/HCPCS: 36415; 36600; 51702; 71045; 76700; 80053; 81000; 82140; 82805; 83605; 83615; 83880; 84145; 84484; 85007; 85027; 85379; 85610; 85730; 86141; 87040; 87077; 87081; 87088; 87635; 87804; 93005; 93970; 94640; 94660; 99291